=== PATIENT | female | born 1960 | race Caucasian/White ===

== ENCOUNTER 2024-12-13 19:33 | Emergency (ER) | payer OTHER, SELFPAY ==
[2024-12-13 19:31] VITALS: BP 124/71; PULSE 68; TEMP 36.8; O2SAT 99; BMI 27.6
--- NOTE | 2024-12-13 19:42 | ED_ITS ---
HPI HPI - General Adult General Chief complaint: Dizziness Stated complaint: DIZZINESS Time Seen by Provider: 12/13/24 19:34 Source: patient Mode of arrival: ambulance History of Present Illness HPI narrative: 64-year-old female presented to the emergency department for an episode of vertigo. She was sitting on a couch at home just before coming into the emergency department and for about 5 minutes she felt like she was spinning. It has now subsided and she does not have a headache. She has had mild episodes like this in the past but never to the point where it had to be looked at by a physician. No headache or localized weakness. No nausea vomiting diarrhea or fever or injury. Related Data Previous Rx's ?Medication ?Instructions ?Recorded meclizine 25 mg tablet 25 mg PO TID PRN dizziness #20 tabs 12/13/24 Allergies Allergy/AdvReac Type Severity Reaction Status Date / Time NSAIDS (Non-Steroidal Allergy Mild Anaphylaxis Verified 12/13/24 19:46 Anti-Inflamma omeprazole (From Prilosec) Allergy Mild Anaphylaxis Verified 12/13/24 19:46 Penicillins Allergy Mild Anaphylaxis Verified 12/13/24 19:46 Sulfa (Sulfonamide Allergy Mild Anaphylaxis Verified 12/13/24 19:46 Antibiotics) Opioid HPI Opioid Management Most Recent Opioid Data: No Data to Display Review of Systems ROS Narrative A ten point review of systems is negative except as noted above. PFSH PFSH Social History Little interest or pleasure in doing things: not at all Feeling down, depressed, or hopeless: not at all Exam Narrative Exam Narrative: Nurses note and vital signs reviewed and patient is not hypoxic. General: The patient appears well and in no apparent distress. Patient is resting comfortably on cart. Skin: Warm, dry, no pallor noted. There is no rash noted. Head: Normocephalic, atraumatic; neck supple Eye: Normal conjunctiva, no drainage, EOMI. PERRL Ears, Nose, Mouth, and Throat: oral mucosa is moist. Nares patent. TMs are normal Cardiovascular: Regular Rate and Rhythm Respiratory: Patient is in no distress, no accessory muscle use, lungs are clear to auscultation, no wheezing, rales or rhonchi Back: non-tender GI: Soft and nontender. Musculoskeletal: The patient has no evidence of calf tenderness, no pitting edema, symmetrical pulses noted bilaterally Neurological: A&O x4, normal speech; upper and lower extremity strength intact Psychiatric: Cooperative Constitutional Vital Signs, click to edit/add: Last Vital Signs Temp 98.2 F 12/13/24 19:31 Pulse 63 12/13/24 21:43 Resp 16 12/13/24 21:43 BP 104/77 12/13/24 21:43 Pulse Ox 97 12/13/24 21:43 O2 Del Method Room Air 12/13/24 19:31 Course Vital Signs Vital signs: Vital Signs Temperature 98.2 F 12/13/24 19:31 Pulse Rate 68 12/13/24 19:31 Respiratory Rate 16 12/13/24 19:31 Blood Pressure 124/71 12/13/24 19:31 Pulse Oximetry 99 12/13/24 19:31 Oxygen Delivery Method Room Air 12/13/24 19:31 Temperature 98.2 F 12/13/24 19:31 Pulse Rate 63 12/13/24 21:43 Respiratory Rate 16 12/13/24 21:43 Blood Pressure 104/77 12/13/24 21:43 Pulse Oximetry 97 12/13/24 21:43 Oxygen Delivery Method Room Air 12/13/24 19:31 Medical Decision Making MDM Narrative Medical decision making narrative: Her workup including CT brain is negative. She remains asymptomatic. She will be discharged home with a prescription for Antivert and follow-up with her doctor if needed. Treatment diagnosis and follow-up were discussed with the patient. Differential Diagnosis Differential Diagnosis: Vertigo, ICH, dehydration, electrolyte imbalance, anemia Lab Data Lab results reviewed: Yes I reviewed the patient's lab results Labs: Lab Results 12/13/24 Range/Units 20:00 WBC 3.2 L (4.0-11.0) 10^3/uL RBC 4.04 L (4.20-5.40) 10^6/uL Hgb 13.0 (12.0-16.0) g/dL Hct 39.4 (36.0-48.0) % MCV 97.5 (81.0-99.0) fL MCH 32.2 (26.7-34.0) pg MCHC 33.0 (29.9-35.2) g/dL RDW 11.6 (11.0-15.0) % Plt Count 127 L (150-450) 10^3/uL MPV 8.8 L (9.5-13.5) fL Neut % (Auto) 46.6 (43.0-75.0) % Lymph % (Auto) 38.9 (20.5-60.0) % Greer % (Auto) 9.2 (1.7-12.0) % Eos % (Auto) 4.1 (0.9-7.0) % Baso % (Auto) 0.9 (0.2-2.0) % Neut # (Auto) 1.5 (1.4-6.5) 10^3/uL Lymph # (Auto) 1.2 (1.2-3.8) 10^3/uL Greer # (Auto) 0.3 (0.3-0.8) 10^3/uL Eos # (Auto) 0.1 (0.0-0.7) 10^3/uL Baso # (Auto) 0.0 (0.0-0.1) 10^3/uL Abs Immat Gran (auto) 0.01 (0.00-0.03) 10^3/uL Imm/Tot Granulo (auto) 0.3 (0.0-0.5) % Sodium 143 (136-145) mmol/L Potassium 3.8 (3.5-5.1) mmol/L Chloride 108 H (98-107) mmol/L Carbon Dioxide 27.7 (21.0-32.0) mmol/L Anion Gap 11.1 BUN 9.0 (7.0-18.0) mg/dL Creatinine 1.02 (0.55-1.02) mg/dL Est GFR ( Amer) >60 (>=60 mL/min/1.73m^2) Est GFR (Non-Af Amer) 55 L (>=60 mL/min/1.73m^2) BUN/Creatinine Ratio 8.8 Glucose 97 (74-106) mg/dL Calcium 8.6 (8.5-10.1) mg/dL ECG Data Attestation: I personally reviewed and interpreted this ECG as follows: (EKG on my interpretation shows normal sinus rhythm with rate of 63 and no acute change) Discharge Plan Discharge Chief Complaint: Dizziness Clinical Impression: Vertigo Patient Disposition: Home, Self-Care Time of Disposition Decision: 22:14 Condition: Good Mode of Transportation: Private Vehicle Prescriptions / Home Meds: New meclizine 25 mg tablet 25 mg PO TID PRN (Reason: dizziness) Qty: 20 0RF Print Language: Citizen Of [place] Instructions: Vertigo (ED) Referrals: Physician,Non-Staff, MD [Physician] - 1 week
[2024-12-13] MEDS: MECLIZINE HCL 12.5 MG TABLET 25 MG PO (20:01)
[2024-12-13 20:20] LABS: Basophils Percent Auto 0.9 % (0.2-2.0); Eosinophils Absolute Auto 0.1 10^3/uL (0.0-0.7); Eosinophils Percent Auto 4.1 % (0.9-7.0); Hematocrit 39.4 % (36.0-48.0); Immature Granulocytes Abs Auto 0.01 10^3/uL (0.00-0.03); Immature Granulocytes Pct Auto 0.3 % (0.0-0.5); Lymphocytes Absolute Auto 1.2 10^3/uL (1.2-3.8); Lymphocytes Percent Auto 38.9 % (20.5-60.0); Mean Corpuscular Hemoglobin 32.2 pg (26.7-34.0); Mean Corpuscular Volume 97.5 fL (81.0-99.0); Mean Platelet Volume 8.8 fL (9.5-13.5); Monocytes Absolute Auto 0.3 10^3/uL (0.3-0.8); Monocytes Percent Auto 9.2 % (1.7-12.0); Neutrophils Absolute Auto 1.5 10^3/uL (1.4-6.5); Neutrophils Percent Auto 46.6 % (43.0-75.0); Platelet Count 127 10^3/uL (150-450); Red Blood Count 4.04 10^6/uL (4.20-5.40); Red Cell Distribution Width 11.6 % (11.0-15.0); White Blood Count 3.2 10^3/uL (4.0-11.0)
[2024-12-13 20:24] LABS: Anion Gap 11.1; BUN Creatinine Ratio 8.8; Calcium 8.6 mg/dL (8.5-10.1); Carbon Dioxide 27.7 mmol/L (21.0-32.0); Chloride 108 mmol/L (98-107); Estimated GFR (African America >60 (>=60 mL/min/1.73m^2); Estimated GFR (Non-African Ame 55 (>=60 mL/min/1.73m^2); Glucose 97 mg/dL (74-106); Potassium 3.8 mmol/L (3.5-5.1); Sodium 143 mmol/L (136-145)
[2024-12-13 20:58] VITALS: BP 123/79; PULSE 67; O2SAT 98
[2024-12-13 21:43] VITALS: BP 104/77; PULSE 63; O2SAT 97
[2024-12-13 22:22] VITALS: BP 110/65; PULSE 88; O2SAT 99
== END 2024-12-13 22:24 | disposition home or self-care (01) ==
PROVIDERS: Emergency Provider Emergency Medicine
DX: R42 Dizziness and giddiness (principal)
CPT/HCPCS: 36415; 70450; 80048; 85025; 93005; 99285

== ENCOUNTER 2025-05-31 09:46 | Outpatient (OUT) | payer OTHER, SELFPAY ==
--- NOTE | 2025-05-31 | XR_ITS ---
The [address] [address] Patient Name: ALEXYS GRAY MRN: [id number] date: 1960 Sex: F Assigned Patient Location: [facility] Current Patient Location: [facility] Accession/Order Number: [id number] Exam Date: 05/31/2025 10:05 Report Date: 05/31/2025 11:09 At the request of: CHAD ROJAS MD Procedure: XR hip RT 1V w/ pelvis AP WEIGHTBEARING PELVIS AND RIGHT HIP - 2 views COMPARISON: None CLINICAL DATA: Right hip pain for the past year radiating to the groin and thigh. No injury. Weightbearing AP view of pelvis and crosstable lateral view of the hip were obtained. There is osteopenia. There is no acute fracture or dislocation. The joint spaces are symmetric. There is minor hypertrophy at the periphery of the femoral heads. There is subtle sclerosis at the superior aspect of the femoral heads on the AP view. There is mild sclerosis at the SI joints, greater on the right. There is also mild degenerative change involving the lower imaged lumbar spine. XR/XR hip RT 1V w/ pelvis IMPRESSION: OSTEOPENIA AND DEGENERATIVE CHANGES, DESCRIBED. EARLY AVASCULAR NECROSIS OF THE HIPS IS NOT EXCLUDED ON THE CURRENT EXAM AND FOLLOW-UP COULD BE OBTAINED CLINICALLY WARRANTED. Impression dictated by: Rea Michele M.D. 05/31/2025 11:09 AM Dictation Location: [place] [address] Electronically authenticated by: [id number] Y Date: 05/31/2025 11:09
--- OUTSIDE RECORDS SUMMARY | 2025-05-31 09:54 | XMS_ITS | CCD ---
Author Organization [facility] CliniSyin Care Team Providers Care Seasoner Hand Name Role Phone RANDALL CHRISTENSEN Attending Unavailable Teto Tillman Referring Unavailab le Cal, Teto Werner Primary Care UnavailCHAD Germain Attending Unavailable Baljeet Barnard Referring Unavailable Cal, Teto Werner Primary Care Unavailab CHAD Graf Attending Unavailable Teto Tillman Referring Unavailab le Cal, Teto Werner Primary Care Unavailab Baljeet Hodge Primary Care Provider [phone] Cal, Teto Unavailable Cal, Teto Unavailable Cal, Teto Unavailable Cal, DO Teto Sigala Primary Care Provider Merlin Steel Attending Provider Chanell Armstrong Unavailable Cal DOTeto Primary Care Provider Cal DOTeto Primary Care Provider Cal, DO Teto Sigala Primary Care Provider [phone] Merlin Steel Attending Provider [phone] Cal, DO Teto Sigala Primary Care Provider MD Chad Lacy Attending Provider [phone] Teto Tillman DO Primary Care Provider Cal DOTeto Primary Care Provider Cal, DO Teto Sigala Primary Care Provider [phone] Cal, DO Teto Sigala Attending Provider MD Chad Lacy Referring Provider ASHLEIGH RajputN Merlin Oral Attending Provider Teto Tillman DO Primary Care Provider Chad Lacy MD Attending Provider Teto Tillman MD Primary Care Provider ELOISA VANEGAS Attending Unavailable ELOISA VANEGAS Referring Unavailable ELOISA VANEGAS Referring Unavailable JR. WELCH GEORGE C Attending Unavaila ble Yrui Martinez, Padmini DUNLAPjetan Unavailable Teto Tillman DO Primary Care Provider Chad Lacy MD Attending Provider Teto Tillman DO Primary Care Provider Ly Sahara DUNLAP Attending Provider [phone] Ly Sahara DUNLAP Other Provider [phone] Sahara Gomez Admitting Unavailable Sahara Gomez Attending Unavailable Teto Tillman Primary Care Unavailable Teto Tillman Primary Care Unavailable Perhtara, Chad S Admitting Unavailable PerhChad pacheco Attending Unavailable Teto Tillman Primary Care Unavailable Perhtara Chad S Admitting Unavailable PerhChad pacheco Attending Unavailable STEPPADMINI RIVERA JRJETAN Referring Unav ailable BARBARA, CHAD Estevez Attending Unavailable TETO TILLMAN Primary Care Unavailab le TETO TILLMAN Primary Care Unavailab le PERHCHAD PACHECO Attending Unavailable TETO TILLMAN Primary Care Unavailab le [place] Attending Unavailable PERHTARA CHAD S Referring Unavailable STEPPADMINI RIVERA JR CAJETAN Referring Unav ailable AZALEA IZUQIERDO Attending Unavailable TETO TILLMAN Primary Care Unavailab le AZALEA IZQUIERDO Referring Unavailable TETO TILLMAN Primary Care Unavailab le Allergies Allergy Classification Reported Allergen(s) Allergy Type Date of Onset Reaction(s) Facility Aspirin (1 source) Aspirin Drug Allergy 01-28-20 21 Anaphylaxis [facility] Bee pollen (1 source) Bee pollen Drug Allergy 01-14-20 07 Swelling [facility] Cephalosporins (antibiotic) (1 source) Cefaclor Drug Allergy 05-04-20 07 Swelling [facility] Macrolides (antibiotic) (2 sources) Clarithromycin Drug Allergy 07-04-20 19 Other: See Comments, Angioedema [facility] Penicillins (antibiotic) (1 source) Penicillins Drug Allergy 01-14-20 Swelling [facility] Proton Pump Inhibitors (1 source) Omeprazole Drug Allergy 01-14-20 Swelling [facility] Sulfonamides (antibiotic) (1 source) Sulfonamides (Antibiotic) Drug Allergy 01-14-20 Swelling [facility] (20 sources) Bee pollen; Translations: [BEE POLLEN] Drug Allergy 01-14-20 Swelling [facility] (20 sources) Cefaclor; Translations: [CEFACLOR] Drug Allergy 01-14-20 Swelling [facility] (20 sources) Non-steroidal anti-inflammatory agent; Translations: [NSAIDS (NON-STEROIDAL ANTI-INFLAMMATORY DRUG)] Propensity to adverse reactions 01-14-20 Swelling, Angioedema [facility] (20 sources) Omeprazole; Translations: [OMEPRAZOLE] Drug Allergy 01-14-20 07 Swelling, Unknown [facility] (12 sources) Penicillins; Translations: [PENICILLINS] Propensity to adverse reactions 01-14-20 Swelling [facility] (20 sources) Sulfonamides (Antibiotic); Translations: [SULFA (SULFONAMIDE ANTIBIOTICS)] Propensity to adverse reactions 01-14-20 07 Swelling, Angioedema, Unknown [facility] (15 sources) Gold Salts; Translations: [GOLD SALTS] Propensity to adverse reactions 01-14-20 07 Swelling [facility] (13 sources) Bee/Wasp/Ant venom Propensity to adverse reactions Unknown [place] Other (18 sources) Cephalexin Drug Allergy 04-16-20 24 Unknown [facility] (20 sources) Clarithromycin; Translations: [CLARITHROMYCIN] Drug Allergy 07-04-20 19 Other: See Comments [facility] (20 sources) Erythromycin; Translations: [ERYTHROMYCIN] Drug Allergy 01-28-20 21 Angioedema, Other: See Comments, Unknown [facility] (18 sources) Ibuprofen Drug Allergy 04-16-20 24 Unknown, Unknown Reaction [facility] (13 sources) Penicillin V Drug Allergy Unknown [place] Other (13 sources) Sulfamethoxazole Drug Allergy Unknown [place] Other (9 sources) Amoxicillin; Translations: [amoxicillin] Drug Allergy 07-04-20 19 Swelling of Lip/Tongue/Th roat [facility] (9 sources) NSAIDS (Non-Steroidal Anti-Inflamma; Translations: [NSAIDS (Non-Steroidal Anti-Inflamma] Allergy to substance 07-04-20 19 Unknown Reaction [facility] (14 sources) Non-steroidal anti-inflammatory agent Propensity to adverse reactions 01-14-20 Swelling [facility] (13 sources) Penicillins Propensity to adverse reactions 01-14-20 Swelling [facility] (11 sources) Pineapple; Translations: [PINEAPPLE] Propensity to adverse reactions 12-04-19 anaphylaxis [facility] (20 sources) Aspirin; Translations: [ASPIRIN] Drug Allergy 01-28-20 Anaphylaxis [facility] (20 sources) Pineapple Drug Allergy 12-04-19 Anaphylaxis [facility] (6 sources) bee venom protein (honey bee); Translations: [bee venom protein (honey bee)] Allergy to substance 04-16-20 24 unknown [facility] (6 sources) erythromycin base; Translations: [erythromycin base] Allergy to substance 04-16-20 24 Unknown Reaction [facility] (7 sources) Aluminum aspirin Drug Allergy 01-28-20 Anaphylaxis, Unknown [facility] (7 sources) Clarithromycin Allergy to substance 07-04-20 19 Unknown [facility] (7 sources) Honey bee venom Allergy to substance 08-26-20 23 Unknown [facility] (7 sources) Penicillins Drug Intolerance 01-14-20 07 Angioedema, Swelling, Unknown [facility] (7 sources) pineapple allergenic extract Drug Allergy 12-04-19 Anaphylaxis [facility] (12 sources) Gold Salts Propensity to adverse reactions 01-14-20 Swelling [facility] (9 sources) Penicillins Propensity to adverse reactions 01-14-20 Swelling [facility] (1 source) Cephalexin Drug Allergy 03-25-20 [facility] (1 source) Clarithromycin Drug Allergy 03-25-20 [facility] (1 source) Ibuprofen Drug Allergy 03-25-20 [facility] (1 source) Omeprazole Drug Allergy 03-25-20 [facility] (1 source) Penicillins Drug allergy (disorder) 03-25-20 [facility] (1 source) Sulfonamides (Antibiotic) Drug allergy (disorder) 03-25-20 [facility] (1 source) pineapple Drug allergy (disorder) 03-25-20 [facility] Medications Current Medications Medication Drug Class(es) Dates Sig (Normalized) Sig (Original) acetaminophen 325 mg / HYDROcodone bitartrate 10 mg oral tablet (20 sources) Opioid Agonist Start: 04-16-2024 take 1 tablet by mouth once daily as needed for pain Hydrocodone-Aceta minophen 10-325 mg tablet Active 1 TAB PO Daily as needed for pain April 16, 2024 12:00am Complies with drug therapy Start: 08-31-2022 take 1 tablet by mk th every twelve hours as needed HYDROcodone-Acetaminophen (NORCO) 10-325 mg per tablet Take 1 tablet by mouth twice daily as needed. 08/31/2022 Active Start: 07-13-2017 End: 07-04-2019 take 1 tablet by mouth three times daily as needed for pain Hydrocodone-Acetaminophen ([place]) 5-325 mg Tablet Discontinued 1 TAB PO Three times daily as needed for Pain July 13, 2017 12:00am July 04, 2019 2:29pm Start: 01-13-2007 End: 02-01-2022 take 1 tablet by mouth three times daily hydrocodone-acetaminophen (VICODIN ES) 7.5-750 mg ORAL Tab 1 tab 3 times per day 0 01/13/2007 02/01/2022 Discontinued take 1 tablet by mk th every six hours as needed HYDROcodone-acetaminophen (NORCO) 5-325 mg per tablet Take 1 tablet by mouth every 6 hours as needed. 0 Active Comment on above: Take 1 tablet by mk th every 6 hours as needed. 1 tab 3 times per da y Take 1 tablet by mk th twice daily as needed. betamethasone 0.5 mg/ml topical cream (20 sources) Corticosteroid Start: 08-25-2022 betamethasone dipropionate (DIPROSONE) 0.05 % cream APPLY ONE APPLICATION VIA EXTERNAL ROUTE TO AFFECTED AREA ONCE DAILY 08/25/2022 Active Betamethasone Di propionate 0.05 % 1 application to affected area Externally Once a day for 90 days Active Comment on above: APPLY ONE APPLICATIO N VIA EXTERNAL ROUTE TO AFFECTED AREA ONCE DAILY cholecalciferol 0.025 mg oral tablet (20 sources) Vitamin D Start: 07-04-20 take 1 tablet by mouth once daily Cholecalciferol (Vitamin D3) (Vitamin D3) 1,000 unit (25 mcg) Tablet Active 1000 UNIT PO Daily July 04, 2019 12:00am Complies with drug therapy cholecalciferol (VITAMIN D3) 400 unit tab Take 400 Units by mouth. Active take 1 capsule by [facility] every twenty-four hours Vitamin D3 50 MCG (1999 UT) 1 tablet Ora lly Once a day Active Comment on above: Take 400 Units by [facility]. cobamamide 0.1 mg / vitamin b12 5 mg sublingual tablet (8 sources) Vitamin B12 Start: 9 Cyanocobalamin-Cob amamide (B12) 5,000-100 mcg Lozenge Active 2500 MCG SUBLINGUAL Daily July 04, 2019 12:00am Complies with drug therapy diclofenac sodium 0.01 mg/mg topical gel (20 sources) Nonsteroidal Anti-inflammatory Drug Start: 9 End: 4 apply 2 g topically four times daily Diclofenac Sodium (Voltaren) 1 % Gel Active 2 GM TOPICAL Four times daily July 04, 2019 12:00am Complies with drug therapy Voltaren 1 % as directed Transdermal Active Comment on above: Apply 2 g to affecte d area. ferrous sulfate 325 mg oral tablet (20 sources) Start: 07-04-20 take 1 tablet by mouth once daily Ferrous Sulfate (Iron) 325 mg (65 mg iron) Tablet Active 325 MG PO Daily July 04, 2019 12:00am Complies with drug therapy Comment on above: Take 325 mg by mouth . folic acid 1 mg oral tablet (20 sources) Start: 01-14-20 End: 07-04-20 take 1 tablet by mouth once daily folic acid 1 mg ORAL Tab Take one (1) tablet daily. 0 01/13/2007 Active Comment on above: Take one (1) tablet daily. Iron (13 sources) Iron Active lactobacillus acidophilus [id number] unt / pectin 100 mg oral tablet (18 sources) End: 03-19-20 Lactobacillus Acid-Pectin (Acidophilus/[place] Pectin) tablet Take by mouth Active Comment on above: Take by mouth. lidocaine 0.05 mg/mg medicated patch (20 sources) Antiarrhythmic, Amide Local Anesthetic apply 1 dose transdermal route once daily lidocaine (Lidoderm) 5 % patch Place 1 patch on the skin 1 (one) time each day at the same time Active End: 03-19-2024 apply 1 dose transdermal route every twenty-four hours lidocaine (LIDODERM) 5 % Apply 1 Patch as directed q 24 HR. 0 03/19/2024 Discontinued (Course of therapy completed) Lidocaine 5 % 1 to 3 patches Externally daily as needed Active Comment on above: Apply 1 Patch as dir ected q 24 HR. meclizine hydrochloride 25 mg oral tablet (8 sources) Antiemetic Start: 03-25-2025 Meclizine 25 mg tablet Active 25 MG PO 2-3 TIMES PER DAY as needed for dizziness March 25, 2025 12:00am Complies with drug therapy Start: 12-14-2024 take 1 tablet by mk th every eight hours as needed meclizine (ANTIVERT) 25 mg tab Take 25 mg by mouth three times a day as needed. 12/14/2024 Active mecobalamin 1 mg chewable tablet (7 sources) Methylcobalamin ([id number]) 1 MG chewable tablet as directed Orally Active metaxalone 800 mg oral tablet (20 sources) Start: 2006 take 1 tablet by mouth three times daily metaxalone (SKELAXIN) 800 mg ORAL Tab 1 tab 3 times per day 0 01/13/2007 Active Comment on above: 1 tab 3 times per da y methylPREDNISolone (1 source) Corticosteroid Start: 2023 End: 2023 methylPREDNISolone (MEDROL, RENAE,) 4 mg Dose-Pack Indications: Psoriatic arthritis (HCC) Take as directed omn pack 21 tablet 3 03/19/2024 03/25/2024 Active morphine sulfate 30 mg extended release oral tablet (20 sources) Opioid Agonist Start: 2022 take 1 tablet by mouth every twelve hours morphine SR (MS CONTIN) 30 mg 12 hr tablet TAKE ONE TABLET BY MOUTH EVERY 12 HOURS -FILL ON [id number] 11/22/2022 Active Start: 01-13-2007 End: 07-04-2019 take 1 capsule by mouth every twelve hours Morphine 50 mg Capsule,Extend.Release Pellets Discontinued 50 MG PO Q12H July 04, 2019 12:00am July 04, 2019 2:29pm morphine CR (MS Contin) 30 MG 12 hr tablet Take 30 mg by mouth every 12 (twelve) hours Active take 1 tablet by mk th every twelve hours MS Contin 30 MG 1 tablet Orally every 12 hrs pain specialist Active take 1 tablet by mk th every twelve hours MS Contin 60 MG 1 tablet Orally every 12 hrs pain specialist Active Comment on above: 1 tab every 12hours TAKE ONE TABLET BY M OUTH EVERY 12 HOURS -FILL ON [id number] mupirocin 0.02 mg/mg topical ointment (2 sources) RNA Synthetase Inhibitor Antibacterial Start: 5 End: mupirocin (BACTROBAN) 2 % ointment Indications: Avascular necrosis of bone of right hip (HCC) Apply 1/2 inch strip to cotton swab and apply to each nostril twice daily for 5 days prior to and morning of surgery. Patient should start on July 27, 2025. 22 g 07/27/2025 08/01/2025 Active pravastatin sodium 40 mg oral tablet (20 sources) HMG-CoA Reductase Inhibitor Start: 7 End: take 1 tablet by mouth once daily pravastatin (PRAVACHOL) 40 mg tablet TAKE ONE TABLET BY MOUTH DAILY FOR 90 DAYS 12/28/2021 Active Comment on above: TAKE ONE TABLET BY M OUTH DAILY FOR 90 DAYS Probiotic (10 sources) take 2 tablets by mouth once daily Probiotic 2 TABLETS Orally Daily Active SUMAtriptan 100 mg oral tablet (20 sources) Serotonin-1b and Serotonin-1d Receptor Agonist Start: 4 Sumatriptan Succinate 100 mg tablet Active 100 MG PO As Directed as needed for migraine headache April 16, 2024 12:00am Complies with drug therapy Start: 04-16-2024 End: 03-25-2025 Sumatriptan 20 mg/actuation spray,non-aerosol Discontinued 20 MG INTRANASAL Every 2 hours as needed April 16, 2024 12:00am March 25, 2025 7:41am administer into one nostril as a single dose; if 2nd dose needed,administer into other nostril after at least 2 hrs, NTE 2 doses (40 mg) per episode SUMAtriptan (IMI TREX) 20 mg/actuation nasal spray Use 1 [place] in the nose every 2 hours as needed. Active SUMAtriptan (Imi trex) 20 MG/ACT nasal spray Administer 20 mg into one nostril See administration instructions Active take 1 spray(s) nasa l route every two hours SUMAtriptan 20 MG/ACT 1 spray Nasally at onset of headache. Can repeat once two hours later if needed for 30 day(s) Active Comment on above: Take 100 mg by mouth . Use 1 [place] in the n ose every 2 hours as needed. SUMAtriptan 20 MG/ACT (8 sources) take 1 spray(s) nasal route every two hours SUMAtriptan 20 MG/ACT 1 spray Nasally at onset of headache. Can repeat once two hours later if needed Active 24 hr topiramate 100 mg extended release oral capsule (20 sources) Start: 04-16-2024 take 1 capsule by mouth once daily Topiramate (Trokendi Xr) 100 mg capsule,extended release 24hr Active 100 MG PO Daily April 15, 2024 11:00pm Start: 04-16-2024 take [address] [facility] once daily Topiramate (Trokendi Xr) 100 mg capsule,extended release 24hr Active 100 MG PO Daily April 16, 2024 12:00am Start: 01-28-2022 take 1 capsule by mo ut once daily Topiramate (Trokendi Xr) 100 mg capsule,extended release 24hr Active 100 MG PO Daily April 16, 2024 12:00am Complies with drug therapy Start: 01-28-2022 TROKENDI XR 10 0 mg capsule 01/28/2022 Active Start: 07-13-2017 End: 04-16-2024 TROKENDI XR 200 mg capsule 0 01/28/2022 Active take [address] [facility] every twenty-four hours in the morning Trokendi XR 200 MG capsule sustained-release 24 hr Take 1 capsule by mouth in the morning. Active 1 ml ustekinumab 90 mg/ml prefilled syringe (20 sources) Interleukin-12 Antagonist, Interleukin-23 Antagonist Start: 04-16-2024 End: 03-25-2025 Ustekinumab (Stelara) 90 mg/mL syringe Discontinued MG SUBCUT EVERY 12 WEEKS April 16, 2024 12:00am March 25, 2025 7:42am Start: 02-01-2022 End: 10-15-2024 inject 1 mL by subcutaneous injection every three months STELARA 90 mg/mL syringe Indications: Psoriatic arthritis (HCC) INJECT 1 ML UNDER THE SKIN EVERY 3 MONTHS 1 mL 3 10/15/2024 Active Stelara 45 MG/0. 5ML as directed Subcutaneous environmental monitoring technician Active Comment on above: Inject 1 mL subcutan eously every 3 months. Inject 90 mg subcuta neously every 3 months. INJECT 1 ML UNDER TH E SKIN EVERY 3 MONTHS Vitamin B-12 2500 MCG (5 sources) Vitamin B-12 250 0 MCG Sublingual Active vitamin b12 0.1 mg oral tablet (20 sources) Vitamin B12 cyanocobalamin ( VITAMIN B-12) 100 mcg tab Take 100 mcg by mouth. Active Vitamin B-12 250 0 MCG Sublingual Active Vitamin B-12 250 0 MCG Sublingual Active Comment on above: Take 100 mcg by mout h. Completed/Discontinued Medications Medication Drug Class(es) Dates Sig (Normalized) Sig (Original) carvedilol 12.5 mg oral tablet (20 sources) alpha-Adrenergic Kory, beta-Adrenergic Kory Start: 12-26-2023 End: 12-26-2023 take 2 tablets by mouth twice daily Carvedilol 12.5 mg tablet Discontinued 25 MG PO Twice daily 360 90 December 26, 2023 12:59pm December 26, 2023 1:14pm Start: 12-26-2023 End: 12-26-2023 take 25 mg by mouth twice daily Carvedilol Discontinue d 25 MG PO Twice daily 360 90 December 26, 2023 12:59pm December 26, 2023 1:14pm Start: 11-01-2022 End: 03-18-2025 take 1 tablet by mouth twice daily at mealtime carvedilol (COREG) 12.5 mg tablet TAKE ONE TABLET BY MOUTH TWICE A DAY ( IN THE MORNING AND IN THE EVENING ) WITH FOOD 11/01/2022 Active Start: 07-13-2017 End: 12-26-2023 take 1 tablet by mouth twice daily Carvedilol 25 mg tablet Discontinued 25 MG PO Twice daily December 26, 2023 12:59pm December 26, 2023 1:00pm Comment on above: Take 25 mg by mouth. TAKE ONE TABLET BY M OUTH TWICE A DAY ( IN THE MORNING AND IN THE EVENING ) WITH FOOD cyclobenzaprine hydrochloride 10 mg oral tablet (8 sources) Muscle Relaxant Start: End: take 1 tablet by mouth three times daily as needed for muscle spasms Cyclobenzaprine 10 mg Tablet Discontinued 10 MG PO Three times daily as needed for Muscle Spasm July 13, 2017 12:00am July 04, 2019 2:29pm DULoxetine 30 mg delayed release oral capsule (20 sources) Serotonin and Norepinephrine Reuptake Inhibitor Start: End: take 2 capsules by mouth once daily Duloxetine 30 mg capsule,delayed release(DR/EC) Discontinued 60 MG PO Daily April 16, 2024 3:01pm April 30, 2024 11:42am Start: 04-16-2024 take 60 mg by mouth once daily Duloxetine Active 60 MG PO Daily April 16, 2024 3:01pm Start: 07-04-2019 End: 04-16-2024 take 1 capsule by mouth once daily Duloxetine 30 mg capsule,delayed release(DR/EC) Discontinued 30 MG PO Daily 90 90 April 09, 2024 2:46pm April 16, 2024 3:07pm Start: 01-13-2007 End: 01-22-2025 take 1 tablet by mouth once daily duloxetine (CYMBALTA) 60 mg ORAL CpDR Take one(1) tablet daily. 0 01/13/2007 Active Comment on above: Take one(1) tablet d aily. eletriptan 40 mg oral tablet (1 source) Serotonin-1b and Serotonin-1d Receptor Agonist Start: 01-13-2007 End: 02-01-2022 eletriptan (RELPAX) 40 mg ORAL Tab prn 0 01/13/2007 02/01/2022 Discontinued Comment on above: prn EPINEPHrine (13 sources) alpha-Adrenergic Agonist, beta-Adrenergic Agonist, Catecholamine Start: 05-03-2016 EpiPen 0.3 MG/0.3ML as directed for allergic reaction Injection once for 30 days Apr, Not-Taking/PRN Start: 05-03-2016 EpiPen 0.3 MG/ 0.3ML as directed for allergic reaction Injection once for 30 days Apr, Not-Taking Start: 05-03-2016 EpiPen 0.3 MG/ 0.3ML as directed for allergic reaction Injection once for 30 days Apr, Active Start: 05-03-2016 EpiPen 0.3 MG/ 0.3ML as directed for allergic reaction Injection Apr, Active fluticasone propionate 0.05 mg/actuat metered dose nasal spray (11 sources) Corticosteroid Start: 08-19-2021 take 1 spray(s) nasal route once daily as needed Fluticasone Propionate 50 MCG/ACT 1 spray in each nostril Nasally Once a day for 90 day(s) Aug, Not-Taking/PRN Start: 08-19-2021 take 1 spray(s) nasa l route once daily Fluticasone Propionate 50 MCG/ACT 1 spray in each nostril Nasally Once a day for 90 day(s) Aug, Not-Taking predniSONE 20 mg oral tablet (20 sources) Start: 07-08-2021 take 2 tablets by mouth every twenty-four hours predniSONE 20 MG 2 tablet Orally Once a day for 6 day(s) Jun, Not-Taking/PRN Start: 07-13-2017 End: 07-18-2017 take 2 tablets by mouth once daily at mealtime Prednisone 20 mg tablet Discontinued 40 MG PO Daily 06 16July 13, 2017 12:00am July 17, 2017 12:00am July 18, 2017 1:04am administer with food or milk Start: 07-13-2017 End: 07-18-2017 take 40 mg by mouth once daily at mealtime Prednisone Discontinued 40 MG PO Daily 06 16July 13, 2017 12:00am July 18, 2017 1:04am administer with food or milk 50 ml riTUXimab 10 mg/ml injection (1 source) [id number] Cytolytic Antibody Start: 01-13-2007 End: 02-01-2022 rituximab 10 mg/mL INTRAVEN. Conc salmon calcitonin 200 unt/actuat nasal spray (20 sources) Calcitonin End: 03-19-2024 calcitonin,salmon, (MIACALCIN, FORTICAL) 200 unit/actuation nasal spray Use 1 [place] in the nose. 0 03/19/2024 Discontinued (Discontinued by another Health Care Provider) Calcitonin (Salm on) 200 UNIT/ACT 1 spray in 1 nostril, alternating nostrils daily Nasally Once a day pain specialist Active Comment on above: Use 1 [place] in the n ose. tofacitinib 5 mg oral tablet (8 sources) Start: 07-13-20 17 End: 07-04-20 19 take 1 tablet by mouth twice daily Tofacitinib (Xeljanz) 5 MG tablet Discontinued 5 MG PO Twice daily July 13, 2017 12:00am July 04, 2019 2:29pm 24 hr upadacitinib 15 mg extended release oral tablet (8 sources) Start: 07-04-20 End: 04-16-20 24 take 1 tablet by mouth once daily Upadacitinib (Rinvoq Er) 15 mg Tablet Extended Release 24 Hr Discontinued 15 MG PO Daily July 04, 2019 12:00am April 16, 2024 3:04pm 24 hr venlafaxine 75 mg extended release oral capsule (1 source) Serotonin and Norepinephrine Reuptake Inhibitor Start: 01-14-20 End: 02-02-20 venlafaxine XR (EFFEXOR XR) 75 mg ORAL Cp24 Problems Active Problems Problem Classification Problem Date Documented Da te Episodic/Chronic Coagulation and hemorrhagic disorders (8 sources) Thrombocytopenic disorder; Translations: [Thrombocytopenia, unspecified] 07-04-2019 Chronic Conditions associated with dizziness or vertigo (1 source) Dizziness and giddiness Episodic Deficiency and other anemia (2 sources) Anemia; Translations: [Anemia, unspecified] 03-14-2025 Episodic Deficiency and other anemia (1 source) Anemia, unspecified; Translations: [Anemia, unspecified type] Onset: 5 Episodic Diseases of white blood cells (10 sources) Leukopenia; Translations: [Decreased white blood cell count, unspecified] Chronic Disorders of lipid metabolism (19 sources) Mixed hyperlipidemia; Translations: [Mixed hyperlipidemia] Chronic Epilepsy; convulsions (13 sources) Localization-related symptomatic epilepsy; Translations: [Localization-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, not intractable, without status epilepticus] Chronic Essential hypertension (20 sources) Hypertensive disorder; Translations: [Essential (primary) hypertension] Onset: 1 Resolved: 1 Chronic Gastrointestinal hemorrhage (1 source) Hemorrhage of anus and rectum; Translations: [Hemorrhage of anus and rectum] Onset: 5 Episodic Headache; including migraine (20 sources) Migraine without aura, not refractory ; Translations: [Migraine without aura, not intractable, without status migrainosus] Onset: 1 Resolved: 1 Chronic Immunizations and screening for infectious disease (2 sources) Encounter for immunization Episodic Miscellaneous mental health disorders (14 sources) Psychologic conversion disorder; Translations: [Conversion disorder with seizures or convulsions] Chronic Mood disorders (18 sources) Major depressive disorder, single episode, unspecified; Translations: [Depression] Onset: 1 Resolved: 2 Chronic Nonmalignant breast conditions (13 sources) Breast lump; Translations: [Unspecified lump in breast] Episodic Nonspecific chest pain (2 sources) Other chest pain; Translations: [Other chest pain] 04-16-2024 Episodic Osteoarthritis (10 sources) Osteoarthritis of right hip joint; Translations: [Osteoarthritis of left hip joint] Onset: 5 03-11-2025 Chronic Other aftercare (6 sources) Taking high risk medication; Translations: [Other keno terminal operator (current) drug therapy] Episodic Other aftercare (1 source) Encounter for therapeutic drug level monitoring Episodic Other aftercare (1 source) Long-term current use of ustekinumab; Translations: [Long-term current use of ustekinumab] 03-14-2025 Episodic Other aftercare (1 source) Other keno terminal operator (current) drug therapy; Translations: [High risk medication use] Onset: 5 Episodic Other bone disease and musculoskeletal deformities (5 sources) Avascular necrosis of bone of hip; Translations: [Idiopathic aseptic necrosis of left femur] 11-14-2023 Chronic Other bone disease and musculoskeletal deformities (16 sources) Avascular necrosis of bone of hip; Translations: [Idiopathic aseptic necrosis of right femur] 08-13-2024 Chronic Other bone disease and musculoskeletal deformities (1 source) Idiopathic aseptic necrosis of right femur; Translations: [Avascular necrosis of bone of right hip (HCC)] Onset: 5 Chronic Other bone disease and musculoskeletal deformities (2 sources) Disorder of skeletal system; Translations: [Disorder of bone, unspecified] 03-14-2025 Episodic Other bone disease and musculoskeletal deformities (1 source) Disorder of bone, unspecified; Translations: [Disorder of bone and cartilage] Onset: 5 Episodic Other bone disease and musculoskeletal deformities (1 source) Disorder of cartilage, unspecified; Translations: [Disorder of bone and cartilage] Onset: 5 Episodic Other ear and sense organ disorders (7 sources) Sensorineural hearing loss, bilateral; Translations: [Sensorineural hearing loss, bilateral] Onset: 3 08-26-2023 Chronic Other inflammatory condition of skin (20 sources) Psoriatic arthritis; Translations: [Arthropathic psoriasis, unspecified] Onset: 2 Chronic Other inflammatory condition of skin (20 sources) Psoriasis with arthropathy; Translations: [Other psoriatic arthropathy] Chronic Other inflammatory condition of skin (13 sources) Psoriasis; Translations: [Psoriasis, unspecified] Chronic Other inflammatory condition of skin (3 sources) Arthropathic psoriasis, unspecified; Translations: [Arthropathic psoriasis, unspecified] Onset: 2 Chronic Other inflammatory condition of skin (1 source) Psoriasis, unspecified Chronic Other nervous system disorders (20 sources) Chronic pain syndrome; Translations: [Chronic pain syndrome] 07-04-2019 Chronic Other non-traumatic joint disorders (6 sources) Hip pain; Translations: [Pain in right hip] 08-12-2024 Episodic Other non-traumatic joint disorders (2 sources) Pain in right knee; Translations: [Pain in joint, lower leg] 11-22-2024 Episodic Other upper respiratory disease (11 sources) Chronic rhinitis; Translations: [Chronic rhinitis] Chronic Other upper respiratory disease (1 source) Chronic rhinitis Onset: 1 Resolved: 1 Chronic Other upper respiratory infections (13 sources) Chronic sinusitis; Translations: [Chronic sinusitis, unspecified] Chronic Otitis media and related conditions (13 sources) Dysfunction of bilateral eustachian tubes; Translations: [Other specified disorders of Eustachian tube, bilateral] Episodic Residual codes; unclassified (13 sources) Idiopathic sleep related non-obstructive alveolar hypoventilation; Translations: [Idiopathic sleep related nonobstructive alveolar hypoventilation] Chronic Residual codes; unclassified (13 sources) Sleep apnea; Translations: [Sleep apnea, unspecified] Chronic Residual codes; unclassified (13 sources) Obstructive sleep apnea syndrome; Translations: [Obstructive sleep apnea (adult) (pediatric)] Chronic Residual codes; unclassified (13 sources) Dyssomnia; Translations: [Sleep disorder, unspecified] Episodic Residual codes; unclassified (1 source) Procedure and treatment not carried out because of patient's decision for unspecified reasons Episodic Residual codes; unclassified (2 sources) Postmenopausal state; Translations: [Asymptomatic menopausal state] 03-14-2025 Episodic Residual codes; unclassified (1 source) Asymptomatic menopausal state; Translations: [Asymptomatic postmenopausal status] Onset: 5 Episodic Rheumatoid arthritis and related disease (20 sources) Rheumatoid arthritis of multiple joints; Translations: [Rheumatoid arthritis without rheumatoid factor, multiple sites] Onset: 2 Chronic Spondylosis; intervertebral disc disorders; other back problems (6 sources) Sciatica; Translations: [Sciatica, unspecified side] 07-13-2017 Episodic Sprains and strains (7 sources) Strain of muscle and tendon of back wall of thorax, initial encounter; Translations: [Low back strain] Onset: 1 Resolved: 1 Episodic Unclassified (1 source) Long-term current use of ustekinumab; Translations: [Long-term current use of ustekinumab] Onset: 5 Past or Other Problems Problem Classification Problem Date Documented Date Episodic/Chronic Abdominal pain (1 source) Unspecified abdominal pain Onset: 11-23-2021 Resolved: 11-23-2021 Episodic Other connective tissue disease (7 sources) Full thickness rotator cuff tear; Translations: [Complete rotator cuff tear or rupture of left shoulder, not specified as traumatic] Onset: 08-26-2023 Resolved: 08-26-2023 08-26-2023 Episodic Other screening for suspected conditions (not mental disorders or infectious disease) (1 source) Encounter for screening for cardiovascular disorders Onset: 08-19-2021 Resolved: 08-19-2021 Episodic Results Test Name Value Interpretation Reference Range Facility [facility] ([id number]) 1960 F Date Time Provider Department 05/28/25 CHAD LACY During your visit today, we recorded the following information about you: NaveedShannan LPN 05/28/2025 3:22 PM Signed Ustekinumab-ttwe 90MG/ML syringes prior authorization initiated on Cover My Meds. Pending. ALESSANDRA GRAY (Mullen: [id number]) RM Rx #: [id number] Allergies As of Date: 05/28/2025 Noted Allergy Reaction ASPIRIN 01/27/2021 10 - Anaphylaxis CLARITHROMYCIN 07/04/2019 14 - Other: See Comments Comments: Swelling of lips and tongue BEE POLLEN 01/13/2007 7 - Swelling CECLOR (CEFACLOR) 01/13/2007 7 - Swelling ERYTHROMYCIN 01/27/2021 18 - Angioedema 14 - Other: See Comments Comments: Hives, tongue swelling GOLD SALTS 01/13/2007 7 - Swelling NSAIDS (NON-STEROIDAL ANTI-INFLAM* 7 - Swelling PENICILLINS 01/13/2007 7 - Swelling PINEAPPLE 12/03/2022 10 - Anaphylaxis PRILOSEC (OMEPRAZOLE) 01/13/2007 7 - Swelling SULFA (SULFONAMIDE ANTIBIOTICS) 01/13/2007 7 - Swelling Date Reviewed: 03/14/2025 Reviewed by: Cassi Onofre OCCA - Fully Assessed Reason for Visit: Insurance Authorization [[id number]] Cmt: Ustekinumab-ttwe 90MG/ML syringes Prescriptions as of 05/28/2025 - mupirocin (BACTROBAN) 2 % ointment Apply 1/2 inch strip to cotton swab and apply to each nostril twice daily for 5 days prior to and morning of surgery. Patient should start on July 27, 2025. - meclizine (ANTIVERT) 25 mg tab Take 25 mg by mouth three times a day as needed. - STELARA 90 mg/mL syringe INJECT 1 ML UNDER THE SKIN EVERY 3 MONTHS - betamethasone dipropionate (DIPROSONE) 0.05 % cream APPLY ONE APPLICATION VIA EXTERNAL ROUTE TO AFFECTED AREA ONCE DAILY - carvedilol (COREG) 12.5 mg tablet TAKE ONE TABLET BY MOUTH TWICE A DAY ( IN THE MORNING AND IN THE EVENING ) WITH FOOD - HYDROcodone-Acetamino phen (NORCO) 10-325 mg per tablet Take 1 tablet by mouth twice daily as needed. - morphine SR (MS CONTIN) 30 mg 12 hr tablet TAKE ONE TABLET BY MOUTH EVERY 12 HOURS -FILL ON 3111015 - TROKENDI XR 100 mg capsule - TROKENDI XR 200 mg capsule - pravastatin (PRAVACHOL) 40 mg tablet TAKE ONE TABLET BY MOUTH DAILY FOR 90 DAYS - SUMAtriptan (IMITREX) 100 mg tablet Take 100 mg by mouth. - SUMAtriptan (IMITREX) 20 mg/actuation nasal spray Use 1 [place] in the nose every 2 hours as needed. - cyanocobalamin (VITAMIN B-12) 100 mcg tab Take 100 mcg by mouth. - ferrous sulfate 325 mg (65 mg iron) tablet Take 325 mg by mouth. - cholecalciferol (VITAMIN D3) 400 unit tab Take 400 Units by mouth. - duloxetine (CYMBALTA) 60 mg ORAL CpDR Take one(1) tablet daily. - folic acid 1 mg ORAL Tab Take one (1) tablet daily. - metaxalone (SKELAXIN) 800 mg ORAL Tab 1 tab 3 times per day Problem List As Of Date 05/28/2025 Noted Resolved Psoriatic arthritis (HCC) [L40.50] 02/01/2022 Rheumatoid arthritis of multiple sites with neg*02/01/2022 Encounter Status:Closed by SHANNAN CORADO on 05/28/25 [facility] [place] Tele[facility] (MYESHA) ALESSANDRA GRAY ([id number]) 1960 F Date Time Provider Department 03/18/25 CHAD LACY During your visit today, we recorded the following information about you: Eloisa May RN 03/18/2025 10:14 AM Signed Pt is identified by name and birthdate: Yes Patient calls states she received a letter from [facility] that they want to send a Biologic Medication instead of Stelara Pt requesting call Please advise Shannan Corado LPN 03/18/2025 4:07 PM Signed Called Alessandra, concerned that insurance change medication to a bio-similar. Let patient know that Dr. Lacy is aware of bio-similars and the change is what insurance will approve. Allergies As of Date: 03/18/2025 Noted Allergy Reaction ASPIRIN 01/27/2021 10 - Anaphylaxis CLARITHROMYCIN 07/04/2019 14 - Other: See Comments Comments: Swelling of lips and tongue BEE POLLEN 01/13/2007 7 - Swelling CECLOR (CEFACLOR) 01/13/2007 7 - Swelling ERYTHROMYCIN 01/27/2021 18 - Angioedema 14 - Other: See Comments Comments: Hives, tongue swelling GOLD SALTS 01/13/2007 7 - Swelling NSAIDS (NON-STEROIDAL ANTI-INFLAM* 7 - Swelling PENICILLINS 01/13/2007 7 - Swelling PINEAPPLE 12/03/2022 10 - Anaphylaxis PRILOSEC (OMEPRAZOLE) 01/13/2007 7 - Swelling SULFA (SULFONAMIDE ANTIBIOTICS) 01/13/2007 7 - Swelling Date Reviewed: 03/14/2025 Reviewed by: Cassi Onofre OCCA - Fully Assessed Reason for Visit: Medication Problem [65] Prescriptions as of 03/18/2025 - meclizine (ANTIVERT) 25 mg tab Take 25 mg by mouth three times a day as needed. - STELARA 90 mg/mL syringe INJECT 1 ML UNDER THE SKIN EVERY 3 MONTHS - betamethasone dipropionate (DIPROSONE) 0.05 % cream APPLY ONE APPLICATION VIA EXTERNAL ROUTE TO AFFECTED AREA ONCE DAILY - carvedilol (COREG) 12.5 mg tablet TAKE ONE TABLET BY MOUTH TWICE A DAY ( IN THE MORNING AND IN THE EVENING ) WITH FOOD - HYDROcodone-Acetamino phen (NORCO) 10-325 mg per tablet Take 1 tablet by mouth twice daily as needed. - morphine SR (MS CONTIN) 30 mg 12 hr tablet TAKE ONE TABLET BY MOUTH EVERY 12 HOURS -FILL ON [id number] - TROKENDI XR 100 mg capsule - TROKENDI XR 200 mg capsule - pravastatin (PRAVACHOL) 40 mg tablet TAKE ONE TABLET BY MOUTH DAILY FOR 90 DAYS - SUMAtriptan (IMITREX) 100 mg tablet Take 100 mg by mouth. - SUMAtriptan (IMITREX) 20 mg/actuation nasal spray Use 1 [place] in the nose every 2 hours as needed. - cyanocobalamin (VITAMIN B-12) 100 mcg tab Take 100 mcg by mouth. - ferrous sulfate 325 mg (65 mg iron) tablet Take 325 mg by mouth. - cholecalciferol (VITAMIN D3) 400 unit tab Take 400 Units by mouth. - duloxetine (CYMBALTA) 60 mg ORAL CpDR Take one(1) tablet daily. - folic acid 1 mg ORAL Tab Take one (1) tablet daily. - metaxalone (SKELAXIN) 800 mg ORAL Tab 1 tab 3 times per day Problem List As Of Date 03/18/2025 Noted Resolved Psoriatic arthritis (HCC) [L40.50] 02/01/2022 Rheumatoid arthritis of multiple sites with neg*02/01/2022 Encounter Status:Closed by SHANNAN CORADO on 03/18/25 [facility] CNOVon 03-14-2025 CNOV Office Visit (ORAVON ) ALESSANDRA GRAY ([id number]) 1960 F Date Time Provider Department 03/14/25 11:00 AM AZALEA IZQUIERDO During your visit today, we recorded the following information about you: Azalea Izquierdo PA-C 03/14/2025 1:03 PM Signed CONSULT ORTHOPAEDIC: HIP PRIMARY CARE PHYSICIAN: Teto Tillman DO REFERRING PROVIDER: Padmini Welch Jr [address] [place] [id number] ASSESSMENT AND PLAN Impression: Bilateral Avascular Necrosis, 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 She has a history of psoriatic arthritis as well as chronic pain due to lumbar issues. She is on morphine and [place] daily for her chronic pain. Discussed surgical and nonsurgical intervention. Recommended a DEXA scan as she has not had one. Discussed future right total hip arthroplasty 07/30/2025 at [facility] with Dr. Landeros. Patient has been pre-oped today and given the pre-op wipes and information Patient will need to see Dr. Landeros prior to surgery to meet and sign consents. 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 This pain is increased with activity and weight bearing, and interferes with activities of daily living. These symptoms have continued despite a number of non-surgical measures, including a trial of oral pain medication (for at least 12 weeks). At this point, the patient will not benefit from further PT due to the severity of their condition. The patient's physical examination is consistent with limitations in range of motion, pain with passive range of motion, and an antalgic gait. These examination findings are corroborated by imaging findings of joint space narrowing, periarticular osteophyte formation, and subchondral sclerosis. The patient has been treated by the practice and all reasonable treatments have failed to control the disease, which causes significant pain and limits activities of daily living. The patient has failed conservative treatment and joint replacement surgery was discussed and agreed upon by both provider and patient. The patient has elected to proceed with surgical management to improve function and relieve pain refractory to non-surgical measures: Right Primary Total Hip Arthroplasty as evidenced by six months of unsuccessful non-operative treatment as outlined in the HPI below. Surgery Details Date and Location: At on 08/01/2025. Implants: Fleming Robotic: No Predicted LOS: 1 day (Outpatient candidate) The risks and benefits of surgery were discussed at length including but not limited to the risks of infection, bleeding, nerve or blood vessel injury, deep venous thrombosis, pulmonary embolism, , paralysis, hip dislocation, leg length discrepancy (including requiring use of permanent shoe lift), bone fracture, component loosening or failure requiring re-operation or amputation. Informed consent was obtained and the patient was scheduled. We also discussed fixation strategies including cement and cementless fixation and modern alternative bearings including metal or ceramic with cross-linked polyethylene, [id number] and [id number] as well as advantages and disadvantages of each. We also discussed less invasive surgical approaches and reported benefits and risks of these approaches. The patient has been ordered: Office Visit on 03/14/25 [facility] TOTAL JOINT REPLACEMENT PRE-SURGERY EDUCATION CLASS DXA-AXIAL SKELETON BD DXA TRABECULAR BONE SCORE (TBS) ALBUMIN COMPLETE BLOOD COUNT AND DIFFERENTIAL IRON AND TIBC FERRITIN VITAMIN B12 FOLATE, SERUM RETICULOCYTE COUNT BLOOD MANAGEMENT REFERRAL CONSULT TO [facility] PATIENT PLACED ON RACHEL DANDRE CARE PATH CONSULTS: IMPACT/PACE Consult for preoperative clearance. Total Joint Arthroplasty: Risk Calculator Alessandra Gray has a 5.11% chance of NOT returning home at discharge for a Primary total Hip replacement. Alessandra's estimated Length of Stay is 1 day (Outpatient candidate). Alessandra's 30 day chance of readmission is 1.14%. Readmission Probability 1.14 % (within 30 days following surgery) Estimated LOS 1 day Discharge Disposition Probability D/C to Home 94.89 % D/C to SNF 5.11 % These calculations are based on the following factors: - 65 years of age - sex is not male - BMI of 28.47 kg/m2 - NarxCare score of 392 - 0 hospitalizations in the last 12 months - no history of heart disease - no history of diabetes - no (more content not included)... [facility] CLEMENTE Office Visit (MYESHA ) ALESSANDRA GRAY ([id number]) 1960 F Date Time Provider Department 03/14/25 9:20 AM CHAD LACY During your visit today, we recorded the following information about you: Pulse Blood pressure Weight 73/minute 112/78 77.6 kg Chad Lacy MD 03/14/2025 9:28 AM Signed Rheumatology Outpatient Clinic Date of Service: 03/14/2025 Patient: Alessandra Gray Medical Record: [id number] Primary Care Physician: Teto Tillman DO Last Rheumatology visit: 11/22/2024 (with Chad Lacy) History of Present Illness Alessandra Gray is a 65 year old White female who presents on 03/14/2025 for an in-person visit for evaluation of Psoriatic Arthritis. She is currently taking ustekinumab. HISTORY OF PRESENT ILLNESS This patient is well-known to me from my previous practice with [facility] with a history of psoriatic arthritis/seronegativ e rheumatoid arthritis. This patient has been on several different DMARDs and Biologics over the years. She has tried and failed methotrexate, Arava, Humira/Enbrel, Rituxan, Orencia, Actemra in the past. In the past year she has been on Stelara 45 mg dosage titrated to 90 mg dosage where she has achieved an very good clinical response. She was last seen in September 2021 was doing well and was due for her Stelara in November 2021 when she was unable to achieve prior authorization for the Stelara because I was between offices. She currently experiences stiffness and pain in the hands, wrists shoulders, knees, ankles and feet. She has now even had some right rib pain that is been moderately active. Generally she has done well without any new general medical issues from her other doctors. Meds tried/failed in the past: Methotrexate Leflunomide Humira/Enbrel Actemra Orencia Rituxan Xeljanz/Rinvoq INTERVAL HISTORY Patient returns for reevaluation and management of her psoriatic arthritis/rheumatoid arthritis. Since last visit the patient is main Stelara 90 mg subcutaneously once every 12 weeks. She continues to tolerate the Stelara well. Overall her psoriatic arthritis/rheumatoid arthritis has been doing reasonably well. She has experienced some aches and pains in the fingers and some of the other joints and it seems like it is getting more active at night. It can awaken her at night at times. She did do a recent course of steroids to calm this down. Her knees have been getting more achy even just in the sitting position and will be seeing a [facility] orthopedic surgeon to evaluate her hips. There are no new extra-articular manifestations of her arthritis. She has had ongoing dizziness on and off for the past few years and this has not changed much since last visit. Otherwise the remainder of her general health has remained stable. Patient-Entered Data PAIN EVALUATION No data found in the last 1 encounters. PROMIS Assessments RAPID 3 [place] Activities of Daily Living No Data Dress self? - Get in and out of bed? - Walk outdoors? - Wash and dry body? - Get in and out of car? - RAPID 3 Disease Activity Weighed Score Levels: 0 - 1: Near Remission 1.3 - 2.0: Low Severity 2.3 - 4.0: Moderate Severity 4.3 - 10.0: High Severity Review of Systems ROS RHEUMATOLOGYAll other reviewed and negative other than HPI. Past Medical History No past medical history on file. Past Surgical History No past surgical history on file. Family History No family history on file. Social History Social History Tobacco Use Smoking status: Never Smokeless tobacco: Never Current Medications Current Outpatient Medications Medication Sig meclizine (ANTIVERT) 25 mg tab Take 25 mg by mouth three times a day as needed. STELARA 90 mg/mL syringe INJECT 1 ML UNDER THE SKIN EVERY 3 MONTHS betamethasone dipropionate (DIPROSONE) 0.05 % cream APPLY ONE APPLICATION VIA EXTERNAL ROUTE TO AFFECTED AREA ONCE DAILY carvedilol (COREG) 12.5 mg tablet TAKE ONE TABLET BY MOUTH TWICE A DAY ( IN THE MORNING AND IN THE EVENING ) WITH FOOD HYDROcodone-Acetamino phen (NORCO) 10-325 mg per tablet Take 1 tablet by mouth twice daily as needed. morphine SR (MS CONTIN) 30 mg 12 hr tablet TAKE ONE TABLET BY MOUTH EVERY 12 HOURS -FILL ON 3111015 TROKENDI XR 100 mg capsule TROKENDI XR 200 mg capsule pravastatin (PRAVACHOL) 40 mg tablet TAKE ONE TABLET BY MOUTH DAILY FOR 90 DAYS SUMAtriptan (IMITREX) 100 mg tablet Take 100 mg by mouth. SUMAtriptan (IMITREX) 20 mg/actuation nasal spray Use 1 [place] in the nose every 2 hours as needed. cyanocobalamin (VITAMIN B-12) 100 mcg tab Take 100 mcg by mouth. ferrous sulfate 325 mg (65 mg iron) tablet Take 325 mg by mouth. cholecalciferol (VITAMIN D3) 400 unit tab Take 400 Units by mouth. duloxetine (CYMBALTA) 60 mg ORAL CpDR Take one(1) tablet daily. folic acid 1 mg ORAL Tab Take one (1) tabl (more content not included)... [facility] XR HIP DAVID 5V PEL+ AP/LAT EA HIPon 03-14-2025 XR HIP DAVID 5V PEL+ AP/LAT EA HIP * * *Final Report* * * DATE OF EXAM: Mar 14 2025 10:09AM AFR [id number] - XR HIP DAVID 5V PEL+ AP/LAT EA HIP / PROCEDURE REASON: multiple diagnoses * * * * Physician Interpretation * * * * EXAMINATION / TECHNIQUE: XR HIP DAVID 5V PEL+ AP/LAT EA HIP PATIENT/TECHNOLOGIST PROVIDED HISTORY: CHRONIC BILATERAL HIP PAIN RIGHT IS WORSE CLINICAL INFORMATION ( PROVIDED BY ORDERING CLINICIAN) : Primary osteoarthritis of right hip Primary osteoarthritis of left hip COMPARISON: None RESULT: No acute fracture or dislocation. Patchy sclerosis and lucency in the left femoral head, consistent with avascular necrosis. Minimal, less extensive sclerosis in the right femoral head may be secondary to avascular necrosis as well. No convincing articular surface collapse; slight concavity along the superior central aspects of both femoral heads is favored to be within the limits of normal anatomic variation. Minimal left and mild right hip osteoarthritis. Sacroiliac joints and pubic symphysis are intact. Incompletely evaluated degenerative changes in the lower lumbar spine. IMPRESSION: Left femoral head avascular necrosis. Suspected less extensive avascular necrosis in the right femoral head, as well. No definite articular surface collapse. [employer]S [employer]ou[employer]: [facility] [employer] Transcribe Date/Time: Mar 14 2025 2:42P Dictated by : HAL MARTINEZ MD This examination was interpreted and the report reviewed and electronically signed by: HAL MARTINEZ MD on Mar 14 2025 2:44PM EST [id number] [facility] XR HIP BILATERAL 5V PEL/AP/L AT EACH HIPon 03-14-2025 IMPRESSION: Left femoral head avascular necrosis. Suspected less extensive avascular necrosis in the right femoral head, as well. No definite articular surface collapse. Builder'S Labourer: [facility] Transcribe Date/Time: Mar 14 2025 2:42P Dictated by : HAL MARTINEZ MD This examination was interpreted and the report reviewed and electronically signed by: HAL MARTINEZ MD on Mar 14 2025 2:44PM EST DIVISION OF RADIOLOGY * * *Final Report* * * DATE OF EXAM: Mar 14 2025 10:09AM AFR [id number] - XR HIP DAVID 5V PEL+ AP/LAT EA HIP / PROCEDURE REASON: multiple diagnoses * * * * Physician Interpretation * * * * EXAMINATION / TECHNIQUE: XR HIP DAVID 5V PEL+ AP/LAT EA HIP PATIENT/TECHNOLOGIST PROVIDED HISTORY: CHRONIC BILATERAL HIP PAIN RIGHT IS WORSE CLINICAL INFORMATION ( PROVIDED BY ORDERING CLINICIAN) : Primary osteoarthritis of right hip Primary osteoarthritis of left hip COMPARISON: None RESULT: No acute fracture or dislocation. Patchy sclerosis and lucency in the left femoral head, consistent with avascular necrosis. Minimal, less extensive sclerosis in the right femoral head may be secondary to avascular necrosis as well. No convincing articular surface collapse; slight concavity along the superior central aspects of both femoral heads is favored to be within the limits of normal anatomic variation. Minimal left and mild right hip osteoarthritis. Sacroiliac joints and pubic symphysis are intact. Incompletely evaluated degenerative changes in the lower lumbar spine. DIVISION OF RADIOLOGY Provider, [facility] - 03/14/2025 * * *Final Report* * * DATE OF EXAM: Mar 14 2025 10:09AM AFR [id number] - XR HIP DAVID 5V PEL+ AP/LAT EA HIP / PROCEDURE REASON: multiple diagnoses * * * * Physician Interpretation * * * * EXAMINATION / TECHNIQUE: XR HIP DAVID 5V PEL+ AP/LAT EA HIP PATIENT/TECHNOLOGIST PROVIDED HISTORY: CHRONIC BILATERAL HIP PAIN RIGHT IS WORSE CLINICAL INFORMATION ( PROVIDED BY ORDERING CLINICIAN) : Primary osteoarthritis of right hip Primary osteoarthritis of left hip COMPARISON: None RESULT: No acute fracture or dislocation. Patchy sclerosis and lucency in the left femoral head, consistent with avascular necrosis. Minimal, less extensive sclerosis in the right femoral head may be secondary to avascular necrosis as well. No convincing articular surface collapse; slight concavity along the superior central aspects of both femoral heads is favored to be within the limits of normal anatomic variation. Minimal left and mild right hip osteoarthritis. Sacroiliac joints and pubic symphysis are intact. Incompletely evaluated degenerative changes in the lower lumbar spine. IMPRESSION IMPRESSION: Left femoral head avascular necrosis. Suspected less extensive avascular necrosis in the right femoral head, as well. No definite articular surface collapse. Builder'S Labourer: [facility] Transcribe Date/Time: Mar 14 2025 2:42P Dictated by : HAL MARTINEZ MD This examination was interpreted and the report reviewed and electronically signed by: HAL MARTINEZ MD on Mar 14 2025 2:44PM EST [facility] Radiology Study observation (narrative) [facility] XR HIP BILATERAL 5V PEL/AP/L AT EACH HIPOrdered By: [facility] Provider on 03-14-2025 [facility] Susan 03-06-2025 CNPN Telephone (RHEUAV) ALESSANDRA GRAY ([id number]) 1960 F Date Time Provider Department 03/06/25 CHAD LACY RHEUAV During your visit today, we recorded the following information about you: Shannan Corado LPN 03/06/2025 3:23 PM Signed Received results of labs done on 03/04/2025 from [facility] (abnormal results in bold): wbc 4.0 3.4-10.8 Hgb 12.9 11.0-15.9 Hct 38.6 34.0-46.6 plt 132 150-450 MCV 101 79-97 MCH 33.9 26.6-33.0 sed rate 7 0-40 AST 1.19 0.57-1.00 ALT 22 15-59 Cr 1.19 0.57-1.00 Report sent for scanning. Allergies As of Date: 03/06/2025 Noted Allergy Reaction ASPIRIN 01/27/2021 10 - Anaphylaxis CLARITHROMYCIN 07/04/2019 14 - Other: See Comments Comments: Swelling of lips and tongue BEE POLLEN 01/13/2007 7 - Swelling CECLOR (CEFACLOR) 01/13/2007 7 - Swelling ERYTHROMYCIN 01/27/2021 18 - Angioedema 14 - Other: See Comments Comments: Hives, tongue swelling GOLD SALTS 01/13/2007 7 - Swelling NSAIDS (NON-STEROIDAL ANTI-INFLAM* 7 - Swelling PENICILLINS 01/13/2007 7 - Swelling PINEAPPLE 12/03/2022 10 - Anaphylaxis PRILOSEC (OMEPRAZOLE) 01/13/2007 7 - Swelling SULFA (SULFONAMIDE ANTIBIOTICS) 01/13/2007 7 - Swelling Date Reviewed: 07/25/2024 Reviewed by: Eliz Tucker LPN - Fully Assessed Reason for Visit: Results [95] Cmt: Lab Prescriptions as of 03/06/2025 - STELARA 90 mg/mL syringe INJECT 1 ML UNDER THE SKIN EVERY 3 MONTHS - betamethasone dipropionate (DIPROSONE) 0.05 % cream APPLY ONE APPLICATION VIA EXTERNAL ROUTE TO AFFECTED AREA ONCE DAILY - carvedilol (COREG) 12.5 mg tablet TAKE ONE TABLET BY MOUTH TWICE A DAY ( IN THE MORNING AND IN THE EVENING ) WITH FOOD - HYDROcodone-Acetamino phen (NORCO) 10-325 mg per tablet Take 1 tablet by mouth twice daily as needed. - morphine SR (MS CONTIN) 30 mg 12 hr tablet TAKE ONE TABLET BY MOUTH EVERY 12 HOURS -FILL ON 3111015 - TROKENDI XR 100 mg capsule - TROKENDI XR 200 mg capsule - pravastatin (PRAVACHOL) 40 mg tablet TAKE ONE TABLET BY MOUTH DAILY FOR 90 DAYS - SUMAtriptan (IMITREX) 100 mg tablet Take 100 mg by mouth. - SUMAtriptan (IMITREX) 20 mg/actuation nasal spray Use 1 [place] in the nose every 2 hours as needed. - cyanocobalamin (VITAMIN B-12) 100 mcg tab Take 100 mcg by mouth. - ferrous sulfate 325 mg (65 mg iron) tablet Take 325 mg by mouth. - cholecalciferol (VITAMIN D3) 400 unit tab Take 400 Units by mouth. - duloxetine (CYMBALTA) 60 mg ORAL CpDR Take one(1) tablet daily. - folic acid 1 mg ORAL Tab Take one (1) tablet daily. - metaxalone (SKELAXIN) 800 mg ORAL Tab 1 tab 3 times per day Problem List As Of Date 03/06/2025 Noted Resolved Psoriatic arthritis (HCC) [L40.50] 02/01/2022 Rheumatoid arthritis of multiple sites with neg*02/01/2022 Encounter Status:Closed by SHANNAN CORADO on 03/06/25 [facility] Susan 01-03-2025 NIXON Telephone ([employer]) ALESSANDRA GRAY ([id number]) 1960 F Date Time Provider Department 01/03/25 CHAD LACY During your visit today, we recorded the following information about you: Eliz Tucker LPN 01/03/2025 9:06 AM Signed Patient has been identified by name and date of : Yes, Provider Dr. Lacy Date 01/03/2025 Time 9:00 am Type of form: [facility] X-ray results Bilateral knees Form received via: Fax When form is completed, contact N/A. Form has been forwarded to: Provider's desk. Provider name: copy given to Dr. Lacy and one copy sent to bassam Tucker LPN Allergies As of Date: 01/03/2025 Noted Allergy Reaction ASPIRIN 01/27/2021 10 - Anaphylaxis CLARITHROMYCIN 07/04/2019 14 - Other: See Comments Comments: Swelling of lips and tongue BEE POLLEN 01/13/2007 7 - Swelling CECLOR (CEFACLOR) 01/13/2007 7 - Swelling ERYTHROMYCIN 01/27/2021 18 - Angioedema 14 - Other: See Comments Comments: Hives, tongue swelling GOLD SALTS 01/13/2007 7 - Swelling NSAIDS (NON-STEROIDAL ANTI-INFLAM* 7 - Swelling PENICILLINS 01/13/2007 7 - Swelling PINEAPPLE 12/03/2022 10 - Anaphylaxis PRILOSEC (OMEPRAZOLE) 01/13/2007 7 - Swelling SULFA (SULFONAMIDE ANTIBIOTICS) 01/13/2007 7 - Swelling Date Reviewed: 07/25/2024 Reviewed by: Eliz Tucker LPN - Fully Assessed Reason for Visit: Results [95] Cmt: Bilateral knees X-ray Prescriptions as of 01/03/2025 - STELARA 90 mg/mL syringe INJECT 1 ML UNDER THE SKIN EVERY 3 MONTHS - betamethasone dipropionate (DIPROSONE) 0.05 % cream APPLY ONE APPLICATION VIA EXTERNAL ROUTE TO AFFECTED AREA ONCE DAILY - carvedilol (COREG) 12.5 mg tablet TAKE ONE TABLET BY MOUTH TWICE A DAY ( IN THE MORNING AND IN THE EVENING ) WITH FOOD - HYDROcodone-Acetamino phen (NORCO) 10-325 mg per tablet Take 1 tablet by mouth twice daily as needed. - morphine SR (MS CONTIN) 30 mg 12 hr tablet TAKE ONE TABLET BY MOUTH EVERY 12 HOURS -FILL ON 3111015 - TROKENDI XR 100 mg capsule - TROKENDI XR 200 mg capsule - pravastatin (PRAVACHOL) 40 mg tablet TAKE ONE TABLET BY MOUTH DAILY FOR 90 DAYS - SUMAtriptan (IMITREX) 100 mg tablet Take 100 mg by mouth. - SUMAtriptan (IMITREX) 20 mg/actuation nasal spray Use 1 [place] in the nose every 2 hours as needed. - cyanocobalamin (VITAMIN B-12) 100 mcg tab Take 100 mcg by mouth. - ferrous sulfate 325 mg (65 mg iron) tablet Take 325 mg by mouth. - cholecalciferol (VITAMIN D3) 400 unit tab Take 400 Units by mouth. - duloxetine (CYMBALTA) 60 mg ORAL CpDR Take one(1) tablet daily. - folic acid 1 mg ORAL Tab Take one (1) tablet daily. - metaxalone (SKELAXIN) 800 mg ORAL Tab 1 tab 3 times per day Problem List As Of Date 01/03/2025 Noted Resolved Psoriatic arthritis (HCC) [L40.50] 02/01/2022 Rheumatoid arthritis of multiple sites with neg*02/01/2022 Encounter Status:Closed by ELIZ TUCKER on 01/03/25 Normal [facility] X-ray reportOrdered By: Annette Michele on 01-02-2025 Study report [facility] [place] [address] XRay Report Signed Patient: Alessandra Gray MR#: [id number] : 1960 Acct:[id number] Age/Sex: 64 / F ADM Date: 5 Loc: ICXD Room: Type: [facility] Attending Dr: Chad Lacy MD, [facility] Copies to: Chad Lacy MD~ Ordering Provider: Chad Lacy MD Date of Service: 01/02/25 XR/XR knee BI 2V: L40.50,M06.09,Z79.899 ,M25.561 BILATERAL KNEES- 2 views each COMPARISON: None CLINICAL DATA: Bilateral knee pain. History of psoriatic and rheumatoid arthritis. AP and lateral views were obtained. There is osteopenia. There are no acute fractures or dislocation. There is a subtle chronic appearing bony ossicle along the anterior margin of the tibial plateau on the right on the lateral view. There is no disproportionate joint space narrowing. There is minimal marginal spurring. There is a trace amount joint fluid bilaterally. There is no soft tissue swelling. XR/XR knee BI 2V IMPRESSION: OSTEOPENIA AND MINOR DEGENERATIVE CHANGES. Impression dictated by: Rea Michele M.D.01/02/2025 6:58 PM Dictation Location: [place] [address] Transcribed By: [facility] 01/02/251857 Dictated By: Rea Michele MD 01/02/251854 Signed By: 01/02/251857 [facility] Work Phone: XR knee BI 2Von 01-02-2025 XR knee BI 2V [facility] [address] [place] [address] [place] [address] XRay Report Signed Patient: Alessandra Gray MR#: [id number] : 1960 Acct:[id number] Age/Sex: 64 / F ADM Date: 01/02/25 Loc: [facility] Room: Type: [facility] Attending Dr: Chad Lacy MD, [facility] Copies to: Chad Lacy MD Ordering Provider: Chad Lacy MD Date of Service: 01/02/25 XR/XR knee BI 2V: L40.50,M06.09,Z79.899 ,M25.561 BILATERAL KNEES- 2 views each COMPARISON: None CLINICAL DATA: Bilateral knee pain. History of psoriatic and rheumatoid arthritis. AP and lateral views were obtained. There is osteopenia. There are no acute fractures or dislocation. There is a subtle chronic appearing bony ossicle along the anterior margin of the tibial plateau on the right on the lateral view. There is no disproportionate joint space narrowing. There is minimal marginal spurring. There is a trace amount joint fluid bilaterally. There is no soft tissue swelling. XR/XR knee BI 2V IMPRESSION: OSTEOPENIA AND MINOR DEGENERATIVE CHANGES. Impression dictated by: Rea Michele M.D.01/02/2025 6:58 PM Dictation Location: [place] [address] Transcribed By: [facility] 01/02/251857 Dictated By: Rea Michele MD 01/02/251854 Signed By: 01/02/251857 Normal [facility] Estimated glomerular filtrat ion rate (GFR) non- Americanon 12-13-2024 GFR/1.73 sq M.predicted among non-blacks MDRD (S/P/Bld) [Vol rate/Area] Estimated glomerular filtration rate (GFR) non- Low >=60 mL/min/1.73m 2 [facility] - Chemistry and C hemistry - challengeon 12-13-2024 Calcium [Mass/Vol] 8.6 mg/dL 8.5-10.1 [facility] Chloride [Moles/Vol] 108 mmol/L High 98-107 [facility] CO2 [Moles/Vol] 27.7 mmol/L 21.0-32.0 [facility] Creatinine [Mass/Vol] 1.02 mg/dL 0.55-1.02 [facility] GFR/1.73 sq M.predicted MDRD (S/P/Bld) [Vol rate/Area] mL/min/{1.73_m2} >=60 mL/min/1.73m 2 [facility] Glucose [Mass/Vol] 97 mg/dL 74-106 [facility] Potassium [Moles/Vol] 3.8 mmol/L 3.5-5.1 [facility] Sodium [Moles/Vol] 143 mmol/L 136-145 [facility] Urea nitrogen [Mass/Vol] 9.0 mg/dL 7.0-18.0 [facility] Urea nitrogen/Creatinine [Mass ratio] 8.8 mg/mg [facility] Serum or plasma anion gap de terminationon 12-13-2024 Anion gap [Moles/Vol] Serum or plasma an ion gap determination [facility] Susan 11-23-2024 NIXON Telephone (FERNANDEZUAJanel) ALESSANDRA GRAY ([id number]) 1960 F Date Time Provider Department 11/23/24 CHAD LACY During your visit today, we recorded the following information about you: Shannan Corado LPN 11/23/2024 11:49 AM Signed Faxed request for recent labs to [facility] lab. Allergies As of Date: 11/23/2024 Noted Allergy Reaction ASPIRIN 01/27/2021 10 - Anaphylaxis CLARITHROMYCIN 07/04/2019 14 - Other: See Comments Comments: Swelling of lips and tongue BEE POLLEN 01/13/2007 7 - Swelling CECLOR (CEFACLOR) 01/13/2007 7 - Swelling ERYTHROMYCIN 01/27/2021 18 - Angioedema 14 - Other: See Comments Comments: Hives, tongue swelling GOLD SALTS 01/13/2007 7 - Swelling NSAIDS (NON-STEROIDAL ANTI-INFLAM* 7 7 - Swelling PENICILLINS 01/13/2007 7 - Swelling PINEAPPLE 12/03/2022 10 - Anaphylaxis PRILOSEC (OMEPRAZOLE) 01/13/2007 7 - Swelling SULFA (SULFONAMIDE ANTIBIOTICS) 01/13/2007 7 - Swelling Date Reviewed: 07/25/2024 Reviewed by: Eliz Tucker LPN - Fully Assessed Reason for Visit: Results [95] Cmt: Labs Prescriptions as of 11/23/2024 - STELARA 90 mg/mL syringe INJECT 1 ML UNDER THE SKIN EVERY 3 MONTHS - betamethasone dipropionate (DIPROSONE) 0.05 % cream APPLY ONE APPLICATION VIA EXTERNAL ROUTE TO AFFECTED AREA ONCE DAILY - carvedilol (COREG) 12.5 mg tablet TAKE ONE TABLET BY MOUTH TWICE A DAY ( IN THE MORNING AND IN THE EVENING ) WITH FOOD - HYDROcodone-Acetamino phen (NORCO) 10-325 mg per tablet Take 1 tablet by mouth twice daily as needed. - morphine SR (MS CONTIN) 30 mg 12 hr tablet TAKE ONE TABLET BY MOUTH EVERY 12 HOURS -FILL ON 3111015 - TROKENDI XR 100 mg capsule - TROKENDI XR 200 mg capsule - pravastatin (PRAVACHOL) 40 mg tablet TAKE ONE TABLET BY MOUTH DAILY FOR 90 DAYS - SUMAtriptan (IMITREX) 100 mg tablet Take 100 mg by mouth. - SUMAtriptan (IMITREX) 20 mg/actuation nasal spray Use 1 [place] in the nose every 2 hours as needed. - cyanocobalamin (VITAMIN B-12) 100 mcg tab Take 100 mcg by mouth. - ferrous sulfate 325 mg (65 mg iron) tablet Take 325 mg by mouth. - cholecalciferol (VITAMIN D3) 400 unit tab Take 400 Units by mouth. - duloxetine (CYMBALTA) 60 mg ORAL CpDR Take one(1) tablet daily. - folic acid 1 mg ORAL Tab Take one (1) tablet daily. - metaxalone (SKELAXIN) 800 mg ORAL Tab 1 tab 3 times per day Problem List As Of Date 11/23/2024 Noted Resolved Psoriatic arthritis (HCC) [L40.50] 02/01/2022 Rheumatoid arthritis of multiple sites with neg*02/01/2022 Encounter Status:Closed by SHANNAN CORADO on 11/23/24 [facility] Brian 11-22-2024 CNOV Office Visit (MYESHA ) ALESSANDRA GRAY ([id number]) 1960 F Date Time Provider Department 11/22/24 9:40 AM CHAD LACY During your visit today, we recorded the following information about you: Pulse Respiration Blood pressure Weight 81/minute 16/minute 112/78 77.6 kg Chad Lacy MD 11/22/2024 9:59 AM Signed [facility] Outpatient [facility] Date of Service: 11/22/2024 Patient: Alessandra Gray Medical Record: [id number] Primary Care Physician: Teto Tillman DO Last Rheumatology visit: 07/25/2024 (with Chad Lacy) History of Present Illness Alessandra Gray is a 64 year old White female who presents on 11/22/2024 for an in-person visit for evaluation of Psoriatic Arthritis. She is currently taking ustekinumab. HISTORY OF PRESENT ILLNESS This patient is well-known to me from my previous practice with [facility] with a history of psoriatic arthritis/seronegativ e rheumatoid arthritis. This patient has been on several different DMARDs and Biologics over the years. She has tried and failed methotrexate, Arava, Humira/Enbrel, Rituxan, Orencia, Actemra in the past. In the past year she has been on Stelara 45 mg dosage titrated to 90 mg dosage where she has achieved an very good clinical response. She was last seen in September 2021 was doing well and was due for her Stelara in November 2021 when she was unable to achieve prior authorization for the Stelara because I was between offices. She currently experiences stiffness and pain in the hands, wrists shoulders, knees, ankles and feet. She has now even had some right rib pain that is been moderately active. Generally she has done well without any new general medical issues from her other doctors. Meds tried/failed in the past: Methotrexate Leflunomide Humira/Enbrel Actemra Orencia Rituxan Xeljanz/Rinvoq INTERVAL HISTORY Patient returns for reevaluation and management of her psoriatic arthritis/rheumatoid arthritis. Since last visit the patient is main Stelara 90 mg subcutaneously once every 12 weeks. She continues to tolerate the Stelara well. Overall her psoriatic arthritis/rheumatoid arthritis has been doing reasonably well. She has experienced some aches and pains in the fingers and some of the other joints. The colder weather has had a negative impact. Her knees have been getting more achy even just in the sitting position. She has also been referred to a [facility] orthopedic surgeon to evaluate her hips. There are no new extra-articular manifestations of her arthritis. She has had ongoing dizziness on and off for the past few years and this has not changed much since last visit. Otherwise the remainder of her general health has remained stable. Patient-Entered Data PAIN EVALUATION No data found in the last 1 encounters. PROMIS Assessments RAPID 3 [place] Activities of Daily Living No Data Dress self? - Get in and out of bed? - Walk outdoors? - Wash and dry body? - Get in and out of car? - RAPID 3 Disease Activity Weighed Score Levels: 0 - 1: Near Remission 1.3 - 2.0: Low Severity 2.3 - 4.0: Moderate Severity 4.3 - 10.0: High Severity Review of Systems Review of Systems CONSTITUTION: Negative for: Weight loss or gain, Fever. Chills, Night sweats HEENT: Negative for: Nosebleeds, Mouth sores, Trouble swallowing, Dry mouth RESPIRATORY: Negative for: Cough, Shortness of breath, Pain with breathing, Coughing up blood GASTROINTESTINAL: Negative for: Melena, Diarrhea, Abdominal pain, Heartburn, MUSCULOSKELETAL: Positive for: Arthralgias and Morning Joint Stiffness Negative for: Myalgias, Muscle weakness and Joint swelling NEUROLOGICAL: Negative for: Headaches, Numbness, Memory loss, SKIN: Positive for: Skin changes Negative for: Rash, Sun Sensitive Rash, Hair loss and Nail changes EYES: Negative for: Eye pain, Eye redness, Visual disturbance, Eye dryness CARDIOVASCULAR: Negative for: Chest pain, Leg swelling, Arrhythmia, Presyncope GENITOURINARY: Negative for: Dysuria, Hematuria, Ulceration HEMATOLOGIC/LYMPHATIC : Negative for: Swollen glands All other reviewed and negative other than HPI. Past Medical History No past medical history on file. Past Surgical History No past surgical history on file. Family History No family history on file. Social History Social History Tobacco Use Smoking status: Never Smokeless tobacco: Never Current Medications Current Outpatient Medications Medication Sig STELARA 90 mg/mL syringe INJECT 1 ML UNDER THE SKIN EVERY 3 MONTHS betamethasone dipropionate (DIPROSONE) 0.05 % cream APPLY ONE APPLICATION VIA EXTERNAL ROUTE TO AFFECTED AREA ONCE DAILY carvedilol (COREG) 12.5 mg tablet TAKE ONE TABLET BY MOUTH TWICE A DAY ( IN THE MORNING AND IN THE EVENING ) WITH FOOD HYDROcodone-Acetamino phen (NORCO) 10-325 mg per tablet Take (more content not included)... Normal [facility] MR HIP RIGHT W AND WO IV CON TRASTon 08-31-2024 MR HIP RIGHT W AND WO IV CONTRAST EXAMINATION/TECHNIQUE : MR HIP RIGHT W AND WO IV CONTRAST History: Bilateral hip pain for 1 year. Right hip worse than the left. No recent injury. Denies prior surgery. Concern for avascular necrosis. Comparison: Radiographs 08/13/2024. RESULT: RIGHT HIP JOINT: Avascular necrosis involving the anterior and superior weightbearing aspects measuring around 3.0 cm AP by 2.0 cm transverse, without evidence for cortical collapse. No surrounding/adjacent edema signal. No distinct measurable full-thickness chondral defect. Degenerative signal within the labrum. No joint effusion. LEFT HIP JOINT: Large [id number] with avascular necrosis involving the anterior and superior weightbearing aspect, measuring around 3.5 cm AP by 2.6 cm transverse, without evidence for cortical collapse. No surrounding/adjacent edema signal. No joint effusion. SI JOINTS: Normal appearing sacroiliac joints bilaterally. PUBIC SYMPHYSIS: Normal appearance. BONE MARROW: Avascular necrosis of the bilateral femoral heads as above. No evidence for fracture or suspicious osseous enhancement. TENDONS: The rectus femoris tendons, iliopsoas tendons, hamstring tendons, hip adductor and abductor tendons appear to be intact bilaterally. MUSCLE: Mild diffuse fatty infiltration of the gluteus garry bilaterally. NERVES: The visualized portions of the lumbosacral plexus and sciatic nerves appear to be within normal limits. VISCERAL PELVIS: Limited evaluation. Colonic diverticulosis. Trace fat left inguinal ring. LOWER LUMBAR SPINE: Limited evaluation with degenerative changes. OTHER: No other significant abnormality. IMPRESSION: Avascular necrosis involving the bilateral femoral heads as discussed, without evidence for cortical collapse. ELECTRONICALLY SIGNED BY: Hal Art MD Normal Not Available XR Hip - right 3 [facility] Result: AP and lateral of right hip showed femoral head to be well centered in the acetabulum without evidence of fracture or dislocation. There was some spurring at the inferior medial aspect of the femoral acetabular junction. There was global decrease in joint space height. There was no acute bony process including but not limited to, fracture and/or dislocation. Impression mild degenerative joint disease, right hip [facility] XR Hip - right 3 ViewsOrdere d By: Jr. Welch on 08-14-2024 [facility] Work Phone: XR Hip - right 3 [facility] Radiology Study observation (narrative) [facility] Brian 07-25-2024 CNOV Office Visit (RHEUAV ) ALESSANDRA GRAY ([id number]) 1960 F Date Time Provider Department 07/25/24 9:40 AM CHAD LACY FERNANDEZCAIT During your visit today, we recorded the following information about you: Pulse Blood pressure Weight 75/minute 117/77 82.9 kg Chad Lacy MD 07/25/2024 10:13 AM Signed Rheumatology Outpatient Clinic Date of Service: 07/25/2024 Patient: Alessandra Gray Medical Record: [id number] Primary Care Physician: Teto Tillman DO Last Rheumatology visit: 03/19/2024 (with Chad Lacy) History of Present Illness Alessandra Gray is a 64 year old White female who presents on 07/25/2024 for an in-person visit for evaluation of Psoriatic Arthritis. She is currently taking ustekinumab. HISTORY OF PRESENT ILLNESS This patient is well-known to me from my previous practice with [facility] with a history of psoriatic arthritis/seronegativ e rheumatoid arthritis. This patient has been on several different DMARDs and Biologics over the years. She has tried and failed methotrexate, Arava, Humira/Enbrel, Rituxan, Orencia, Actemra in the past. In the past year she has been on Stelara 45 mg dosage titrated to 90 mg dosage where she has achieved an very good clinical response. She was last seen in September 2021 was doing well and was due for her Stelara in November 2021 when she was unable to achieve prior authorization for the Stelara because I was between offices. She currently experiences stiffness and pain in the hands, wrists shoulders, knees, ankles and feet. She has now even had some right rib pain that is been moderately active. Generally she has done well without any new general medical issues from her other doctors. Meds tried/failed in the past: Methotrexate Leflunomide Humira/Enbrel Actemra Orencia Rituxan Xeljanz/Rinvoq INTERVAL HISTORY Patient returns for reevaluation and management of her psoriatic arthritis/rheumatoid arthritis. Since last visit the patient is main Stelara 90 mg subcutaneously once every 12 weeks. She continues to tolerate the Stelara well. Overall her psoriatic arthritis/rheumatoid arthritis has been doing reasonably well. There was a delay in getting the Stelara and she started to flare and utilized a Medrol Dosepak which got her through the rough spot. She has been able to resume the Stelara and has limited joint pain presently. There are no new extra-articular manifestations of her arthritis. She has had ongoing dizziness on and off for the past few years. She also had an episode of chest pain which really was not pursued aggressively by her PCP. Otherwise the remainder of her general health has remained stable. Patient-Entered Data PAIN EVALUATION 07/25/2024 0945 Pain Level: 2 Pain Location: Other: See Comment Level of pain 2 in right hip and lower back PROMIS Assessments RAPID 3 [place] Activities of Daily Living No Data Dress self? - Get in and out of bed? - Walk outdoors? - Wash and dry body? - Get in and out of car? - RAPID 3 Disease Activity Weighed Score Levels: 0 - 1: Near Remission 1.3 - 2.0: Low Severity 2.3 - 4.0: Moderate Severity 4.3 - 10.0: High Severity Review of Systems Review of Systems CONSTITUTION: Negative for: Weight loss or gain, Fever. Chills, Night sweats HEENT: Negative for: Nosebleeds, Mouth sores, Trouble swallowing, Dry mouth RESPIRATORY: Negative for: Cough, Shortness of breath, Pain with breathing, Coughing up blood GASTROINTESTINAL: Negative for: Melena, Diarrhea, Abdominal pain, Heartburn, MUSCULOSKELETAL: Positive for: Arthralgias and Morning Joint Stiffness Negative for: Myalgias, Muscle weakness and Joint swelling NEUROLOGICAL: Negative for: Headaches, Numbness, Memory loss, SKIN: Positive for: Skin changes Negative for: Rash, Sun Sensitive Rash, Hair loss and Nail changes EYES: Negative for: Eye pain, Eye redness, Visual disturbance, Eye dryness CARDIOVASCULAR: Positive for: Chest pain Negative for: Leg swelling GENITOURINARY: Negative for: Dysuria, Hematuria, Ulceration HEMATOLOGIC/LYMPHATIC : Negative for: Swollen glands All other reviewed and negative other than HPI. Past Medical History No past medical history on file. Past Surgical History No past surgical history on file. Family History No family history on file. Social History Social History Tobacco Use Smoking status: Never Smokeless tobacco: Never Current Medications Current Outpatient Medications Medication Sig ustekinumab (STELARA) 90 mg/mL injection INJECT 1 ML UNDER THE SKIN EVERY 3 MONTHS betamethasone dipropionate (DIPROSONE) 0.05 % cream APPLY ONE APPLICATION VIA EXTERNAL ROUTE TO AFFECTED AREA ONCE DAILY carvedilol (COREG) 12.5 mg tablet TAKE ONE TABLET BY MOUTH TWICE A DAY ( IN THE MORNING AND IN THE EVENING ) WITH FOOD HYDROcodone-Acetamino phen (NORCO) 1 (more content not included)... Normal [facility] 07-23-2024 [facility] Telephone ([employer]) ALESSANDRA GRAY ([id number]) 1960 F Date Time Provider Department 07/23/24 CHAD LACY During your visit today, we recorded the following information about you: Eliz Tucker LPN 07/23/2024 3:10 PM Signed Patient has been identified by name and date of : Yes, Provider Dr. Lacy Date 07/23/2024 Time 2:45 pm Type of form: Lab results from [facility] Form received via: Fax When form is completed, contact N/A. Form has been forwarded to: Provider's desk. Provider name: On copy given to Dr. Lacy and one copy sent to bassam Tucker LPN Allergies As of Date: 07/23/2024 Noted Allergy Reaction ASPIRIN 01/27/2021 10 - Anaphylaxis CLARITHROMYCIN 07/04/2019 14 - Other: See Comments Comments: Swelling of lips and tongue BEE POLLEN 01/13/2007 7 - Swelling CECLOR (CEFACLOR) 01/13/2007 7 - Swelling ERYTHROMYCIN 01/27/2021 18 - Angioedema 14 - Other: See Comments Comments: Hives, tongue swelling GOLD SALTS 01/13/2007 7 - Swelling NSAIDS (NON-STEROIDAL ANTI-INFLAM* 7 - Swelling PENICILLINS 01/13/2007 7 - Swelling PINEAPPLE 12/03/2022 10 - Anaphylaxis PRILOSEC (OMEPRAZOLE) 01/13/2007 7 - Swelling SULFA (SULFONAMIDE ANTIBIOTICS) 01/13/2007 7 - Swelling Date Reviewed: 03/19/2024 Reviewed by: Annie Bartholomew RN - Fully Assessed Prescriptions as of 07/23/2024 - ustekinumab (STELARA) 90 mg/mL injection INJECT 1 ML UNDER THE SKIN EVERY 3 MONTHS - betamethasone dipropionate (DIPROSONE) 0.05 % cream APPLY ONE APPLICATION VIA EXTERNAL ROUTE TO AFFECTED AREA ONCE DAILY - carvedilol (COREG) 12.5 mg tablet TAKE ONE TABLET BY MOUTH TWICE A DAY ( IN THE MORNING AND IN THE EVENING ) WITH FOOD - HYDROcodone-Acetamino phen (NORCO) 10-325 mg per tablet Take 1 tablet by mouth twice daily as needed. - morphine SR (MS CONTIN) 30 mg 12 hr tablet TAKE ONE TABLET BY MOUTH EVERY 12 HOURS -FILL ON [id number] - TROKENDI XR 100 mg capsule - TROKENDI XR 200 mg capsule - pravastatin (PRAVACHOL) 40 mg tablet TAKE ONE TABLET BY MOUTH DAILY FOR 90 DAYS - SUMAtriptan (IMITREX) 100 mg tablet Take 100 mg by mouth. - SUMAtriptan (IMITREX) 20 mg/actuation nasal spray Use 1 [place] in the nose every 2 hours as needed. - cyanocobalamin (VITAMIN B-12) 100 mcg tab Take 100 mcg by mouth. - ferrous sulfate 325 mg (65 mg iron) tablet Take 325 mg by mouth. - cholecalciferol (VITAMIN D3) 400 unit tab Take 400 Units by mouth. - duloxetine (CYMBALTA) 60 mg ORAL CpDR Take one(1) tablet daily. - folic acid 1 mg ORAL Tab Take one (1) tablet daily. - metaxalone (SKELAXIN) 800 mg ORAL Tab 1 tab 3 times per day Problem List As Of Date 07/23/2024 Noted Resolved Psoriatic arthritis (HCC) [L40.50] 02/01/2022 Rheumatoid arthritis of multiple sites with neg*02/01/2022 Encounter Status:Closed by ELIZ TUCKER on 07/23/24 Normal [facility] Alanine Aminotransferaseon 1 09-19-2023 ALT [Catalytic activity/Vol] 10 U/L Normal [facility] Comment on above: Result Comment: PERF ORMED BY: [place] [address] PATHOLOGIST CIRCUS AGENT SG GUTIERREZ M.D. Performed By: #### E SR, CREAT, CBC, ALT, AST #### [facility] [address] [place] [address] Alanine aminotransferase [En zymatic activity/volume] in Serum or PlasmaOrdered By: Chad Lacy on 07-20-2024 ALT [Catalytic activity/Vol] Alanine aminotransferase [Enzymatic activity/volume] in Serum or Plasma [facility] Aspartate Amino Transferaseo n 07-20-2024 AST [Catalytic activity/Vol] 16 U/L Normal -39 [facility] Comment on above: Performed By: #### E SR, CREAT, CBC, ALT, AST #### [facility] [address] [place] [address] Aspartate aminotransferase [ Enzymatic activity/volume] in Serum or PlasmaOrdered By: Chad Lacy on 07-20-2024 AST [Catalytic activity/Vol] Aspartate aminotransferase [Enzymatic activity/volume] in Serum or Plasma 13-39 [facility] Basophils Auto (Bld) [#/Vol] Ordered By: Chad Lacy on 07-20-2024 Basophils (Bld) [#/Vol] Automated basoph il count 0.0-0.2 [facility] Basophils/100 WBC Auto (Bld) Ordered By: Chad Lacy on 07-20-2024 Basophils/100 WBC (Bld) Automated basophil % . [facility] Complete Blood Count Auto Di ffon 07-20-2024 Basophils (Bld) [#/Vol] 0.0 10*3/uL Normal 0.0-0.2 [facility] Comment on above: Performed By: #### E SR, CREAT, CBC, ALT, AST #### [address] Basophils/100 WBC (Bld) 0.6 % Normal . [facility] Comment on above: Performed By: #### E SR, CREAT, CBC, ALT, AST #### [address] Eosinophils (Bld) [#/Vol] 0.1 10*3/uL Normal 0.0-0.45 [facility] Comment on above: Performed By: #### E SR, CREAT, CBC, ALT, AST #### [address] Eosinophils/100 WBC (Bld) 4.3 % Normal . [facility] Comment on above: Performed By: #### E SR, CREAT, CBC, ALT, AST #### [address] Erythrocyte distribution width (RBC) [Ratio] 12.8 % Normal 11.9-15.3 [facility] Comment on above: Performed By: #### E SR, CREAT, CBC, ALT, AST #### [address] Hematocrit (Bld) [Volume fraction] 41.5 % Normal 34.0-46.4 [facility] Comment on above: Performed By: #### E SR, CREAT, CBC, ALT, AST #### [address] Hemoglobin (Bld) [Mass/Vol] 13.6 g/dL Normal 11.8-15.4 [facility] Comment on above: Performed By: #### E SR, CREAT, CBC, ALT, AST #### [address] Lymphocytes (Bld) [#/Vol] 1.1 10*3/uL Normal 1.00-4.8 [facility] Comment on above: Performed By: #### E SR, CREAT, CBC, ALT, AST #### [address] Lymphocytes/100 WBC (Bld) 36.7 % Normal . [facility] Comment on above: Performed By: #### E SR, CREAT, CBC, ALT, AST #### [address] MCH (RBC) [Entitic mass] 31.8 pg Normal 24.7-34.3 [facility] Comment on above: Performed By: #### E SR, CREAT, CBC, ALT, AST #### [address] MCV (RBC) [Entitic vol] 97.1 fL Normal 80-100 [facility] Comment on above: Performed By: #### E SR, CREAT, CBC, ALT, AST #### [address] Mean Corpuscular HGB Conc 32.7 g/dL Normal 32.0-35.0 [facility] Comment on above: Performed By: #### E SR, CREAT, CBC, ALT, AST #### [address] Monocytes (Bld) [#/Vol] 0.3 10*3/uL Normal 0.0-0.8 [facility] Comment on above: Performed By: #### E SR, CREAT, CBC, ALT, AST #### [address] Monocytes/100 WBC (Bld) 9.2 % Normal . [facility] Comment on above: Performed By: #### E SR, CREAT, CBC, ALT, AST #### [address] Neutrophils (Bld) [#/Vol] 1.5 10*3/uL Low 1.8-7.7 [facility] Comment on above: Performed By: #### E SR, CREAT, CBC, ALT, AST #### [address] Neutrophils/100 WBC (Bld) 49.2 % Normal . [facility] Comment on above: Performed By: #### E SR, CREAT, CBC, ALT, AST #### [address] NRBC% 0.3 /100{WBC} Normal 0-0.5 [facility] Comment on above: Performed By: #### E SR, CREAT, CBC, ALT, AST #### [address] Platelet mean volume (Bld) [Entitic vol] 7.3 fL Normal 6.3-10.7 [facility] Comment on above: Performed By: #### E SR, CREAT, CBC, ALT, AST #### [address] Platelets (Bld) [#/Vol] 153 10*3/uL Normal 150-450 [facility] Comment on above: Performed By: #### E SR, CREAT, CBC, ALT, AST #### [address] RBC (Bld) [#/Vol] 4.27 10*6/uL Normal 3.60-5.00 [facility] Comment on above: Performed By: #### E SR, CREAT, CBC, ALT, AST #### [address] WBC (Bld) [#/Vol] 3.1 10*3/uL Low 3.8-11.6 [facility] Comment on above: Performed By: #### E SR, CREAT, CBC, ALT, AST #### [address] Creatinineon 07-20-2024 Creatinine [Mass/Vol] 1.10 mg/dL Normal 0.60-1.20 [facility] Comment on above: Performed By: #### E SR, CREAT, CBC, ALT, AST #### [address] GFR/1.73 sq M.predicted MDRD (S/P/Bld) [Vol rate/Area] 56.461 mL/min/{1.73_m2} Normal [facility] Comment on above: Performed By: #### E SR, CREAT, CBC, ALT, AST #### [address] Creatinine [Mass/volume] in Serum or PlasmaOrdered By: Chad Lacy on 07-20-2024 Creatinine [Mass/Vol] Creatinine [Mass/volume] in Serum or Plasma 0.60-1.20 [facility] Eosinophils Auto (Bld) [#/Vo l]Ordered By: Chad Lacy on 07-20-2024 Eosinophils (Bld) [#/Vol] Automated eosinophil count 0.0-0.45 [facility] Eosinophils/100 WBC Auto (Bl d)Ordered By: Chad Lacy on 07-20-2024 Eosinophils/100 WBC (Bld) Automated eosinophil % . [facility] Erythrocyte Sedimentation Ra eladio 07-20-2024 ESR (Bld) [Velocity] 11 mm/h Normal 0-29 [facility] Comment on above: Result Comment: PERF ORMED BY: [place] [address] PATHOLOGIST CIRCUS AGENT SG GUTIERREZ M.D. Performed By: #### E SR, CREAT, CBC, ALT, AST #### [address] Erythrocyte distribution wid th Auto (RBC) [Ratio]Ordered By: Chad Lacy on 07-20-2024 Erythrocyte distribution width (RBC) [Ratio] Erythrocyte distribution width [Ratio] by Automated count 11.9-15.3 [facility] Erythrocyte sedimentation ra te by Photometric methodOrdered By: Chad Lacy on 07-20-2024 ESR Photometric method (Bld) [Velocity] Erythrocyte sedimentation rate by Photometric method 0-29 [facility] Hematocrit Auto (Bld) [Volum e fraction]Ordered By: Chad Lacy on 07-20-2024 Hematocrit (Bld) [Volume fraction] Hematocrit [Volume Fraction] of Blood by Automated count 34.0-46.4 [facility] Hemoglobin [Mass/volume] in BloodOrdered By: Chad Lacy on 07-20-2024 Hemoglobin (Bld) [Mass/Vol] Hemoglobin [Mass/volume] in Blood 11.8-15.4 [facility] Leukocytes [#/volume] correc angel for nucleated erythrocytes in Blood by Automated counOrdered By: Chad Lacy on 07-20-2024 WBC corrected for nucl RBC Auto (Bld) [#/Vol] Leukocytes [#/volume] corrected for nucleated erythrocytes in Blood by Automated coun Low 3.8-11.6 [facility] Lymphocytes Auto (Bld) [#/Vo l]Ordered By: Chad Lacy on 07-20-2024 Lymphocytes (Bld) [#/Vol] Lymphocytes [#/volume] in Blood by Automated count 1.00-4.8 [facility] Lymphocytes/100 WBC Auto (Bl d)Ordered By: Chad Lacy on 07-20-2024 Lymphocytes/100 WBC (Bld) Lymphocytes/100 leukocytes in Blood by Automated count . [facility] MCH Auto (RBC) [Entitic mass ]Ordered By: Chad Lacy on 07-20-2024 MCH (RBC) [Entitic mass] MCH [Entitic mass] by Automated count 24.7-34.3 [facility] MCHC Auto (RBC) [Mass/Vol]Or dered By: Chad Lacy on 07-20-2024 MCHC (RBC) [Mass/Vol] MCHC [Mass/volume] by Automated count 32.0-35.0 [facility] MCV Auto (RBC) [Entitic vol] Ordered By: Chad Lacy on 07-20-2024 MCV (RBC) [Entitic vol] MCV [Entitic vol ume] by Automated count 80-100 [facility] Monocytes Auto (Bld) [#/Vol] Ordered By: Chad Lacy on 07-20-2024 Monocytes (Bld) [#/Vol] Automated blood monocyte count 0.0-0.8 [facility] Monocytes/100 WBC Auto (Bld) Ordered By: Chad Lacy on 07-20-2024 Monocytes/100 WBC (Bld) Automated monocyte % . [facility] Neutrophils Auto (Bld) [#/Vo l]Ordered By: Chad Lacy on 07-20-2024 Neutrophils (Bld) [#/Vol] Neutrophils [#/volume] in Blood by Automated count Low 1.8-7.7 [facility] Neutrophils/100 WBC Auto (Bl d)Ordered By: Chad Lacy on 07-20-2024 Neutrophils/100 WBC (Bld) Automated neutrophil % . [facility] No Panel InformationOrdered By: Chad Lacy on 07-20-2024 Estimated GFR (CKD-EPI) 56.461 mL/Min [facility] Creatinine Clearance (Chem N/A [facility] Nucleated erythrocytes [Pres ence] in Blood by Automated countOrdered By: Chad Lacy on 07-20-2024 Nucleated RBC Auto Ql (Bld) Nucleated erythrocytes [Presence] in Blood by Automated count 0-0.5 [facility] Platelet mean volume Auto (B ld) [Entitic vol]Ordered By: Chad Lacy on 07-20-2024 Platelet mean volume (Bld) [Entitic vol] Platelet mean volume [Entitic volume] in Blood by Automated count 6.3-10.7 [facility] Platelets Auto (Bld) [#/Vol] Ordered By: Chad Lacy on 07-20-2024 Platelets (Bld) [#/Vol] Platelets [#/vol ume] in Blood by Automated count 150-450 [facility] RBC Auto (Bld) [#/Vol]Ordere d By: Chad Lacy on 07-20-2024 RBC (Bld) [#/Vol] Erythrocytes [#/volume] in Blood by Automated count 3.60-5.00 [facility] WBC Auto (Bld) [#/Vol]Ordere d By: Chad Lacy on 07-20-2024 WBC (Bld) [#/Vol] Leukocytes [#/volume ] in Blood by Automated count Low 3.8-11.6 [facility] Alanine aminotransferase [En zymatic activity/volume] in Serum or PlasmaOrdered By: Teto Tillman on 03-09-2024 ALT [Catalytic activity/Vol] 7 U/L 7-52 [facility] Albumin [Mass/volume] in Ser um or Plasma by Bromocresol green (BCG) dye binding methoOrdered By: Teto Tillman on 03-09-2024 Albumin BCG dye [Mass/Vol] 3.7 g/dL 3.5-5.7 [facility] Alkaline phosphatase [Enzyma tic activity/volume] in Serum or PlasmaOrdered By: Teto Tillman on 03-09-2024 ALP [Catalytic activity/Vol] 57 U/L 34-104 [facility] Aspartate aminotransferase [ Enzymatic activity/volume] in Serum or PlasmaOrdered By: Teto Tillman on 03-09-2024 AST [Catalytic activity/Vol] 15 U/L 13-39 [facility] Basophils Auto (Bld) [#/Vol] Ordered By: Chad Lacy on 03-09-2024 Basophils (Bld) [#/Vol] 0.0 10*3/uL 0.0-0.2 [facility] Basophils/100 WBC Auto (Bld) Ordered By: Chad Lacy on 03-09-2024 Basophils/100 WBC (Bld) 0.8 % . [facility] Bilirubin.total [Mass/volume ] in Serum or PlasmaOrdered By: Teto Tillman on 03-09-2024 Bilirubin [Mass/Vol] 0.3 mg/dL 0.3-1.0 [facility] Calcium [Mass/volume] in Ser um or PlasmaOrdered By: Teto Tillman on 03-09-2024 Calcium [Mass/Vol] 8.7 mg/dL 8.6-10.3 [facility] Carbon dioxide, total [Moles /volume] in Serum or PlasmaOrdered By: Teto Tillman on 03-09-2024 CO2 [Moles/Vol] 30.2 mmol/L 21.0-31.0 [facility] Chloride [Moles/volume] in S crystal or PlasmaOrdered By: Teto Tillman on 03-09-2024 Chloride [Moles/Vol] 111 mmol/L High 98-107 [facility] Cholesterol [Mass/volume] in Serum or PlasmaOrdered By: Teto Tillman on 03-09-2024 Cholesterol [Mass/Vol] 182 mg/dL 140-200 [facility] Comment on above: Chol less than 200 m g/dl low riskChol 201-239 mg/dl borderline riskChol 240 mg/dl and greater high risk Cholesterol in LDL Calc [Mas s/Vol]Ordered By: Teto Tillman on 03-09-2024 Cholesterol in LDL [Mass/Vol] 93 mg/dL 0-100 [facility] Comment on above: LDL ATP III CLASSIFI CATIONLDL less than 100 mg/dL OptimalLDL 100-129 mg/dL Near or above optimalLDL 130-159 mg/dL Borderline highLDL 160-189 mg/dL HighLDL greater than 189 mg/dL Very high Cholesterol in VLDL Calc [Ma ss/Vol]Ordered By: Teto Tillman on 03-09-2024 Cholesterol in VLDL [Mass/Vol] 22 mg/dL [facility] Creatinine [Mass/volume] in Serum or PlasmaOrdered By: Teto Tillman on 03-09-2024 Creatinine [Mass/Vol] 1.01 mg/dL 0.60-1.20 [facility] Eosinophils Auto (Bld) [#/Vo l]Ordered By: Chad Lacy on 03-09-2024 Eosinophils (Bld) [#/Vol] 0.2 10*3/uL 0.0-0.45 [facility] Eosinophils/100 WBC Auto (Bl d)Ordered By: Chad Lacy on 03-09-2024 Eosinophils/100 WBC (Bld) 4.5 % . [facility] Erythrocyte distribution wid th Auto (RBC) [Ratio]Ordered By: Chad Lacy on 03-09-2024 Erythrocyte distribution width (RBC) [Ratio] 13.5 % 11.9-15.3 [facility] Erythrocyte sedimentation ra te by Photometric methodOrdered By: Chad Lacy on 03-09-2024 ESR Photometric method (Bld) [Velocity] 16 mm/hr 0-29 [facility] Globulin Calc (S) [Mass/Vol] Ordered By: Teto Tillman on 03-09-2024 Globulin (S) [Mass/Vol] 2.2 g/dL [facility] Glucose [Mass/volume] in Ser um or PlasmaOrdered By: Teto Tillman on 03-09-2024 Glucose [Mass/Vol] 93 mg/dL 70-100 [facility] Comment on above: ADA recommended refe rence rangeRandom Glucose Reference Range is dependent on time and content of last meal. Glucose of more than 200 mg/dL in a nonstressed, ambulatory subject supports the diagnosis of Diabetes Mellitus. Hematocrit Auto (Bld) [Volum e fraction]Ordered By: Chad Lacy on 03-09-2024 Hematocrit (Bld) [Volume fraction] 39.9 % 34.0-46.4 [facility] Hemoglobin [Mass/volume] in BloodOrdered By: Chda Lacy on 03-09-2024 Hemoglobin (Bld) [Mass/Vol] 13.2 g/dL 11.8-15.4 [facility] Leukocytes [#/volume] correc angel for nucleated erythrocytes in Blood by Automated counOrdered By: Chad Lacy on 03-09-2024 WBC corrected for nucl RBC Auto (Bld) [#/Vol] 3.3 10*3/uL Low 3.8-11.6 [facility] Lymphocytes Auto (Bld) [#/Vo l]Ordered By: Chad Lacy on 03-09-2024 Lymphocytes (Bld) [#/Vol] 1.3 10*3/uL 1.00-4.8 [facility] Lymphocytes/100 WBC Auto (Bl d)Ordered By: Chad Lacy on 03-09-2024 Lymphocytes/100 WBC (Bld) 37.8 % . [facility] MCH Auto (RBC) [Entitic mass ]Ordered By: Chad Lacy on 03-09-2024 MCH (RBC) [Entitic mass] 32.6 pg 24.7-34.3 [facility] MCHC Auto (RBC) [Mass/Vol]Or dered By: Chad Lacy on 03-09-2024 MCHC (RBC) [Mass/Vol] 33.0 g/dL 32.0-35.0 [facility] MCV Auto (RBC) [Entitic vol] Ordered By: Chad Lacy on 03-09-2024 MCV (RBC) [Entitic vol] 98.9 fL 80-100 [facility] Monocytes Auto (Bld) [#/Vol] Ordered By: Chad Lacy on 03-09-2024 Monocytes (Bld) [#/Vol] 0.3 10*3/uL 0.0-0.8 [facility] Monocytes/100 WBC Auto (Bld) Ordered By: Chad Lacy on 03-09-2024 Monocytes/100 WBC (Bld) 9.6 % . [facility] Neutrophils Auto (Bld) [#/Vo l]Ordered By: Chad Lacy on 03-09-2024 Neutrophils (Bld) [#/Vol] 1.6 10*3/uL Low 1.8-7.7 [facility] Neutrophils/100 WBC Auto (Bl d)Ordered By: Chad Lacy on 03-09-2024 Neutrophils/100 WBC (Bld) 47.3 % . [facility] No Panel InformationOrdered By: Teto Tillman on 03-09-2024 Estimated GFR (CKD-EPI) > 60.0 mL/Min [facility] Creatinine Clearance (Chem N/A [facility] Nucleated erythrocytes [Pres ence] in Blood by Automated countOrdered By: Chad Lacy on 03-09-2024 Nucleated RBC Auto Ql (Bld) 0.1 /100{WBC} 0-0.5 [facility] Platelet mean volume Auto (B ld) [Entitic vol]Ordered By: Chad Lacy on 03-09-2024 Platelet mean volume (Bld) [Entitic vol] 7.0 fL 6.3-10.7 [facility] Platelets Auto (Bld) [#/Vol] Ordered By: Chad Lacy on 03-09-2024 Platelets (Bld) [#/Vol] 154 10*3/uL 150-450 [facility] Potassium [Moles/volume] in Serum or PlasmaOrdered By: Teto Tillman on 03-09-2024 Potassium [Moles/Vol] 4.2 mmol/L 3.5-5.1 [facility] Protein [Mass/volume] in Ser um or PlasmaOrdered By: Teto Tillman on 03-09-2024 Protein [Mass/Vol] 5.9 g/dL Low 6.4-8.9 [facility] RBC Auto (Bld) [#/Vol]Ordere d By: Chad Lacy on 03-09-2024 RBC (Bld) [#/Vol] 4.04 10*6/uL 3.60-5.00 [facility] Serum or plasma albumin/glob ulin mass ratioOrdered By: Teto Tillman on 03-09-2024 Albumin/Globulin [Mass ratio] 1.7 {ratio} [facility] Serum or plasma anion gap de terminationOrdered By: Teto Tillman on 03-09-2024 Anion gap [Moles/Vol] 5.0 mmol/L Low 6.0-15.0 [facility] Serum or plasma high density lipoprotein (HDL) cholesterol measurementOrdered By: Teto Tillman on 03-09-2024 Cholesterol in HDL [Mass/Vol] 67 mg/dL 23- [facility] Comment on above: HDL CHOL ATP-III CLA SSIFICATION Cardiovascular RiskHDL > or equal to 60 mg/dL LOWHDL < 40 mg/dL HIGH Serum or plasma total choles terol/high density lipoprotein (HDL) cholesterol mass ratOrdered By: Teto Tillman on 03-09-2024 Cholesterol.total/Carmen sterol in HDL [Mass ratio] 2.7 {ratio} <5.0 [facility] Sodium [Moles/volume] in Ser um or PlasmaOrdered By: Teto Tillman on 03-09-2024 Sodium [Moles/Vol] 142 mmol/L 136-145 [facility] Triglyceride [Mass/volume] i n Serum or PlasmaOrdered By: Teto Tillman on 03-09-2024 Triglyceride [Mass/Vol] 111 mg/dL 0-149 [facility] Comment on above: TRIG ATP III CLASSIF ICATIONTRIG less than 150 mg/dL NormalTRIG 150-199 mg/dL Borderline highTRIG 200-500 mg/dL High TRIG greater than 500 mg/dL Very highStandard traceable to the Center for Disease Conrtrol and Prevention (CDC) test method. Urea nitrogen [Mass/volume] in Serum or PlasmaOrdered By: Teto Tillman on 03-09-2024 Urea nitrogen [Mass/Vol] 14 mg/dL 7 [facility] WBC Auto (Bld) [#/Vol]Ordere d By: Chad Lacy on 03-09-2024 WBC (Bld) [#/Vol] 3.3 10*3/uL Low 3.8-11.6 [facility] Alanine aminotransferase [En zymatic activity/volume] in Serum or PlasmaOrdered By: Chda Lacy on 07-11-2023 ALT [Catalytic activity/Vol] 12 U/L 7-52 [facility] Aspartate aminotransferase [ Enzymatic activity/volume] in Serum or PlasmaOrdered By: Chad Lacy on 07-11-2023 AST [Catalytic activity/Vol] 18 U/L 13-39 [facility] Basophils Auto (Bld) [#/Vol] Ordered By: Chad Lacy on 07-11-2023 Basophils (Bld) [#/Vol] 0.0 10*3/uL 0.0-0.2 [facility] Basophils/100 WBC Auto (Bld) Ordered By: Chad Lacy on 07-11-2023 Basophils/100 WBC (Bld) 0.4 % . [facility] Creatinine [Mass/volume] in Serum or PlasmaOrdered By: Chad Lacy on 07-11-2023 Creatinine [Mass/Vol] 1.05 mg/dL 0.60-1.20 [facility] Eosinophils Auto (Bld) [#/Vo l]Ordered By: Chad Lacy on 07-11-2023 Eosinophils (Bld) [#/Vol] 0.1 10*3/uL 0.0-0.45 [facility] Eosinophils/100 WBC Auto (Bl d)Ordered By: Chad Lacy on 07-11-2023 Eosinophils/100 WBC (Bld) 2.5 % . [facility] Erythrocyte distribution wid th Auto (RBC) [Ratio]Ordered By: Chad Lacy on 07-11-2023 Erythrocyte distribution width (RBC) [Ratio] 13.0 % 11.9-15.3 [facility] Erythrocyte sedimentation ra te by Photometric methodOrdered By: Chad Lacy on 07-11-2023 ESR Photometric method (Bld) [Velocity] 16 mm/hr 0-29 [facility] Hematocrit Auto (Bld) [Volum e fraction]Ordered By: Chad Lacy on 07-11-2023 Hematocrit (Bld) [Volume fraction] 41.5 % 34.0-46.4 [facility] Hemoglobin [Mass/volume] in BloodOrdered By: Chad Lacy on 07-11-2023 Hemoglobin (Bld) [Mass/Vol] 13.7 g/dL 11.8-15.4 [facility] Leukocytes [#/volume] correc agnel for nucleated erythrocytes in Blood by Automated counOrdered By: Chad Lacy on 07-11-2023 WBC corrected for nucl RBC Auto (Bld) [#/Vol] 3.7 10*3/uL 3.8-11.6 [facility] Lymphocytes Auto (Bld) [#/Vo l]Ordered By: Chad Lacy on 07-11-2023 Lymphocytes (Bld) [#/Vol] 1.1 10*3/uL 1.00-4.8 [facility] Lymphocytes/100 WBC Auto (Bl d)Ordered By: Chad Lacy on 07-11-2023 Lymphocytes/100 WBC (Bld) 30.9 % . [facility] MCH Auto (RBC) [Entitic mass ]Ordered By: Chad Lacy on 07-11-2023 MCH (RBC) [Entitic mass] 32.2 pg 24.7-34.3 [facility] MCHC Auto (RBC) [Mass/Vol]Or dered By: Chad Lacy on 07-11-2023 MCHC (RBC) [Mass/Vol] 33.0 g/dL 32.0-35.0 [facility] MCV Auto (RBC) [Entitic vol] Ordered By: Chad Layc on 07-11-2023 MCV (RBC) [Entitic vol] 97.4 fL 80-100 [facility] Monocytes Auto (Bld) [#/Vol] Ordered By: Chad Lacy on 07-11-2023 Monocytes (Bld) [#/Vol] 0.3 10*3/uL 0.0-0.8 [facility] Monocytes/100 WBC Auto (Bld) Ordered By: Chad Lacy on 07-11-2023 Monocytes/100 WBC (Bld) 7.7 % . [facility] Neutrophils Auto (Bld) [#/Vo l]Ordered By: Chad Lacy on 07-11-2023 Neutrophils (Bld) [#/Vol] 2.2 10*3/uL 1.8-7.7 [facility] Neutrophils/100 WBC Auto (Bl d)Ordered By: Chad Lacy on 07-11-2023 Neutrophils/100 WBC (Bld) 58.5 % . [facility] No Panel InformationOrdered By: Chad Lacy on 07-11-2023 Estimated GFR (CKD-EPI) > 60.0 mL/Min [facility] Creatinine Clearance (Chem N/A [facility] Nucleated erythrocytes [Pres ence] in Blood by Automated countOrdered By: Chad Lacy on 07-11-2023 Nucleated RBC Auto Ql (Bld) 0.1 /100{WBC} 0-0.5 [facility] Platelet mean volume Auto (B ld) [Entitic vol]Ordered By: Chad Lacy on 07-11-2023 Platelet mean volume (Bld) [Entitic vol] 6.5 fL 6.3-10.7 [facility] Platelets Auto (Bld) [#/Vol] Ordered By: Chad Lacy on 07-11-2023 Platelets (Bld) [#/Vol] 151 10*3/uL 150-450 [facility] RBC Auto (Bld) [#/Vol]Ordere d By: Chad Lacy on 07-11-2023 RBC (Bld) [#/Vol] 4.26 10*6/uL 3.60-5.00 [facility] WBC Auto (Bld) [#/Vol]Ordere d By: Chad Lacy on 07-11-2023 WBC (Bld) [#/Vol] 3.7 10*3/uL 3.8-11.6 [facility] Urinalysis - AUTOMATEDon Appearance (U) clear [employer] Other Bilirubin Ql (U) NEGAGTIVE [employer] Other Color (U) yellow [employer] Other Glucose Ql (U) Negative [employer] Other Hemoglobin Ql (U) Negative [employer] Other Ketones Ql (U) Negative [employer] Other Leukocyte esterase Test strip Ql (U) SMALL [employer] Other Nitrite Ql (U) Negative [employer] Other pH (U) 5.5 [pH] [employer] Other Protein Ql (U) Negative [employer] Other Specific gravity (U) [Rel density] 1.025 [employer] Other Urobilinogen (U) [Mass/Vol] 0.2 mg/dL [employer] Other Urinalysis - AUTOMATED No rt [employer] Other Patient Letter FTMCon 2020 Patient Letter FT August 25, 2021 ALESSANDRA GRAY [address] [place] [phone] ALESSANDRA GRAY 1960 Dear Alessandra, This is a SECOND ATTEMPT to remind you that you are due for an appointment with [facility]. Please contact our office at [phone] to schedule an appointment at your earliest convenience. Thank you, [facility] Reminderson 08-25-2021 Reminders - From: Mary Gant To: [facility] - Reminders/Recalls; Sent: 05/13/2021 13:50:23 EDT Show up: 07/13/2021 13:50:00 EDT Subject: Ambulatory Reminder Due Date/Time: 09/07/2021 13:50:00 EST Reminder/Recall 5 year colon 09/07/2021 salam first recall letter second recall letter Normal [facility] Patient Letter FTMCon 2020 Patient Letter FT July 15, 2021 ALESSANDRA GRAY [address] [place] [phone] ALESSANDRA GRAY 1960 Dear Alessandra, This is a reminder that you are due for an appointment with [facility]. Please contact our office at [phone] to schedule an appointment at your earliest convenience. Thank you, [facility] Vital Signs Date Time Vital Sign Value Performing Clinician Facility 04-04-2025 09:15-0400 Diastolic blood pressure 76 mm[Hg] Teto Tillman DO Work Phone: [facility] 04-04-2025 09:15-0400 Heart rate 76 /min Teto Tillman DO Work Phone: [facility] 04-04-2025 09:15-0400 Respiratory rate 18 /min Teto Tillman DO Work Phone: [facility] 04-04-2025 09:15-0400 SaO2% (BldA) [Mass fraction] 98 % Teto Tillman DO Work Phone: [facility] 04-04-2025 09:15-0400 Systolic blood pressure 111 mm[Hg] Teto Tillman DO Work Phone: [facility] 04-04-2025 07:18-0400 Body height 165.1 cm Teto Tillman DO Work Phone: [facility] 04-04-2025 07:18-0400 Body weight 75.29 kg Teto Tillman DO Work Phone: [facility] 03-14-2025 09:03-0400 Body mass index (BMI) [Ratio] 28.47 kg/m2 Chad Lacy MD Work Phone: [facility] 03-14-2025 09:03-0400 Body weight 77.6 kg Chad Lacy MD Work Phone: [facility] 03-14-2025 09:03-0400 Diastolic blood pressure 78 mm[Hg] Chad Lacy MD Work Phone: [facility] 03-14-2025 09:03-0400 Heart rate 73 /min Chad Lacy MD Work Phone: [facility] 03-14-2025 09:03-0400 Systolic blood pressure 112 mm[Hg] Chad Lacy MD Work Phone: [facility] 11-22-2024 09:26-0400 Body mass index (BMI) [Ratio] 28.46 kg/m2 Chad Lacy MD Work Phone: [facility] 11-22-2024 09:26-0400 Body weight 77.56 kg Chad aLcy MD Work Phone: [facility] 11-22-2024 09:26-0400 Diastolic blood pressure 78 mm[Hg] Chad Lacy MD Work Phone: [facility] 11-22-2024 09:26-0400 Heart rate 81 /min Chad Lacy MD Work Phone: [facility] 11-22-2024 09:26-0400 Respiratory rate 16 /min Chad Lacy MD Work Phone: [facility] 11-22-2024 09:26-0400 Systolic blood pressure 112 mm[Hg] Chad Lacy MD Work Phone: [facility] 07-25-2024 09:50-0500 Body mass index (BMI) [Ratio] 30.41 kg/m2 Chad Lacy MD Work Phone: [facility] 07-25-2024 09:50-0500 Body weight 82.9 kg Chad Lacy MD Work Phone: [facility] 07-25-2024 09:50-0500 Diastolic blood pressure 77 mm[Hg] Chad Lacy MD Work Phone: [facility] 07-25-2024 09:50-0500 Heart rate 75 /min Chad Lacy MD Work Phone: [facility] 07-25-2024 09:50-0500 Systolic blood pressure 117 mm[Hg] Chad Lacy MD Work Phone: [facility] 04-16-2024 15:14-0400 Diastolic blood pressure 80 mm[Hg] DO Teto Tillman Work Phone: [facility] 04-16-2024 15:14-0400 Heart rate 65 /min DO Teto Tillman Work Phone: [facility] 04-16-2024 15:14-0400 Respiratory rate 18 /min DO Teto Tillman Work Phone: [facility] 04-16-2024 15:14-0400 Systolic blood pressure 110 mm[Hg] DO Teto Tillman Work Phone: [facility] 04-16-2024 14:57-0400 Body height 163.19 cm DO Teto Tillman Work Phone: [facility] 04-16-2024 14:57-0400 Body mass index (BMI) [Ratio] 31.6 kg/m2 DO Teto Tillman Work Phone: [facility] 04-16-2024 14:57-0400 Body weight 84.36 kg DO Teto Tillman Work Phone: [facility] 03-19-2024 09:32-0400 Body mass index (BMI) [Ratio] 31.1 kg/m2 Chad Lacy MD Work Phone: [facility] 03-19-2024 09:32-0400 Body weight 84.78 kg Chad Lacy MD Work Phone: [facility] 03-19-2024 09:32-0400 Diastolic blood pressure 75 mm[Hg] Chad Lacy MD Work Phone: [facility] 03-19-2024 09:32-0400 Heart rate 75 /min Chad Lacy MD Work Phone: [facility] 03-19-2024 09:32-0400 Systolic blood pressure 113 mm[Hg] Chad Lacy MD Work Phone: [facility] 11-14-2023 09:44-0500 Body weight 84.82 kg Chad Lacy MD Work Phone: [facility] 11-14-2023 09:44-0500 Diastolic blood pressure 79 mm[Hg] Chad Lacy MD Work Phone: [facility] 11-14-2023 09:44-0500 Heart rate 89 /min Chad Lacy MD Work Phone: [facility] 11-14-2023 09:44-0500 Respiratory rate 20 /min Chad Lacy MD Work Phone: [facility] 11-14-2023 09:44-0500 Systolic blood pressure 133 mm[Hg] Chad Lacy MD Work Phone: [facility] 08-25-2023 10:00-0500 Body height 163.19 cm Teto Tillman Other [employer] Other 08-25-2023 10:00-0500 Body mass index (BMI) [Ratio] 31.51 kg/m2 Teto Tillman Other [employer] Other 08-25-2023 10:00-0500 Body weight 83.92 kg Teto Tillman Other [employer] Other 08-25-2023 10:00-0500 Diastolic blood pressure 78 mm[Hg] Teto Tillman Other [employer] Other 08-25-2023 10:00-0500 Respiratory rate 16 /min Teto Tillman Other [employer] Other 08-25-2023 10:00-0500 SaO2% (BldA) [Mass fraction] 97 % Teto Tillman Other [employer] Other 08-25-2023 10:00-0500 Systolic blood pressure 130 mm[Hg] Teto Tillman Other [employer] Other 05-04-2023 16:15-0400 Body height 163.19 cm Teto Tillman Other [employer] Other 05-04-2023 16:15-0400 Body mass index (BMI) [Ratio] 31.33 kg/m2 Teto Tillman Other [employer] Other 05-04-2023 16:15-0400 Body weight 83.46 kg Teto Tillman Other [employer] Other 05-04-2023 16:15-0400 Diastolic blood pressure 80 mm[Hg] Teto Tillman Other [employer] Other 05-04-2023 16:15-0400 Respiratory rate 16 /min Teto Tillman Other [employer] Other 05-04-2023 16:15-0400 SaO2% (BldA) [Mass fraction] 97 % Teto Tillman Other [employer] Other 05-04-2023 16:15-0400 Systolic blood pressure 110 mm[Hg] Teto Tillman Other [employer] Other 02-01-2022 09:48-0400 Body height 165.1 cm Chad Lacy MD Work Phone: [facility] 02-01-2022 09:48-0400 Body temperature 97.7 [degF] Chad Lacy MD Work Phone: [facility] 02-01-2022 09:48-0400 Body weight 83.46 kg Chad Lacy MD Work Phone: [facility] 02-01-2022 09:48-0400 Diastolic blood pressure 65 mm[Hg] Chad Lacy MD Work Phone: [facility] 02-01-2022 09:48-0400 Heart rate 74 /min Chad Lacy MD Work Phone: [facility] 02-01-2022 09:48-0400 Systolic blood pressure 116 mm[Hg] Chad Lacy MD Work Phone: [facility] 11-23-2021 11:30-0400 Body height 163.19 cm Teto Tillman Other [employer] Other 11-23-2021 11:30-0400 Body mass index (BMI) [Ratio] 31.3 kg/m2 Teto Tillman Other [employer] Other 11-23-2021 11:30-0400 Body weight 83.37 kg Teto Tillman Other [employer] Other 11-23-2021 11:30-0400 Diastolic blood pressure 80 mm[Hg] Teto Tillman Other [employer] Other 11-23-2021 11:30-0400 Respiratory rate 16 /min Teto Tillman Other [employer] Other 11-23-2021 11:30-0400 SaO2% (BldA) [Mass fraction] 98 % Teto Tillman Other [employer] Other 11-23-2021 11:30-0400 Systolic blood pressure 120 mm[Hg] Teto Tillman Other [employer] Other 08-19-2021 11:00-0500 Body height 163.19 cm Teto Tillman Other [employer] Other 08-19-2021 11:00-0500 Body mass index (BMI) [Ratio] 30.65 kg/m2 Teto Tillman Other [employer] Other 08-19-2021 11:00-0500 Body temperature 97.3 [degF] Teto Tillman Other [employer] Other 08-19-2021 11:00-0500 Body weight 81.65 kg Teto Tillman Other [employer] Other 08-19-2021 11:00-0500 Diastolic blood pressure 72 mm[Hg] Teto Tillman Other [employer] Other 08-19-2021 11:00-0500 Respiratory rate 16 /min Teto Tillman Other [employer] Other 08-19-2021 11:00-0500 SaO2% (BldA) [Mass fraction] 97 % Teto Tillman Other [employer] Other 08-19-2021 11:00-0500 Systolic blood pressure 136 mm[Hg] Teto Tillman Other [employer] Other 07-08-2021 15:00-0400 Body height 163.19 cm Teto Tillman Other [employer] Other 07-08-2021 15:00-0400 Body mass index (BMI) [Ratio] 31.85 kg/m2 Teto Tillman Other [employer] Other 07-08-2021 15:00-0400 Body temperature 96.9 [degF] Teto Tillman Other [employer] Other 07-08-2021 15:00-0400 Body weight 84.82 kg Teto Tillman Other [employer] Other 07-08-2021 15:00-0400 Diastolic blood pressure 69 mm[Hg] Teto Tillman Other [employer] Other 07-08-2021 15:00-0400 Respiratory rate 16 /min Teto Juárezmer Other [employer] Other 07-08-2021 15:00-0400 SaO2% (BldA) [Mass fraction] 95 % Teto Tillman Other [employer] Other 07-08-2021 15:00-0400 Systolic blood pressure 96 mm[Hg] Teto Cal Other [employer] Other Encounters Encounter Date Encounter Type Care Provider Facility Start: 05-28-2025 End: 05-28-2025 Telephone encounter Chad Lacy MD Work Phone: Rheumatology Comment on above: Insurance Authorizat ion (Ustekinumab-ttwe 90MG/ML syringes) Start: 04-04-2025 End: 04-04-2025 ambulatory Sahara L Ly Facility:[facility] Start: 04-04-2025 Non-patient / Non-visit Sahara L Ly -[facility] Work Phone: Start: 03-27-2025 End: 03-27-2025 ambulatory Tito Coon RNhead housekeeper [facility] Start: 03-25-2025 End: 03-27-2025 ambulatory Darin Landeros MD Work Phone: Orthopaedics Start: 03-18-2025 End: 03-18-2025 Telephone encounter Chad Lacy MD Work Phone: Rheumatology Comment on above: Medication Problem Start: 03-14-2025 End: 03-14-2025 Patient encounter procedure Chad Lacy MD Work Phone: Rheumatology Comment on above: Psoriatic arthritis (HCC) (Primary Dx); Rheumatoid arthritis of multiple sites with negative rheumatoid factor (HCC); Long-term current use of ustekinumab; High risk medication use; Chronic pain of both knees Avascular necrosis o f bone of right hip (HCC) (Primary Dx); Asymptomatic postmenopausal status; Inflammatory polyarthropathy (HCC); Disorder of bone and cartilage; Anemia, unspecified type Start: 03-14-2025 End: 03-14-2025 ambulatory PADMINI WELCH Facility:[facility] Start: 03-14-2025 End: 03-14-2025 Subsequent hospital visit by physician Дмитрий Ortho [facility]j Work Phone: Radiology Comment on above: Primary osteoarthrit is of right hip [M16.11] Start: 03-07-2025 End: 03-11-2025 Orders Only Azalea Izquierdo PA-C Work Phone: Orthopaedics Comment on above: Primary osteoarthrit is of right hip (Primary Dx); Primary osteoarthritis of left hip Start: 03-06-2025 End: 03-06-2025 Telephone encounter Chad Lacy MD Work Phone: Rheumatology Comment on above: Results (Lab ) Start: 01-02-2025 End: 01-02-2025 Patient encounter procedure Teto Tillman DO Work Phone: [facility] [address] Work Phone: Start: 01-02-2025 End: 01-02-2025 ambulatory Teto Tillman DO Work Phone: [facility] Work Phone: Start: 12-13-2024 Non-patient / Non-visit Rojas Tillman DO Work Phone[facility] Work Phone: Start: 11-23-2024 End: 11-23-2024 Telephone encounter Chad Lacy MD Work Phone: Rheumatology Comment on above: Results (Labs) Start: 11-22-2024 End: 11-22-2024 ambulatory TETO TILLMAN Facility:[facility] Start: 11-22-2024 End: 11-22-2024 Patient encounter procedure Chad Lacy MD Work Phone: Rheumatology Comment on above: Psoriatic arthritis (HCC) (Primary Dx); Rheumatoid arthritis of multiple sites with negative rheumatoid factor (HCC); High risk medication use; Chronic pain of both knees Start: 10-15-2024 End: 10-15-2024 Refill Chad Lacy MD Work Phone: Rheumatology Comment on above: Refill Request Start: 09-26-2024 End: 09-26-2024 Bamboo flowsheet Jr. Padmini Welch DO Work Phone: [facility] Start: 09-26-2024 End: 09-26-2024 Bamboo flowsheet Jr. Padmini Westbrook Steproel DO Work Phone: [facility] Start: 09-26-2024 End: 09-26-2024 Office outpatient visit 25 minutes Jr. Padmini Welch DO Work Phone: [facility] Comment on above: Avascular necrosis o f bone of right hip (CMS/HCC) (Primary Dx); Avascular necrosis of bone of left hip (CMS/HCC); Right hip pain; Left hip pain Start: 09-26-2024 End: 09-26-2024 ambulatory PADMINI MARTINEZ Not Available Start: 08-31-2024 End: 08-31-2024 ambulatory ELOISA VANEGAS Not Available Start: 08-21-2024 End: 08-27-2024 Telephone encounter Eloisa Vanegas CHIEF OF PARTY Work Phone: [facility] Comment on above: MRI Start: 08-13-2024 End: 08-13-2024 Bamboo flowsheet Eloisa Vanegas CHIEF OF PARTY Work Phone: [facility] Start: 08-13-2024 End: 08-13-2024 Bamboo flowsheet Eloisa Vanegas CHIEF OF PARTY Work Phone: [facility] Start: 08-13-2024 End: 08-13-2024 Office outpatient visit 15 minutes Eloisa Vanegas CHIEF OF PARTY Work Phone: [facility] Comment on above: Right hip pain (Prim chantal Dx); Avascular necrosis of bone of right hip (CMS/HCC) Start: 08-13-2024 End: 08-13-2024 ambulatory ELOISA VANEGSA Not Available Start: 07-25-2024 End: 07-25-2024 E-mail encounter from caregiver Chad Lacy MD Work Phone: Rheumatology Start: 07-25-2024 End: 07-25-2024 ambulatory TETO TILLMAN Facility:[facility] Start: 07-25-2024 End: 07-25-2024 Patient encounter procedure Chad Lacy MD Work Phone: Rheumatology Comment on above: Psoriatic arthritis (HCC) (Primary Dx); Rheumatoid arthritis of multiple sites with negative rheumatoid factor (HCC); High risk medication use; Leukopenia, unspecified type Start: 07-23-2024 End: 07-23-2024 Telephone encounter Chad Lacy MD Work Phone: Rheumatology Start: 07-20-2024 End: 07-20-2024 Patient encounter procedure Teto Tillman DO Work Phone: [facility] Start: 07-20-2024 End: 07-20-2024 ambulatory Teto Tillman DO Work Phone: [facility] Work Phone: Start: 04-16-2024 End: 04-16-2024 ambulatory DO Teto Tillman Work Phone: [facility] Work Phone: Start: 04-16-2024 End: 04-16-2024 Patient encounter procedure DO Teto Tillman Work Phone: [facility] Work Phone: Start: 03-19-2024 End: 03-19-2024 Patient encounter procedure Chad Lacy MD Work Phone: Rheumatology Comment on above: Psoriatic arthritis (HCC) (Primary Dx); Rheumatoid arthritis of multiple sites with negative rheumatoid factor (HCC); High risk medication use Start: 03-16-2024 Telephone encounter Chad almaguer MD Work Phone: Rheumatology Comment on above: Insurance Authorizat ion ([place]) Start: 03-12-2024 Telephone encounter Chad almaguer MD Work Phone: Rheumatology Start: 03-09-2024 End: 03-09-2024 Patient encounter procedure DO Teto Tillman Work Phone: [facility] Start: 11-14-2023 Telephone encounter Chad almaguer MD Work Phone: Rheumatology Comment on above: Results Start: 11-14-2023 End: 11-14-2023 Patient encounter procedure Chad Lacy MD Work Phone: Rheumatology Comment on above: Rheumatoid arthritis of multiple sites with negative rheumatoid factor (HCC) (Primary Dx); Psoriatic arthritis (HCC); High risk medication use; Avascular necrosis of bone of left hip (HCC) Start: 08-25-2023 End: 08-25-2023 ambulatory Teto Tillman Other [employer] Other Start: 08-25-2023 Encounter for genera l adult medical examination without abnormal findings Teto Tillman [facility] Start: 08-25-2023 Periodic preventive med est patient 40-64yrs Teto Tillman [facility] Start: 08-11-2023 Telephone encounter Chad almaguer MD Work Phone: Rheumatology Comment on above: Results Start: 08-10-2023 End: 08-10-2023 ambulatory DO Teto Tillman Work Phone: [facility] Work Phone: Start: 08-10-2023 End: 08-10-2023 Patient encounter procedure DO Teto Tillman Work Phone: [facility] [address] Work Phone: Start: 07-11-2023 Telephone encounter Chad almaguer MD Work Phone: Rheumatology Comment on above: Results Start: 07-11-2023 End: 07-11-2023 Patient encounter procedure DO Teto Tillman Work Phone: [facility] Start: 07-04-2023 End: 07-04-2023 ambulatory Chanell Armstrong Other [employer] Other Start: 07-04-2023 Office outpatient vi sit 10 minutes Chanell Armstrong [facility] Start: 05-04-2023 End: 05-04-2023 ambulatory Teto Cal Other [employer] Other Start: 05-04-2023 Office outpatient vi sit 15 minutes Teto Tillman [facility] Start: 12-15-2022 End: 12-15-2022 ambulatory DO Teto Sigala Cal Work Phone: [facility] Work Phone: Start: 12-15-2022 End: 12-15-2022 Patient encounter procedure DO Teto Tillman Work Phone: [facility] [address] Work Phone: Start: 12-11-2022 Refill Chad wang MD Work Phone: Rheumatology Comment on above: Refill Request Start: 11-26-2022 Telephone encounter Chad almaguer MD Work Phone: Rheumatology Comment on above: Outside Lab Results Start: 11-01-2022 End: 11-01-2022 ambulatory Teto Cal Other [employer] Other Start: 11-01-2022 Telephone encounter Teto Tillman [facility] Start: 10-18-2022 End: 10-18-2022 ambulatory Teto Tillman Other [employer] Other Start: 10-18-2022 Telephone encounter Teto Waddell [facility] Start: 07-22-2022 Telephone encounter Chad almaguer MD Work Phone: Rheumatology Comment on above: Outside Lab Results Start: 06-21-2022 End: 06-21-2022 ambulatory Chanell Armstrong Other [employer] Other Start: 06-21-2022 Office outpatient vi sit 10 minutes Chanell Armstrong [facility] Start: 06-16-2022 End: 06-16-2022 ambulatory DO Teto Tillman Work Phone: [facility] Work Phone: Start: 06-16-2022 End: 06-16-2022 Patient encounter procedure DO Teto Tillman Work Phone: [facility] [address] Start: 04-06-2022 End: 04-06-2022 ambulatory Teto Tillman Other [place] Other Start: 04-06-2022 Telephone encounter [facility] [place] Start: 02-01-2022 End: 02-01-2022 Patient encounter procedure Chad Lacy MD Work Phone: Rheumatology Comment on above: Psoriatic arthritis (HCC) (Primary Dx); Rheumatoid arthritis of multiple sites with negative rheumatoid factor (HCC); High risk medication use; Leukopenia, unspecified type Start: 01-26-2022 End: 01-26-2022 ambulatory Teto Tillman Other [facility] Other Start: 01-26-2022 Telephone encounter [facility] [place] Start: 11-24-2021 End: 11-24-2021 ambulatory Teto Tillman Other [place] Other Start: 11-24-2021 Telephone encounter [facility] [place] Start: 11-23-2021 End: 11-23-2021 ambulatory Teto Tillman Other [place] Other Start: 11-23-2021 Office outpatient vi sit 15 minutes Teto Tillman [facility] [place] Start: 08-19-2021 End: 08-19-2021 ambulatory Teto Tillman Other [place] Other Start: 08-19-2021 Encounter for genera l adult medical examination without abnormal findings Teto Tillman [facility] [place] Start: 08-19-2021 Periodic preventive med est patient 40-64yrs Teto Tillman [facility] [place] Start: 07-22-2021 End: 07-22-2021 ambulatory Teto Tillman Other [place] Other Start: 07-22-2021 Telephone encounter [facility] [place] Start: 07-08-2021 Office outpatient vi sit 15 minutes Teto Tillman [facility] [place] Start: 12-15-2018 Patient encounter procedure RANDALLPrem SINHA [facility]RISTENS[facility] Facility:[id number] Start: 09-15-2018 [facility] Facility:[id number] Start: 08-24-2018 Patient encounter procedure [facility] Facility:[id number] Start: 04-01-2016 Problem, abnormal examination Teto Tillman Other [place] Other Procedures Date Procedure Procedure Detail Performing Clinician Start: 03-14-2025 Radex hips bilateral with pelvis minimum 5 views Azalea Izquierdo PA-C Work Phone: Start: 01-02-2025 X-ray of both knees, two views Teto Tillman DO Work Phone: Start: 08-13-2024 Radex hip unilateral with pelvis 2-3 views Eloisa Vanegas NP Work Phone: Start: 08-10-2023 MRI of left hip DO Deshawn Tillman Work Phone: Start: 12-15-2022 Pelvis X-ray DO Teto Tillman Work Phone: Start: 06-16-2022 Plain X-ray of right shoulder DO Teto Tillman Work Phone: Start: 06-16-2022 X-ray of cervical spine DO Teto Tillman Work Phone: Plan of Treatment Date Care Activity Detail Author Start: 08-01-2025 End: 10-31-2025 Basic metabolic 2000 panel - Serum or Plasma BASIC METABOLIC PANEL Lab Routine Avascular necrosis of bone of right hip (HCC) Expected: 08/01/2025, Expires: 10/31/2025 [facility] Comment on above: Expected: 08/01/2025, Expires: Start: 08-01-2025 End: 10-31-2025 CBC panel - Blood by Automated count COMPLETE BLOOD COUNT Lab Routine Avascular necrosis of bone of right hip (HCC) Expected: 08/01/2025, Expires: 10/31/2025 [facility] Comment on above: Expected: 08/01/2025, Expires: Start: 08-01-2025 End: 10-31-2025 CONFIRM BLOOD TYPE CONFIRM BLOOD TYPE Blood Bank Routine Avascular necrosis of bone of right hip (HCC) Expected: 08/01/2025, Expires: 10/31/2025 [facility] Comment on above: Expected: 08/01/2025, Expires: Start: 08-01-2025 Subsequent hospital visit by physician 08/01/2025 Hospital Encounter Admitting [address] [place] [address] Darin Landeros MD [address] [place] [address] Avascular necrosis of bone of right hip (HCC) [M87.051] Admitting Comment on above: Avascular necrosis of bone of right hip (HCC) [M87.051] Start: 08-01-2025 End: 10-31-2025 TYPE AND SCREEN,30 DAY TYPE AND SCREEN,30 DAY Blood Bank Routine Avascular necrosis of bone of right hip (HCC) Expected: 08/01/2025, Expires: 10/31/2025 [facility] Comment on above: Expected: 08/01/2025, Expires: Start: 08-01-2025 End: 10-31-2025 URINALYSIS, DIPSTICK ONLY URINALYSIS, DIPSTICK ONLY Lab Routine Avascular necrosis of bone of right hip (HCC) Expected: 08/01/2025, Expires: 10/31/2025 [facility] Comment on above: Expected: 08/01/2025, Expires: Start: 07-25-2025 End: 07-25-2025 Patient encounter procedure Orthopaedics Comment on above: PRE OP Start: 07-15-2025 End: 07-15-2025 Patient encounter procedure 07/15/2025 9:40 AM EST Office Visit Rheumatology [address] [place] [address] [place] [address] [facility] [place] [address] 4 month follow up Rheumatology Comment on above: 4 month follow up Start: 07-03-2025 End: 07-03-2025 Patient encounter procedure 07/03/2025 9:15 AM EDT Office [place] [id number] [facility]IST[facility] [employer] [facility] [facility] Comment on above: REGISTRATION Start: 05-13-2025 Influenza vaccination Influenza Vaccine (#1) [facility] Start: 04-04-2025 [facility] Start: 03-14-2025 End: 06-13-2025 Alanine aminotransferase [Enzymatic activity/volume] in Serum or Plasma ALANINE AMINOTRANSFERASE / SGPT Lab Routine Psoriatic arthritis (HCC) Rheumatoid arthritis of multiple sites with negative rheumatoid factor (HCC) Long-term current use of ustekinumab Expected: 03/14/2025, Expires: 06/13/2025 [facility] Comment on above: Expected: 03/14/2025, Expires: Start: 03-14-2025 End: 06-13-2025 Albumin [Mass/volume] in Serum or Plasma ALBUMIN Lab Routine Avascular necrosis of bone of right hip (HCC) Asymptomatic postmenopausal status Inflammatory polyarthropathy (HCC) Disorder of bone and cartilage Anemia, unspecified type Expected: 03/14/2025, Expires: 06/13/2025 [facility] Work Phone: Comment on above: Expected: 03/14/2025, Expires: Start: 03-14-2025 End: 06-13-2025 Aspartate aminotransferase [Enzymatic activity/volume] in Serum or Plasma ASPARTATE AMINOTRANSFERASE/SGOT Lab Routine Psoriatic arthritis (HCC) Rheumatoid arthritis of multiple sites with negative rheumatoid factor (HCC) Long-term current use of ustekinumab Expected: 03/14/2025, Expires: 06/13/2025 [facility] Comment on above: Expected: 03/14/2025, Expires: Start: 03-14-2025 End: 06-13-2025 CBC W Auto Differential panel - Blood [facility] Work Phone: Comment on above: Expected: 03/14/2025, Expires: Start: 03-14-2025 End: 06-13-2025 Cobalamin (Vitamin B12) [Mass/volume] in Serum or Plasma VITAMIN B12 Lab Routine Avascular necrosis of bone of right hip (HCC) Asymptomatic postmenopausal status Inflammatory polyarthropathy (HCC) Disorder of bone and cartilage Anemia, unspecified type Expected: 03/14/2025, Expires: 06/13/2025 [facility] Comment on above: Expected: 03/14/2025, Expires: Start: 03-14-2025 End: 06-13-2025 Creatinine and Glomerular filtration rate.predicted panel - Serum, Plasma or Blood CREATININE BLD Lab Routine Psoriatic arthritis (HCC) Rheumatoid arthritis of multiple sites with negative rheumatoid factor (HCC) Long-term current use of ustekinumab Expected: 03/14/2025, Expires: 06/13/2025 [facility] Comment on above: Expected: 03/14/2025, Expires: Start: 03-14-2025 End: 06-13-2025 Erythrocyte sedimentation rate SEDIMENTATION RATE, WESTERGREN Lab Routine Psoriatic arthritis (HCC) Rheumatoid arthritis of multiple sites with negative rheumatoid factor (HCC) Long-term current use of ustekinumab Expected: 03/14/2025, Expires: 06/13/2025 [facility] Comment on above: Expected: 03/14/2025, Expires: Start: 03-14-2025 End: 06-13-2025 Ferritin [Mass/volume] in Serum or Plasma FERRITIN Lab Routine Avascular necrosis of bone of right hip (HCC) Asymptomatic postmenopausal status Inflammatory polyarthropathy (HCC) Disorder of bone and cartilage Anemia, unspecified type Expected: 03/14/2025, Expires: 06/13/2025 [facility] Comment on above: Expected: 03/14/2025, Expires: Start: 03-14-2025 End: 06-13-2025 Folate [Mass/volume] in Serum or Plasma FOLATE, SERUM Lab Routine Avascular necrosis of bone of right hip (HCC) Asymptomatic postmenopausal status Inflammatory polyarthropathy (HCC) Disorder of bone and cartilage Anemia, unspecified type Expected: 03/14/2025, Expires: 06/13/2025 [facility] Comment on above: Expected: 03/14/2025, Expires: Start: 03-14-2025 End: 06-13-2025 Iron and Iron binding capacity panel - Serum or Plasma IRON AND TIBC Lab Routine Avascular necrosis of bone of right hip (HCC) Asymptomatic postmenopausal status Inflammatory polyarthropathy (HCC) Disorder of bone and cartilage Anemia, unspecified type Expected: 03/14/2025, Expires: 06/13/2025 [facility] Comment on above: Expected: 03/14/2025, Expires: Start: 03-14-2025 End: 06-13-2025 RETICULOCYTE COUNT RETICULOCYTE COUNT Lab Routine Avascular necrosis of bone of right hip (HCC) Asymptomatic postmenopausal status Inflammatory polyarthropathy (HCC) Disorder of bone and cartilage Anemia, unspecified type Expected: 03/14/2025, Expires: 06/13/2025 [facility] Comment on above: Expected: 03/14/2025, Expires: Start: 03-14-2025 End: 03-14-2025 Patient encounter procedure Orthopaedics Comment on above: Avascular necrosis of bone of right hip (HCC) [M87.051]Avascular necrosis of bone of left hip (HCC) [M87.052] 4 month follow up, p atient requested 03/14 Start: 02-14-2025 Covid-19 Vaccine (8 - Moderna risk season) Covid-19 Vaccine (8 - Moderna risk ) [facility] Start: 11-22-2024 End: 02-21-2025 Alanine aminotransferase [Enzymatic activity/volume] in Serum or Plasma ALANINE AMINOTRANSFERASE / SGPT Lab Routine Psoriatic arthritis (HCC) High risk medication use Expected: 11/22/2024, Expires: 02/21/2025 [facility] Comment on above: Expected: 11/22/2024, Expires: Start: 11-22-2024 End: 02-21-2025 Aspartate aminotransferase [Enzymatic activity/volume] in Serum or Plasma ASPARTATE AMINOTRANSFERASE/SGOT Lab Routine Psoriatic arthritis (HCC) High risk medication use Expected: 11/22/2024, Expires: 02/21/2025 [facility] Comment on above: Expected: 11/22/2024, Expires: Start: 11-22-2024 End: 02-21-2025 CBC W Auto Differential panel - Blood COMPLETE BLOOD COUNT AND DIFFERENTIAL Lab Routine Psoriatic arthritis (HCC) High risk medication use Expected: 11/22/2024, Expires: 02/21/2025 [facility] Work Phone: Comment on above: Expected: 11/22/2024, Expires: Start: 11-22-2024 End: 02-21-2025 CREATININE BLD CREATININE BLD Lab Routine Psoriatic arthritis (HCC) High risk medication use Expected: 11/22/2024, Expires: 02/21/2025 [facility] Comment on above: Expected: 11/22/2024, Expires: Start: 11-22-2024 End: 02-21-2025 Erythrocyte sedimentation rate SEDIMENTATION RATE, WESTERGREN Lab Routine Psoriatic arthritis (HCC) High risk medication use Expected: 11/22/2024, Expires: 02/21/2025 [facility] Comment on above: Expected: 11/22/2024, Expires: Start: 11-22-2024 End: 11-22-2024 Patient encounter procedure 11/22/2024 9:40 AM EDT Office Visit Rheumatology [address] [place] [address] [place] [id number] [facility] [place] [address] Return in about 4 months (around 11/22/2024). Rheumatology Comment on above: Return in about 4 months (around 11/23/19). Start: 09-26-2024 End: 09-26-2024 Patient encounter procedure 09/26/2024 9:30 AM EST Office Visit [facility] [address] [place] [address] Jr. Padmini Welch C, DO [address] [facility] [address] [place] [address] Avascular necrosis of bone of right hip (CMS/HCC) (Primary Dx); Avascular necrosis of bone of left hip (CMS/HCC); Right hip pain; Left hip pain [facility] Comment on above: Avascular necrosis of bone of right hip (CMS/HCC) (Primary Dx); Avascular necrosis of bone of left hip (CMS/HCC); Right hip pain; Left hip pain Start: 08-13-2024 End: 08-13-2025 Creatinine [Mass/volume] in Serum or Plasma Creatinine, Serum Lab Routine Avascular necrosis of bone of right hip (CMS/HCC) Expected: 08/13/2024 (Approximate), Expires: 08/13/[address] [facility] Comment on above: Expected: 08/13/2024 (Approximate), Expi res: 08/13/2025 Start: 08-13-2024 End: 08-13-2025 MR Hip - right WO and W contrast IV MR hip right w and wo IV contrast Imaging Routine Avascular necrosis of bone of right hip (CMS/HCC) Expected: 08/13/2024 (Approximate), Expires: 08/13/[address] [facility] Work Phone: Comment on above: Expected: 08/13/2024 (Approximate), Expi res: 08/13/2025 Start: 08-13-2024 End: 08-13-2024 Patient encounter procedure 08/13/2024 11:15 AM EST Office Visit [facility] [address] [place] [address] Eloisa Vanegas NP [address] [place] [address] Right hip pain (Primary Dx); Avascular necrosis of bone of right hip (CMS/HCC) [facility] Comment on above: Right hip pain (Primary Dx); Avascular necrosis of bone of right hip (CMS/HCC) Start: 07-25-2024 End: 10-24-2024 Alanine aminotransferase [Enzymatic activity/volume] in Serum or Plasma ALANINE AMINOTRANSFERASE / SGPT Lab Routine Psoriatic arthritis (HCC) High risk medication use Expected: 07/25/2024, Expires: 10/24/2024 [facility] Comment on above: Expected: 07/25/2024, Expires: Start: 07-25-2024 End: 10-24-2024 Aspartate aminotransferase [Enzymatic activity/volume] in Serum or Plasma ASPARTATE AMINOTRANSFERASE/SGOT Lab Routine Psoriatic arthritis (HCC) High risk medication use Expected: 07/25/2024, Expires: 10/24/2024 [facility] Comment on above: Expected: 07/25/2024, Expires: Start: 07-25-2024 End: 10-24-2024 CBC W Auto Differential panel - Blood COMPLETE BLOOD COUNT AND DIFFERENTIAL Lab Routine Psoriatic arthritis (HCC) High risk medication use Expected: 07/25/2024, Expires: 10/24/2024 [facility] Work Phone: Comment on above: Expected: 07/25/2024, Expires: Start: 07-25-2024 End: 10-24-2024 CREATININE BLD CREATININE BLD Lab Routine Psoriatic arthritis (HCC) High risk medication use Expected: 07/25/2024, Expires: 10/24/2024 [facility] Comment on above: Expected: 07/25/2024, Expires: Start: 07-25-2024 End: 10-24-2024 Erythrocyte sedimentation rate SEDIMENTATION RATE, WESTERGREN Lab Routine Psoriatic arthritis (HCC) High risk medication use Expected: 07/25/2024, Expires: 10/24/2024 [facility] Comment on above: Expected: 07/25/2024, Expires: Start: 07-25-2024 End: 07-25-2024 Patient encounter procedure 07/25/2024 9:40 AM EST Office Visit Rheumatology [address] [place], [place] [id number] [place] [id number] [facility] [place] [address] Return in about 4 months (around 07/20/2024). Rheumatology Comment on above: Return in about 4 months (around 07/20/20 24). Start: 05-13-2024 Covid-19 Vaccine ( season) Covid-19 Vaccine ( season) [facility] Start: 05-13-2024 Influenza vaccination Influenza Vaccine (#1) [facility] Start: 04-16-2024 [facility] Start: 03-19-2024 End: 06-18-2024 Alanine aminotransferase [Enzymatic activity/volume] in Serum or Plasma ALANINE AMINOTRANSFERASE / SGPT Lab Routine Psoriatic arthritis (HCC) Rheumatoid arthritis of multiple sites with negative rheumatoid factor (HCC) Expected: 03/19/2024, Expires: 06/18/2024 [facility] Comment on above: Expected: 03/19/2024, Expires: Start: 03-19-2024 End: 06-18-2024 Aspartate aminotransferase [Enzymatic activity/volume] in Serum or Plasma ASPARTATE AMINOTRANSFERASE/SGOT Lab Routine Psoriatic arthritis (HCC) Rheumatoid arthritis of multiple sites with negative rheumatoid factor (HCC) Expected: 03/19/2024, Expires: 06/18/2024 [facility] Comment on above: Expected: 03/19/2024, Expires: Start: 03-19-2024 End: 06-18-2024 CBC W Auto Differential panel - Blood COMPLETE BLOOD COUNT AND DIFFERENTIAL Lab Routine Psoriatic arthritis (HCC) Rheumatoid arthritis of multiple sites with negative rheumatoid factor (HCC) Expected: 03/19/2024, Expires: 06/18/2024 [facility] Work Phone: Comment on above: Expected: 03/19/2024, Expires: Start: 03-19-2024 End: 06-18-2024 CREATININE BLD CREATININE BLD Lab Routine Psoriatic arthritis (HCC) Rheumatoid arthritis of multiple sites with negative rheumatoid factor (HCC) Expected: 03/19/2024, Expires: 06/18/2024 [facility] Comment on above: Expected: 03/19/2024, Expires: Start: 03-19-2024 End: 06-18-2024 Erythrocyte sedimentation rate SEDIMENTATION RATE, WESTERGREN Lab Routine Psoriatic arthritis (HCC) Rheumatoid arthritis of multiple sites with negative rheumatoid factor (HCC) Expected: 03/19/2024, Expires: 06/18/2024 [facility] Comment on above: Expected: 03/19/2024, Expires: Start: 03-19-2024 End: 03-19-2024 Patient encounter procedure 03/19/2024 9:40 AM EDT Office Visit Rheumatology [address] [place] [address] [place] [address] [facility] [place], [place] [id number] Follow up in 4 months Rheumatology Comment on above: Follow up in 4 months Start: 01-29-2024 Diabetes Screening Diabetes Screening [facility] Start: 11-14-2023 End: 02-13-2024 Alanine aminotransferase [Enzymatic activity/volume] in Serum or Plasma ALT/SGPT Lab Routine Psoriatic arthritis (HCC) High risk medication use Expected: 11/14/2023, Expires: 02/13/2024 [facility] Work Phone: Comment on above: Expected: 11/14/2023, Expires: Start: 11-14-2023 End: 02-13-2024 Aspartate aminotransferase [Enzymatic activity/volume] in Serum or Plasma AST/SGOT BLD Lab Routine Psoriatic arthritis (HCC) High risk medication use Expected: 11/14/2023, Expires: 02/13/2024 [facility] Work Phone: Comment on above: Expected: 11/14/2023, Expires: Start: 11-14-2023 End: 02-13-2024 CBC W Auto Differential panel - Blood CBC + DIFF Lab Routine Psoriatic arthritis (HCC) High risk medication use Expected: 11/14/2023, Expires: 02/13/2024 [facility] Work Phone: Comment on above: Expected: 11/14/2023, Expires: Start: 11-14-2023 End: 02-13-2024 CREATININE BLD CREATININE BLD Lab Routine Psoriatic arthritis (HCC) High risk medication use Expected: 11/14/2023, Expires: 02/13/2024 [facility] Work Phone: Comment on above: Expected: 11/14/2023, Expires: Start: 11-14-2023 End: 02-13-2024 Erythrocyte sedimentation rate SED RATE WESTERGREN Lab Routine Psoriatic arthritis (HCC) High risk medication use Expected: 11/14/2023, Expires: 02/13/2024 [facility] Work Phone: Comment on above: Expected: 11/14/2023, Expires: Start: 11-10-2023 Covid-19 Vaccine () Covid-19 Vaccine () [facility] Start: 09-12-2023 Behavioral Health Screening Behavioral Health Screening [facility] Start: 09-12-2023 Depression Assessment Depression Assessment [facility] Start: 05-13-2023 Covid-19 Vaccine ( season) Covid-19 Vaccine ( season) [facility] Start: 05-13-2023 Influenza [facility] Start: 09-12-2022 DEPRESSION ASSESSMENT DEPRESSION ASSESSMENT [facility] Start: 05-13-2022 Influenza vaccination INFLUENZA (Season Ended) [facility] Start: 02-16-2022 COVID-19 VACCINE (5 - Booster for Moderna series) COVID-19 VACCINE (5 - Booster for Moderna series) [facility] Start: 02-01-2022 End: 04-03-2022 Alanine aminotransferase [Enzymatic activity/volume] in Serum or Plasma ALT/SGPT Lab Routine Psoriatic arthritis (HCC) High risk medication use Expected: 02/01/2022, Expires: 04/03/2022 [facility] Work Phone: Comment on above: Expected: 02/01/2022, Expires: 2 Start: 02-01-2022 End: 04-03-2022 Aspartate aminotransferase [Enzymatic activity/volume] in Serum or Plasma AST/SGOT BLD Lab Routine Psoriatic arthritis (HCC) High risk medication use Expected: 02/01/2022, Expires: 04/03/2022 [facility] Work Phone: Comment on above: Expected: 02/01/2022, Expires: 2 Start: 02-01-2022 End: 04-03-2022 CBC W Auto Differential panel - Blood CBC + DIFF Lab Routine Psoriatic arthritis (HCC) High risk medication use Expected: 02/01/2022, Expires: 04/03/2022 [facility] Work Phone: Comment on above: Expected: 02/01/2022, Expires: 2 Start: 02-01-2022 End: 04-03-2022 CREATININE BLD CREATININE BLD Lab Routine Psoriatic arthritis (HCC) High risk medication use Expected: 02/01/2022, Expires: 04/03/2022 [facility] Work Phone: Comment on above: Expected: 02/01/2022, Expires: 2 Start: 02-01-2022 End: 04-03-2022 Erythrocyte sedimentation rate SED RATE WESTERGREN Lab Routine Psoriatic arthritis (HCC) High risk medication use Expected: 02/01/2022, Expires: 04/03/2022 [facility] Work Phone: Comment on above: Expected: 02/01/2022, Expires: 2 Start: 09-12-2021 DEPRESSION ASSESSMENT DEPRESSION ASSESSMENT [facility] Start: 2021 RSV Vaccine (1 - 1-dose 60+ series) RSV Vaccine (1 - 1-dose 60+ series) [facility] Start: 2021 RSV Vaccine (1 - Risk 60-74 years 1-dose series) RSV Vaccine (1 - Risk 60-74 years 1-dose series) [facility] Start: 2011 SHINGRIX VACCINE (1 of 2) SHINGRIX VACCINE (1 of 2) [facility] Start: 2006 COLOGUARD (FIT-DNA) COLOGUARD (FIT-DNA) [facility] Start: 2006 Colonoscopy COLONOSCOPY [facility] Start: 2006 COLORECTAL CANCER SCREENING COLORECTAL CANCER SCREENING [facility] Start: [address] COLONOGRAPHY [facility] Start: 2006 DIABETES SCREEN DIABETES SCREEN [facility] Start: 2006 Diabetes Screening Diabetes Screening [facility] Start: 2006 FECAL OCCULT BLOOD FECAL OCCULT BLOOD [facility] Start: 2006 Lipid 1996 panel - Serum or Plasma Lipid Screening [facility] Start: 2006 Lipid panel Lipid Screening [facility] Start: 2006 LIPID SCREEN LIPID SCREEN [facility] Start: 2006 Screening for malignant neoplasm of colon [facility] Start: 2006 SIGMOIDOSCOPY SIGMOIDOSCOPY [facility] Start: 2001 Mammography [facility] Start: 2001 Screening for malignant neoplasm of breast [facility] Start: 1991 HPV TESTING HPV TESTING [facility] Start: 1991 Screening for malignant neoplasm of cervix [facility] Start: 1982 PAP TESTING PAP TESTING [facility] Start: 1982 Screening for malignant neoplasm of cervix [facility] Start: 02-13-1980 Pneumococcal Vaccine: 50+ (1 of 2 - PCV) Pneumococcal Vaccine: 50+ (1 of 2 - PCV) [facility] Start: 02-13-1980 Urine microalbumin profile [facility] Start: 1979 Anxiety Screening Anxiety Screening [facility] Start: 1979 Depression Screening Depression Screening [facility] Start: 1979 HEPATITIS C SCREENING HEPATITIS C SCREENING [facility] Start: 1979 Hepatitis C screening Hepatitis C Screening [facility] Start: 1979 HIV SCREENING HIV SCREENING [facility] Start: 1979 HIV screening HIV Screening [facility] Start: 1973 Adult depression screening assessment DEPRESSION SCREENING [facility] Start: 02-13-1972 Screening for malignant neoplasm of cervix Cervical Cancer Screening [facility] Start: 1966 PNEUMOCOCCAL (1 - PCV) PNEUMOCOCCAL (1 - PCV) [facility] Start: 1967 [facility]neum[facility] Start: 1966 COVID-19 VACCINE (#1) COVID-19 VACCINE (#1) [facility] Start: 1960 Screening for malignant neoplasm of colon [facility] Healthcare Arthrp acetblr/prox fem prostc agrft/algrft [facility] Comment on above: Ordered: 03/27/2025 End: 04-13-2026 BD DXA TRABECULAR BONE SCORE (TBS) BD DXA TRABECULAR BONE SCORE (TBS) Radiology Routine Avascular necrosis of bone of right hip (HCC) Asymptomatic postmenopausal status Inflammatory polyarthropathy (HCC) Disorder of bone and cartilage Anemia, unspecified type 1 Occurrences starting 03/14/2025 until 04/13/2026 [facility] Comment on above: 1 Occurrences starting 03/14/2025 until 04/13/2026 End: 04-13-2026 DXA Skeletal system.axial Views for bone density DXA-AXIAL SKELETON Radiology Routine Avascular necrosis of bone of right hip (HCC) Asymptomatic postmenopausal status Inflammatory polyarthropathy (HCC) Disorder of bone and cartilage Anemia, unspecified type 1 Occurrences starting 03/14/2025 until 04/13/2026 [facility] Comment on above: 1 Occurrences starting 03/14/2025 until 04/13/2026 End: 03-25-2026 ECG COMPLETE ECG COMPLETE ECG Routine Avascular necrosis of bone of right hip (HCC) 1 Occurrences starting 03/27/2025 until 03/25/2026 [facility] Work Phone: Comment on above: 1 Occurrences starting 03/27/2025 until 03/25/2026 Patient Education Know your Meds [facility] Work Phone: REFER FOR ADMIT INTERVIEW REFER FOR ADMIT INTERVIEW Procedures Routine Avascular necrosis of bone of right hip (HCC) Ordered: 03/27/2025 [facility] Comment on above: Ordered: 03/27/2025 End: 04-06-2026 XR HIP BILATERAL 5V PEL/AP/LAT EACH HIP XR HIP BILATERAL 5V PEL/AP/LAT EACH HIP Radiology Routine Primary osteoarthritis of right hip Primary osteoarthritis of left hip 1 Occurrences starting 03/11/2025 until 04/06/2026 [facility] Work Phone: Comment on above: 1 Occurrences starting 03/11/2025 until 04/06/2026 End: 04-24-2026 XR Pelvis and Hip - right AP and Lateral frog XR HIP GENERAL 3V PELV/AP/LAT RIGHT Radiology Routine Avascular necrosis of bone of right hip (HCC) 1 Occurrences starting 03/27/2025 until 04/24/2026 [facility] Comment on above: 1 Occurrences starting 03/27/2025 until 04/24/[address] [facility] Immunizations Immunization Date Immunization Notes Care Provider Fa ciliyury 08-16-2024 COVID-19 (MODERNA) 12Y and older Teto Tillman DO Work Phone: [facility] 08-16-2024 influenza, seasonal, injectable, preservative free Teto Tillman DO Work Phone: [facility] 08-16-2024 influenza virus vaccine, unspecified formulation Chad Lacy MD Work Phone: [facility] 09-15-2023 COVID-19 (MODERNA) 12Y and older Teto Tillman DO Work Phone: [facility] 07-04-2023 influenza, injectabl e, quadrivalent, preservative free Chanell Armstrong Other [facility] 07-04-2023 influenza virus vaccine, unspecified formulation Chad Lacy MD Work Phone: [facility] 09-16-2022 COVID-19 mRNA Bivale nt Booster (Moderna) Tetoya Tillman DO Work Phone: [facility] 06-21-2022 influenza, injectabl e, quadrivalent, preservative free Chanell Patti Other [facility] 06-21-2022 influenza virus vaccine, unspecified formulation Chad Lacy MD Work Phone: [facility] 12-22-2021 COVID-19 mRNA-1273 (Moderna) Teto Tillman DO Work Phone: [facility] 06-10-2021 COVID-19 Vaccine Moderna - Documentation Purposes Only Teto Cal Other [facility] 05-30-2021 Seasonal, quadrivale nt, recombinant, injectable influenza vaccine, preservative free Chad Lacy MD Work Phone: [facility] 05-20-2021 influenza, seasonal, injectable Teto Cal Other [facility] 12-26-2020 COVID-19 Vaccine Moderna - Documentation Purposes Only Teto Tillman Other [facility] 11-28-2020 COVID-19 Vaccine Moderna - Documentation Purposes Only Teto Tillman Other [facility] 05-28-2020 influenza, injectabl e, quadrivalent, preservative free Teto Tillman Other [facility] 05-22-2020 influenza, injectabl e, quadrivalent, preservative free Chad Lacy MD Work Phone: [facility] 04-26-2019 influenza, injectabl e, quadrivalent, contains preservative Chad Lacy MD Work Phone: [facility] 04-26-2019 zoster vaccine recombinant Teto Tillman Other [facility] 04-26-2019 influenza, seasonal, injectable Teto Tillman Other [facility] 01-13-2019 zoster vaccine recombinant Teto Tillman Other [facility] 07-20-2018 influenza, injectabl e, quadrivalent, preservative free DO Teto Tillman Work Phone: [facility] 07-20-2018 influenza, injectabl e, quadrivalent, contains preservative Teto Cal Other [facility] 06-29-2017 influenza, injectabl e, quadrivalent, preservative free DO Teto Tillman Work Phone: [facility] 06-29-2017 influenza, injectabl e, quadrivalent, contains preservative Teto Cal Other [facility] 08-05-2015 influenza, injectabl e, quadrivalent, contains preservative Teto Cal Other [facility] [employer] Other 08-05-2015 influenza, injectabl e, quadrivalent, preservative free Chad Lacy MD Work Phone: [facility] 10-09-2013 influenza virus vaccine, split virus (incl. purified surface antigen) Teto Tillman Other [facility] [employer] Other 10-09-2013 influenza virus vaccine, unspecified formulation DO Teto Tillman Work Phone: [facility] 09-18-2012 influenza virus vaccine, split virus (incl. purified surface antigen) Teto Cal Other [facility] [employer] Other 09-18-2012 influenza virus vaccine, unspecified formulation DO Teto Tillman Work Phone: [facility] 07-13-2010 influenza virus vaccine, split virus (incl. purified surface antigen) Teto Tillman Other [facility] [employer] Other 07-13-2010 influenza virus vaccine, unspecified formulation DO Teto Tillman Work Phone: [facility] 07-07-2009 influenza virus vaccine, split virus (incl. purified surface antigen) Teto Tillman Other [facility] [employer] Other 07-07-2009 influenza virus vaccine, unspecified formulation DO Teto Tillman Work Phone: [facility] Payers Date Payer Category Payer Self-pay [id number] 2021 Private Health Insurance PATSY MCDERMOTT [facility] [id number] 2021-Present [phone] [facility] [id number] [place] [address] Open Access [id number] 2007 Private Health Insurance [id number] 2007 Private Health Insurance [id number] 1961 Unknown [id number] 1961 Unknown [id number] 1961 Unknown [id number] 356 1961 Unknown [id number] [id number] 1961 Unknown [id number] 1259 1961 Unknown [id number] 1259 1961 Unknown [id number] 1259 Unknown [id number] Unknown [id number] Unknown [id number] Social History Date Type Detail Facility Start: 07-04-2019 End: 07-05-2022 Tobacco smoking status UTIS Never smoked tobacco [facility] Start: 02-01-2022 End: 11-22-2024 Alcohol intake Not Asked [facility] Start: 1960 Sex Assigned At Not on file [facility] Start: 01-22-2022 End: 07-05-2022 Exposure to SARS-CoV-2 (event) Not sure [facility] Start: 12-03-2022 End: 07-14-2023 Sex Assigned At [facility] [employer] Other Start: 1960 Sex Assigned At Female F [facility] Start: 07-05-2022 End: 09-27-2023 Tobacco use and exposure Smokeless tobacco non-user [facility] Start: 12-03-2022 End: 07-14-2023 History of Social function [facility] Start: 08-13-2012 National Score (1-100), lower number is lower risk 70 [facility] Start: 07-21-2024 End: 01-03-2025 Sex Female (finding) [facility] Start: 09-27-2023 End: 09-26-2024 Alcoholic beverage intake Current drinker of alcohol (finding) [facility] Clinical Notes 07-08-2021 to 05-28-2025 Telephone Encounter - Shannan Corado LPN - 05/28/2025 3:18 PM EDTTelephone Encounter - Shannan Corado LPN - 05/28/2025 3:18 PM EDTMc Tito Noriega, RN - 03/27/2025 9:38 AM EDTPatient Instructions Note Date & Type Note Facility 05-28-2025 Telephone encounter Note Ustekinumab-ttwe 90MG/ML syringes prior authorization initiated on Cover My Meds. Pending. ALESSANDRA GRAY (Mullen: BBGAAURB) PA Rx #: [id number] [facility] 05-28-2025 Miscellaneous Notes Ustekinumab-ttwe 90MG/ML syringes prior authorization initiated on Cover My Meds. Pending. ALESSANDRA GRAY (Mullen: BBGAAURB) PA Rx #: [id number] documented in this encounter [facility] 03-27-2025 Note HNO ID: [id number] Author: TITO COON, RN Service: ? Author Type: Registered Nurse Type: Progress Notes Filed: 03/27/2025 09:38 Note Text: Patient referred to Blood Management for anemia evaluation/pre-surgical optimization. Current and complete lab data unavailable. Unable to complete evaluation. Referral will be closed. [facility] 03-27-2025 History of Presen t illness Narrative Patient referred to Blood Management for anemia evaluation/pre-surgical optimization. Current and complete lab data unavailable. Unable to complete evaluation. Referral will be closed. documented in this encounter [facility] 03-18-2025 Telephone encounter Note Called Alessandra, concerned that insurance change medication to a bio-similar. Let patient know that Dr. Lacy is aware of bio-similars and the change is what insurance will approve. [facility] 03-18-2025 Miscellaneous Notes Called Alessandra, concerned that insurance change medication to a bio-similar. Let patient know that Dr. Lacy is aware of bio-similars and the change is what insurance will approve. Pt is identified by name and birthdate: Yes Patient calls states she received a letter from [employer] that they want to send a Biologic Medication instead of Stelara Pt requesting call Please advise documented in this encounter [facility] 03-18-2025 Telephone encounter Note Pt is identified by name and birthdate: Yes Patient calls states she received a letter from [employer] that they want to send a Biologic Medication instead of Stelara Pt requesting call Please advise [facility] 03-14-2025 Instructions Azalea Izquierdo PA-C - 03/14/2025 11:09 AM EDT BONE MINERAL DENSITY PATIENT INSTRUCTIONS Bone mineral density testing measures the amount of calcium in certain parts of your bones. This information determines how strong your bones are. The test is used to detect osteoporosis, a disease in which the bone's mineral content and density are low, increasing a person's risk of fractures. The lumbar spine (lower back) and the hip are the skeletal sites usually examined. For the test, remember that: 1. You cannot take this test if you are . 2. Eat a normal diet on the day of the test. 3. Take your medications as you normally would. 4. DO NOT take calcium supplements (such as Tums) for 24 hours before the test. 5. On the day of the test, leave valuables (jewelry or credit cards) at home. 6. The test should be performed prior to oral, rectal or IV contrast studies, or at least 7 days after any of these studies. For the test, you may be asked to wear a hospital gown. You will lie on your back, on a padded table, in a comfortable position. Generally, you can resume your usual activities immediately. Instructions for Blood Management Decreasing the need for blood transfusions after surgery can help your body heal faster and help your body fight infection better. Blood Management will check your blood and iron levels to see if you would benefit from having treatment to help increase your blood counts before your surgery. What do you need to do? 1. Go and have your labs (CBC, Ferritin, Iron Studies) drawn today or within the next three days at the nearest [facility] lab. If you would like, you can go today, following your appointment, to any of our outpatient labs. 2. If it is determined that you would benefit from treatment, someone from the Blood Management Department will call you. If we call you, we will then give further instructions for iron replacement. If you do not hear from Blood Management, your lab results were okay and you do not need additional iron replacement. Questions? Contact us: If you are having surgery at [facility] or If you are having surgery at [facility], [facility], or [facility] documented in this encounter [facility] 03-14-2025 History of Presen t illness Narrative Radiology Service Progress Note PATIENT NAME: Alessandra Gray DATE OF SERVICE: March 14, 2025 TIME: 10:00 AM PATIENT IDENTITY VERIFICATION COMPLETED USING TWO (2) IDENTIFIERS: Name and Date of confirmed by patient verbally. FALL SCREENING: Has the patient had 2 falls in the last year or 1 fall with injury or currently using an Ambulatory Assistive Device (Walker, Cane, Wheelchair, Crutches, etc.)? No PATIENT GENDER DATA: Assigned female at . status: : No status: NO. PATIENT RELEVANT IMPLANT DATA REVIEWED: Not Applicable PATIENT PRESENTS WITH AN IMPLANTABLE OR ATTACHED GERIATRIC PHYSICIAN: No RADIOLOGY DEPARTMENT: General X-ray: Exam(s) Completed: Pelvis X-Ray: Pelvis with Hip Bilateral and Wt. Bearing PERIPHERAL IV DATA: Not applicable SIGNED BY: RT Dina(Karla) March 14, 2025 10:00 AM documented in this encounter [facility] 03-14-2025 Note HNO ID: [id number] Author: ADELA BARLOW RT(R) Service: Radiology Author Type: Technologist Type: Progress Notes Filed: 03/14/2025 10:00 Note Text: Radiology Service Progress Note PATIENT NAME: Alessandra Gray DATE OF SERVICE: March 14, 2025 TIME: 10:00 AM PATIENT IDENTITY VERIFICATION COMPLETED USING TWO (2) IDENTIFIERS: Name and Date of confirmed by patient verbally. FALL SCREENING: Has the patient had 2 falls in the last year or 1 fall with injury or currently using an Ambulatory Assistive Device (Walker, Cane, Wheelchair, Crutches, etc.)? No PATIENT GENDER DATA: Assigned female at . status: : No status: NO. PATIENT RELEVANT IMPLANT DATA REVIEWED: Not Applicable PATIENT PRESENTS WITH AN IMPLANTABLE OR ATTACHED GERIATRIC PHYSICIAN: No RADIOLOGY DEPARTMENT: General X-ray: Exam(s) Completed: Pelvis X-Ray: Pelvis with Hip Bilateral and Wt. Bearing PERIPHERAL IV DATA: Not applicable SIGNED BY: RT Dina(R) March 14, 2025 10:00 AM [facility] 03-14-2025 Note HNO ID: [id number] Author: AZALEA IZQUIERDO PA-C Service: ? 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 She has a history of psoriatic arthritis as well as chronic pain due to lumbar issues. She is on morphine and [place] daily for her chronic pain. Discussed surgical and nonsurgical intervention. Recommended a DEXA scan as she has not had one. Discussed future right total hip arthroplasty 07/30/2025 at [facility] with Dr. Landeros. Patient has been pre-oped today and given the pre-op wipes and information Patient will need to see Dr. Landeros prior to surgery to meet and sign consents. Diagnoses: (M87.051) Avascular necrosis of bone of right hip (HCC) (primary encounter diagnosis) (Z78.0) Asymptomatic postmenopausal status (M06.4) Inflammatory polyarthropathy (HCC) (M89.9, M94.9) Disorder of bone and cartilage (D64.9) Anemia, unspecified type Based upon the evaluation today and after discussions with Alessandra Gray, Alessandra Gray has significant, worsening pain at the hip. This pain is increased with activity and weight bearing, and interferes with activities of daily living. These symptoms have continued despite a number of non-surgical measures, including a trial of oral pain medication (for at least 12 weeks). At this point, the patient will not benefit from further PT due to the severity of their condition. The patient's physical examination is consistent with limitations in range of motion, pain with passive range of motion, and an antalgic gait. These examination findings are corroborated by imaging findings of joint space narrowing, periarticular osteophyte formation, and subchondral sclerosis. The patient has been treated by the practice and all reasonable treatments have failed to control the disease, which causes significant pain andlimits activities of daily living. The patient has failed conservative treatment and joint replacement surgery was discussed and agreed upon by both provider and patient. The patient has elected to proceed with surgical management to improve function and relieve pain refractory to non-surgical measures: Right Primary Total Hip Arthroplasty as evidenced by six months of unsuccessful non-operative treatment as outlined in the HPI below. Surgery Details Date and Location: At on 08/01/2025. Implants: Jim Robotic: No Predicted LOS: 1 day (Outpatient candidate) The risks and benefits of surgery were discussed at length including but not limited to the risks of infection, bleeding, nerve or blood vessel injury, deep venous thrombosis, pulmonary embolism, , paralysis, hip dislocation, leg length discrepancy (including requiring use of permanent shoe lift), bone fracture, component loosening or failure requiring re-operation or amputation. Informed consent was obtained and the patient was scheduled. We also discussed fixation strategies including cement and cementless fixation and modern alternative bearings including metal or ceramic with cross-linked polyethylene, [id number] and [id number]-hpxav as well as advantages and disadvantages of each. We also discussed less invasive surgical approaches and reported benefits and risks of these approaches. The patient has been ordered: Office Visit on 03/14/25 [facility] WALKER TOTAL JOINT REPLACEMENT PRE-SURGERY EDUCATION CLASS DXA-AXIAL SKELETON BD DXA TRABECULAR BONE SCORE (TBS) ALBUMIN COMPLETE BLOOD COUNT AND DIFFERENTIAL IRON AND TIBC FERRITIN VITAMIN B12 FOLATE, SERUM RETICULOCYTE COUNT BLOOD MANAGEMENT REFERRAL CONSULT TO [facility] PATIENT PLACED ON RACHEL DANDRE CARE PATH CONSULTS: IMPACT/PACE Consult for preoperative clearance. Total Joint Arthroplasty: Risk Calculator Alessandra Nicholsrohan has a 5.11% chance of NOT returning home at discharge for a Primary total Hip replacement. Alessandra's estimated Length of Stay is 1 day (Outpatient candidate). Alessandra's 30 day chance of readmission is 1.14%. Readmission Probability 1.14 % (within 30 days following surgery) Estimated LOS 1 day Discharge Disposition Probability D/C to Home 94.89 % D/C to SNF 5.11 % These calculations are based on the following factors: - 65 years of age - sex is not male - BMI of 28.47 kg/m2 - NarxCare score of 392 - 0 hospitalizations in the last 12 months - no history of heart disease - no history of diabetes - no history of COPD - no history of anemia - preoperative ambulation: independent community distances - 6 step(s) to enter home - bed location is NOT on the first floor - bath loc (more content not included)... [facility] 03-14-2025 History of Presen t illness Narrative Images from the original note were not included. 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 She has a history of psoriatic arthritis as well as chronic pain due to lumbar issues. She is on morphine and [place] daily for her chronic pain. Discussed surgical and nonsurgical intervention. Recommended a DEXA scan as she has not had one. Discussed future right total hip arthroplasty 07/30/2025 at [facility] with Dr. Landeros. Patient has been pre-oped today and given the pre-op wipes and information Patient will need to see Dr. Landeros prior to surgery to meet and sign consents. Diagnoses: (M87.051) Avascular necrosis of bone of right hip (HCC) (primary encounter diagnosis) (Z78.0) Asymptomatic postmenopausal status (M06.4) Inflammatory polyarthropathy (HCC) (M89.9, M94.9) Disorder of bone and cartilage (D64.9) Anemia, unspecified type Based upon the evaluation today and after discussions with Alessandra Davon Simonerohan, Alessandra Gray has significant, worsening pain at the hip. This pain is increased with activity and weight bearing, and interferes with activities of daily living. These symptoms have continued despite a number of non-surgical measures, including a trial of oral pain medication (for at least 12 weeks). At this point, the patient will not benefit from further PT due to the severity of their condition. The patient's physical examination is consistent with limitations in range of motion, pain with passive range of motion, and an antalgic gait. These examination findings are corroborated by imaging findings of joint space narrowing, periarticular osteophyte formation, and subchondral sclerosis. The patient has been treated by the practice and all reasonable treatments have failed to control the disease, which causes significant pain and limits activities of daily living. The patient has failed conservative treatment and joint replacement surgery was discussed and agreed upon by both provider and patient. The patient has elected to proceed with surgical management to improve function and relieve pain refractory to non-surgical measures: Right Primary Total Hip Arthroplasty as evidenced by six months of unsuccessful non-operative treatment as outlined in the HPI below. Surgery Details Date and Location: At on 08/01/2025. Implants: Jim Robotic: No Predicted LOS: 1 day (Outpatient candidate) The risks and benefits of surgery were discussed at length including but not limited to the risks of infection, bleeding, nerve or blood vessel injury, deep venous thrombosis, pulmonary embolism, , paralysis, hip dislocation, leg length discrepancy (including requiring use of permanent shoe lift), bone fracture, component loosening or failure requiring re-operation or amputation. Informed consent was obtained and the patient was scheduled. We also discussed fixation strategies including cement and cementless fixation and modern alternative bearings including metal or ceramic with cross-linked polyethylene, muwvljm-[id number]-xkziafr and sbgcq-zo-ipysr as well as advantages and disadvantages of each. We also discussed less invasive surgical approaches and reported benefits and risks of these approaches. The patient has been ordered: Office Visit on 03/14/25 [facility] TOTAL JOINT REPLACEMENT PRE-SURGERY EDUCATION CLASS DXA-AXIAL SKELETON BD DXA TRABECULAR BONE SCORE (TBS) ALBUMIN COMPLETE BLOOD COUNT AND DIFFERENTIAL IRON AND TIBC FERRITIN VITAMIN B12 FOLATE, SERUM RETICULOCYTE COUNT BLOOD MANAGEMENT REFERRAL CONSULT TO [facility] PATIENT PLACED ON [facility] PATH CONSULTS: IMPACT/PACE Consult for preoperative clearance. Total Joint Arthroplasty: Risk Calculator Alessandra Davon Gray has a 5.11% chance of NOT returning home at discharge for a Primary total Hip replacement. Alessandra's estimated Length of Stay is 1 day (Outpatient candidate). Alessandra's 30 day chance of readmission is 1.14%. Readmission Probability 1.14 % (within 30 days following surgery) Estimated LOS 1 day Discharge Disposition Probability D/C to Home 94.89 % D/C to SNF 5.11 % These calculations are based on the following factors: - 65 years of age - sex is not male - BMI of 28.47 kg/m2 - NarxCare score of 392 - 0 hospitalizations in the last 12 months - no history of heart disease - no history of diabetes - no history of COPD - no history of anemia - preoperative ambulation: independent community distances - 6 step(s) to enter home - bed location is NOT on the first floor - bath location is NOT on the first floor - caregiver is consistent - home is not more than 150 miles away - PROMIS-10 Mental Health T score not available - Marital status: Risk Factors for Total Knee Arthroplasty (TKA) Major Risk Factors Obesity Unknown Risk High: BMI > 40 Moderate: BMI 30-40 Normal: BMI < 30 Diabetes normal High: A1C > 8 Moderate: A1C 7-8 Normal: A1C < 7 Hx of DVT / PE normal High: dx of DVT / PE Normal: no dx of DVT / PE Smoking normal High: Current smoker Normal: Non smoker Narcotics Use High Risk High:NarxCare >=300 Moderate: 100-299 Normal: 0-99 Depression Unknown Risk High: PHQ-9 >14 Moderate: PHQ-9 5-14 Normal: PHQ-9 < 5 Area Deprivation Index (MARYLIN) Unknown Risk High: MARYLIN Score > 75 Moderate: MARYLIN 50-75 Normal: MARYLIN < 50 Obesity: height and/or weight are out of date (There is no height and/or weight reading in the past 365 days, so the below BMI readings may be inaccurate) BMI Readings from Last 3 Encounters: 03/14/25 : 28.47 kg/m 11/22/24 : 28.46 kg/m 07/25/24 : 30.41 kg/m Area Deprivation Index (MARYLIN) 02/01/2022 07/14/2023 MARYLIN Score National Score 70 79 Patient Health Questionnaire (PHQ-9) No data to display (0-4) minimal depression, (5-9) mild depression, (10-14) moderate depression, (15-19) moderately severe depression, (20-27) severe depression Bone Density Risk Screen Alessandra Gray is low risk for bone loss based on her age and having no previous diagnoses of osteopenia, osteoporosis, Paget's disease of bone, or cancer of bone. Other risk factors are listed below to determine if they pose a significant risk for bone loss, and if so, recommend ordering a bone densitometry and, upon receiving a result, as needed, order a consult to a bone health specialist (Rheumatology, Endocrinology, or Women's Health) for bone assessment. Risk Factors: History of falls Prednisone or use of systemic steroids Dx of Rheumatoid Arthritis Additional Risk Factors NarxCare score NARX Narcotics: 392 (03/14/2025 8:58 AM) Recommend a consult to Chronic Pain Management. Malnutrition: No Malnutrition Screening Tool (MST) score on file- please complete the MST screening tool (click here to open) and refresh the note. 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 Alessandra Gray has had progressive problems with the hip(s) constantly over the past few year(s) interfering with activities which include rising from a sitting position, standing for prolonged periods of time, getting in and out of a car, and climbing stairs. The problem began limiting activities 1-3 years ago. Alessandra reports a current pain level of 4 (Hip-Left (right hip worse)). She describes the pain as Aching. The pain is Intermittent, and has lasted for 1.5 Years. Interventions tried include Medication, Reposition, Relaxation, Heat. FALL RISK: Alessandra is at risk for falls. She has had either 2 falls in the last year or at least 1 fall with injury and/or is currently using an ambulatory assitive device (walker, cane, wheelchair, crutches, etc.) The following interventions were put in place to prevent falls this visit: Placed Falling Man Sign on Door PROMIS Physical Function Score No data to display FUNCTIONAL STATUS: Totally dependent PREVIOUS TREATMENTS: Past anti-inflammatory medications (not necessarily for this reason for visit): methylprednisolone Medical: OTC NSAIDS for 3 Months or Greater (Tylenol / acetaminophen), Steroid Injections Left Hip, Steroid Injections Right Hip Physical Therapy: Activities Modified REVIEW OF SYSTEMS: PAIN ASSESSMENT: See HPI. MUSCULOSKELETAL: See HPI. No data to display No past medical history on file. No past surgical history on file. No family history on file. Social History Tobacco Use Smoking status: Never Smokeless tobacco: Never ALLERGIES: Aspirin, Clarithromycin, Bee Pollen, Ceclor [Cefaclor], Erythromycin, Gold Salts, Nsaids (Non-Steroidal Anti-Inflammatory Drug), Penicillins, Pineapple, Prilosec [Omeprazole], and Sulfa (Sulfonamide Antibiotics) MEDICATIONS: meclizine (ANTIVERT) 25 mg tab Take 25 mg by mouth three times a day as needed. STELARA 90 mg/mL syringe INJECT 1 ML UNDER THE SKIN EVERY 3 MONTHS betamethasone dipropionate (DIPROSONE) 0.05 % cream APPLY ONE APPLICATION VIA EXTERNAL ROUTE TO AFFECTED AREA ONCE DAILY carvedilol (COREG) 12.5 mg tablet TAKE ONE TABLET BY MOUTH TWICE A DAY ( IN THE MORNING AND IN THE EVENING ) WITH FOOD HYDROcodone-Acetaminophen (NORCO) 10-325 mg per tablet Take 1 tablet by mouth twice daily as needed. morphine SR (MS CONTIN) 30 mg 12 hr tablet TAKE ONE TABLET BY MOUTH EVERY 12 HOURS -FILL ON 3111015 TROKENDI XR 100 mg capsule TROKENDI XR 200 mg capsule pravastatin (PRAVACHOL) 40 mg tablet TAKE ONE TABLET BY MOUTH DAILY FOR 90 DAYS SUMAtriptan (IMITREX) 100 mg tablet Take 100 mg by mouth. SUMAtriptan (IMITREX) 20 mg/actuation nasal spray Use 1 [place] in the nose every 2 hours as needed. cyanocobalamin (VITAMIN B-12) 100 mcg tab Take 100 mcg by mouth. ferrous sulfate 325 mg (65 mg iron) tablet Take 325 mg by mouth. cholecalciferol (VITAMIN D3) 400 unit tab Take 400 Units by mouth. duloxetine (CYMBALTA) 60 mg ORAL CpDR Take one(1) tablet daily. folic acid 1 mg ORAL Tab Take one (1) tablet daily. metaxalone (SKELAXIN) 800 mg ORAL Tab 1 tab 3 times per day OBJECTIVE PHYSICAL EXAM There were no vitals taken for this visit. All other systems deferred. GENERAL: Appears healthy, well-nourished, no deformities. HABITUS: Normal GAIT: Antalgic to the right HIP EXAM: Right: ROM: Extension: Normal Flexion: 110 degrees Internal Rotation: 20 degrees External Rotation: 30 degrees Abduction: 40 degrees Adduction: 30 degrees Strength: Abduction 5/5 and Flexion 5/5 Palpation: No tenderness Log roll: painful. Straight leg raise: Negative Neurovascular Status: Sensation Intact and Moves foot and ankle up & down DATA: Most recent hip imaging was completed on 03/14/2025 (MRI HIP WO/W IVCON RIGHT) . Diagnostic tests reviewed for today's visit: Right hip X-Ray: Evidence of Avascular Necrosis without Collapse Left hip X-Ray: Evidence of Avascular Necrosis without Collapse The following conditions were addressed during the office visit today: Chronic narcotic use - Opiate medication appropriate use counseling SIGNATURE: Azalea Izquierdo PA-C PATIENT NAME: Alessandra Gray DATE: March 14, 2025 TIME: 10:21 AM documented in this encounter [facility] 03-14-2025 Note HNO ID: [id number] Author: CHAD LACY MD Service: ? Author Type: Physician Type: Progress Notes Filed: 03/14/2025 09:28 Note Text: Rheumatology Outpatient Clinic Date of Service: 03/14/2025 Patient: Alessandra Gray Medical Record: [id number] Primary Care Physician: Teto Tillman DO Last Rheumatology visit: 11/22/2024 (with Chad Lacy) History of Present Illness Alessandra Gray is a 65 year old White female who presents on 03/14/2025 for an in-person visit for evaluation of Psoriatic Arthritis. She is currently taking ustekinumab. HISTORY OF PRESENT ILLNESS This patient is well-known to me from my previous practice with [facility] with a history of psoriatic arthritis/seronegative rheumatoid arthritis. This patient has been on several different DMARDs and Biologics over the years. She has tried and failed methotrexate, Arava, Humira/Enbrel, Rituxan, Orencia, Actemra in the past. In the past year she has been on Stelara 45 mg dosage titrated to 90 mg dosage where she has achieved an very good clinical response. She was last seen in September 2021 was doing well and was due for her Stelara in November 2021 when she was unable to achieve prior authorization for the Stelara because I was between offices. She currently experiences stiffness and pain in the hands, wrists shoulders, knees, ankles and feet. She has now even had some right rib pain that is been moderately active. Generally she has done well without any new general medical issues from her other doctors. Meds tried/failed in the past: Methotrexate Leflunomide Humira/Enbrel Actemra Orencia Rituxan Xeljanz/Rinvoq INTERVAL HISTORY Patient returns for reevaluation and management of her psoriatic arthritis/rheumatoid arthritis. Since last visit the patient is main Stelara 90 mg subcutaneously once every 12 weeks. She continues to tolerate the Stelara well. Overall her psoriatic arthritis/rheumatoid arthritis has been doing reasonably well. She has experienced some aches and pains in the fingers and some of the other joints and it seems like it is getting more active at night. It can awaken her at night at times. She did do a recent course of steroids to calm this down. Her knees have been getting more achy even just in the sitting position and will be seeing a [facility] orthopedic surgeon to evaluate her hips. There are no new extra-articular manifestations of her arthritis. She has had ongoing dizziness on and off for the past few years and this has notchanged much since last visit. Otherwise the remainder of her general health has remained stable. Patient-Entered Data PAIN EVALUATION No data found in the last 1 encounters. PROMIS Assessments RAPID 3 Mullen Activities of Daily Living No Data Dress self? - Get in and out of bed? - Walk outdoors? - Wash and dry body? - Get in and out of car? - RAPID 3 Disease Activity Weighed Score Levels: 0 - 1: Near Remission 1.3 - 2.0: Low Severity 2.3 - 4.0: Moderate Severity 4.3 - 10.0: High Severity Review of Systems ROS RHEUMATOLOGYAll other reviewed and negative other than HPI. Past Medical History No past medical history on file. Past Surgical History No past surgical history on file. Family History No family history on file. Social History Social History Tobacco Use Smoking status: Never Smokeless tobacco: Never Current Medications Current Outpatient Medications Medication Sig meclizine (ANTIVERT) 25 mg tab Take 25 mg by mouth three times a day as needed. STELARA 90 mg/mL syringe INJECT 1 ML UNDER THE SKIN EVERY 3 MONTHS betamethasone dipropionate (DIPROSONE) 0.05 % cream APPLY ONE APPLICATION VIA EXTERNAL ROUTE TO AFFECTED AREA ONCE DAILY carvedilol (COREG) 12.5 mg tablet TAKE ONE TABLET BY MOUTH TWICE A DAY ( IN THE MORNING AND IN THE EVENING ) WITH FOOD HYDROcodone-Acetaminophen (NORCO) 10-325 mg per tablet Take 1 tablet by mouth twice daily as needed. morphine SR (MS CONTIN) 30 mg 12 hr tablet TAKE ONE TABLET BY MOUTH EVERY 12 HOURS -FILL ON 3111015 TROKENDI XR 100 mg capsule TROKENDI XR 200 mg capsule pravastatin (PRAVACHOL) 40 mg tablet TAKE ONE TABLET BY MOUTH DAILY FOR 90 DAYS SUMAtriptan (IMITREX) 100 mg tablet Take 100 mg by mouth. SUMAtriptan (IMITREX) 20 mg/actuation nasal spray Use 1 [place] in the nose every 2 hours as needed. cyanocobalamin (VITAMIN B-12) 100 mcg tab Take 100 mcg by mouth. ferrous sulfate 325 mg (65 mg iron) tablet Take 325 mg by mouth. cholecalciferol (VITAMIN D3) 400 unit tab Take 400 Units by mouth. duloxetine (CYMBALTA) 60 mg ORAL CpDR Take one(1) tablet daily. folic acid 1 mg ORAL Tab Take one (1) tablet daily. metaxalone (SKELAXIN) 800 mg ORAL Tab 1 tab 3 times per day No current facility-administered medications for this visit. Labs Imaging Last XR Hand/Finger - Impression Only No resulted procedures found. Last MRI Hand - Impression Only (more content not included)... [facility] 03-14-2025 History of Presen t illness Narrative Images from the original note were not included. Rheumatology Outpatient Clinic Date of Service: 03/14/2025 Patient: Alessandra Gray Medical Record: [id number] Primary Care Physician: Teto Tillman DO Last Rheumatology visit: 11/22/2024 (with Chda Lacy) History of Present Illness Alessandra Gray is a 65 year old White female who presents on 03/14/2025 for an in-person visit for evaluation of Psoriatic Arthritis. She is currently taking ustekinumab. HISTORY OF PRESENT ILLNESS This patient is well-known to me from my previous practice with [facility] with a history of psoriatic arthritis/seronegative rheumatoid arthritis. This patient has been on several different DMARDs and Biologics over the years. She has tried and failed methotrexate, Arava, Humira/Enbrel, Rituxan, Orencia, Actemra in the past. In the past year she has been on Stelara 45 mg dosage titrated to 90 mg dosage where she has achieved an very good clinical response. She was last seen in September 2021 was doing well and was due for her Stelara in November 2021 when she was unable to achieve prior authorization for the Stelara because I was between offices. She currently experiences stiffness and pain in the hands, wrists shoulders, knees, ankles and feet. She has now even had some right rib pain that is been moderately active. Generally she has done well without any new general medical issues from her other doctors. Meds tried/failed in the past: Methotrexate Leflunomide Humira/Enbrel Actemra Orencia Rituxan Xeljanz/Rinvoq INTERVAL HISTORY Patient returns for reevaluation and management of her psoriatic arthritis/rheumatoid arthritis. Since last visit the patient is main Stelara 90 mg subcutaneously once every 12 weeks. She continues to tolerate the Stelara well. Overall her psoriatic arthritis/rheumatoid arthritis has been doing reasonably well. She has experienced some aches and pains in the fingers and some of the other joints and it seems like it is getting more active at night. It can awaken her at night at times. She did do a recent course of steroids to calm this down. Her knees have been getting more achy even just in the sitting position and will be seeing a [facility] orthopedic surgeon to evaluate her hips. There are no new extra-articular manifestations of her arthritis. She has had ongoing dizziness on and off for the past few years and this has not changed much since last visit. Otherwise the remainder of her general health has remained stable. Patient-Entered Data PAIN EVALUATION No data found in the last 1 encounters. PROMIS Assessments RAPID 3 Mullen Activities of Daily Living No Data Dress self? - Get in and out of bed? - Walk outdoors? - Wash and dry body? - Get in and out of car? - RAPID 3 Disease Activity Weighed Score Levels: 0 - 1: Near Remission 1.3 - 2.0: Low Severity 2.3 - 4.0: Moderate Severity 4.3 - 10.0: High Severity Review of Systems ROS RHEUMATOLOGYAll other reviewed and negative other than HPI. Past Medical History No past medical history on file. Past Surgical History No past surgical history on file. Family History No family history on file. Social History Social History Tobacco Use Smoking status: Never Smokeless tobacco: Never Current Medications Current Outpatient Medications Medication Sig meclizine (ANTIVERT) 25 mg tab Take 25 mg by mouth three times a day as needed. STELARA 90 mg/mL syringe INJECT 1 ML UNDER THE SKIN EVERY 3 MONTHS betamethasone dipropionate (DIPROSONE) 0.05 % cream APPLY ONE APPLICATION VIA EXTERNAL ROUTE TO AFFECTED AREA ONCE DAILY carvedilol (COREG) 12.5 mg tablet TAKE ONE TABLET BY MOUTH TWICE A DAY ( IN THE MORNING AND IN THE EVENING ) WITH FOOD HYDROcodone-Acetaminophen (NORCO) 10-325 mg per tablet Take 1 tablet by mouth twice daily as needed. morphine SR (MS CONTIN) 30 mg 12 hr tablet TAKE ONE TABLET BY MOUTH EVERY 12 HOURS -FILL ON 3111015 TROKENDI XR 100 mg capsule TROKENDI XR 200 mg capsule pravastatin (PRAVACHOL) 40 mg tablet TAKE ONE TABLET BY MOUTH DAILY FOR 90 DAYS SUMAtriptan (IMITREX) 100 mg tablet Take 100 mg by mouth. SUMAtriptan (IMITREX) 20 mg/actuation nasal spray Use 1 [place] in the nose every 2 hours as needed. cyanocobalamin (VITAMIN B-12) 100 mcg tab Take 100 mcg by mouth. ferrous sulfate 325 mg (65 mg iron) tablet Take 325 mg by mouth. cholecalciferol (VITAMIN D3) 400 unit tab Take 400 Units by mouth. duloxetine (CYMBALTA) 60 mg ORAL CpDR Take one(1) tablet daily. folic acid 1 mg ORAL Tab Take one (1) tablet daily. metaxalone (SKELAXIN) 800 mg ORAL Tab 1 tab 3 times per day No current facility-administered medications for this visit. Labs Imaging Last XR Hand/Finger - Impression Only No resulted procedures found. Last MRI Hand - Impression Only No resulted procedures found. Last XR Chest - Impression Only No resulted procedures found. Last XR Cervical Spine - Impression Only No resulted procedures found. Health Maintenance Current Immunizations Reviewed on 12/03/2022 Name Date COVID-19 vaccine (MODERNA) 09/15/2023 COVID-19 vaccine, bivalent (MODERNA) 09/16/2022 COVID-19 vaccine, monovalent (MODERNA) 12/22/2021, 06/10/2021, 12/26/2020, 11/28/2020 influenza (IIV3) vaccine 05/20/2021, 04/26/2019 influenza (IIV4) vaccine 06/21/2022, 05/28/2020, 05/22/2020, 04/26/2019, 07/20/2018, 06/29/2017, 08/05/2015 influenza (RIV4) vaccine 05/30/2021 zoster (RZV) vaccine 04/26/2019, 01/13/2019 Physical Exam GENERAL APPEARANCE: Well groomed. Alert and oriented x 3. In no distress. VITAL SIGNS: BP 112/78 Pulse 73 Wt 171 lb 1.2 oz (77.6kg) SKIN: No rash, thickening, nodules, discoloration. EYES: PERRL, EOMI. No inflammation seen. HENT: External examination and palpation of the ears and nose normal. Lips, teeth, and gums normal. Oropharynx and tongue normal. No lesions or exudate. NECK: No mass or asymmetry. RESPIRATORY: Normal respiratory effort. Clear to auscultation and percussion. CARDIOVASCULAR: Heart RRR without gallop, murmur, or rub. No bruits across chest or neck. EXTREMITIES: Normal and equal pulses in all 4 extremities. No edema. ABDOMEN: BS normal. No bruits, No tenderness, mass, or hepatosplenomegaly. NEUROLOGIC: Sensory exam normal. MUSCULOSKELETAL EXAMINATION: Soft tissue tender points: None Motor exam: Normal 5+/5+ muscle strength. Normal bulk and tone. Cervical spine: No visible abnormalities. Full ROM. No tenderness to palpation. Thoracic spine: No visible abnormalities. No tenderness to palpation. Lumbar spine: No visible abnormalities. Full ROM. No tenderness to palpation. Joint Exam 03/14/2025 Right Left MCP 2 Tender Tender MCP 3 Tender Tender MCP 4 Tender Tender Hip Tender Knee Tender Tender The following joints were examined and normal: Left Sternoclavicular, Right Sternoclavicular, Left Acromioclavicular, Right Acromioclavicular, Left Glenohumeral, Right Glenohumeral, Left Elbow, Right Elbow, Left Wrist, Right Wrist, Left MCP 1, Right MCP 1, Left MCP 5, Right MCP 5, Left IP (thumb), Right IP (thumb), Left PIP 2 (finger), Right PIP 2 (finger), Left PIP 3 (finger), Right PIP 3 (finger), Left PIP 4 (finger), Right PIP 4 (finger), Left PIP 5 (finger), Right PIP 5 (finger), Left Ankle, Right Ankle, Left MTP 1, Right MTP 1, Left MTP 2, Right MTP 2, Left MTP 3, Right MTP 3, Left MTP 4, Right MTP 4, Left MTP 5, Right MTP 5 Joint Exam Data (across time) 03/14/2025 11/22/2024 07/25/2024 03/19/2024 11/14/2023 Joint Exam Total Tender 8 8 1 1 1 Total Swollen 0 0 0 0 0 Impression Diagnoses: (L40.50) Psoriatic arthritis (HCC) (primary encounter diagnosis) (M06.09) Rheumatoid arthritis of multiple sites with negative rheumatoid factor (HCC) (Z79.620) Long-term current use of ustekinumab (Z79.899) High risk medication use (M25.561, M25.562, G89.29) Chronic pain of both knees Plan Orders this visit: Office Visit on 03/14/25 COMPLETE BLOOD COUNT AND DIFFERENTIAL ALANINE AMINOTRANSFERASE / SGPT ASPARTATE AMINOTRANSFERASE/SGOT SEDIMENTATION RATE, WESTERGREN CREATININE BLD meclizine (ANTIVERT) 25 mg tab Discussed current status of her psoriatic arthritis/rheumatoid arthritis as modestly active with some recent flareups. We discussed her current treatment with Stelara 90 mg subcutaneously every 12 weeks has been a mainstay for a while. Presently her supply of Stelara is stable. She will need to apply for patient assistance again in February 2025. She had labs recently done at [facility] except new low platelets. Reviewed x-rays of the knees reveal very mild osteoarthritis changes Return in about 4 months (around 07/15/2025). I spent a total of 30 minutes on the date of the service which included preparing to see the patient, [id number] patient care, completing clinical documentation, obtaining and/or reviewing separately obtained history, performing a medically appropriate examination, counseling and educating the patient/family/caregiver, ordering medications, tests, or procedures, independently interpreting results (not separately reported), and communicating results to the patient/family/caregiver. Medical Decision Making: Problems: Moderate: 1+ chronic illnesses with change Data: Unique test result(s) reviewed: 3+ Unique test(s) ordered: 3+ Risk: High: High risk from testing/treatment Medical Decision Making Level: 4 - Moderate Chad Lacy MD Rheumatology Date: March 14, 2025 Time: 9:06 AM documented in this encounter [facility] 03-06-2025 Telephone encounter Note Received results of labs done on 03/04/2025 from [facility] (abnormal results in bold): wbc 4.0 3.4-10.8 Hgb 12.9 11.0-15.9 Hct 38.6 34.0-46.6 plt 132 150-450 MCV 101 79-97 MCH 33.9 26.6-33.0 sed rate 7 0-40 AST 1.19 0.57-1.00 ALT 22 15-59 Cr 1.19 0.57-1.00 Report sent for scanning. [facility] 03-06-2025 Miscellaneous Notes Received results of labs done on 03/04/2025 from [facility] (abnormal results in bold): wbc 4.0 3.4-10.8 Hgb 12.9 11.0-15.9 Hct 38.6 34.0-46.6 plt 132 150-450 MCV 101 79-97 MCH 33.9 26.6-33.0 sed rate 7 0-40 AST 1.19 0.57-1.00 ALT 22 15-59 Cr 1.19 0.57-1.00 Report sent for scanning. documented in this encounter [facility] 11-23-2024 Telephone encounter Note Faxed request for recent labs to [facility]. [facility] 11-23-2024 Miscellaneous Notes Faxed request for recent labs to [facility] lab. documented in this encounter [facility] 11-22-2024 Note HNO ID: [id number] Author: CHAD LACY MD Service: ? Author Type: Physician Type: Progress Notes Filed: 11/22/2024 09:59 Note Text: Rheumatology Outpatient Clinic Date of Service: 11/22/2024 Patient: Alessandra Gray Medical Record: [id number] Primary Care Physician: Teto Tillman DO Last Rheumatology visit: 07/25/2024 (with Chad Lacy) History of Present Illness Alessandra Gray is a 64 year old White female who presents on 11/22/2024 for an in-person visit for evaluation of Psoriatic Arthritis. She is currently taking ustekinumab. HISTORY OF PRESENT ILLNESS This patient is well-known to me from my previous practice with [facility] with a history of psoriatic arthritis/seronegative rheumatoid arthritis. This patient has been on several different DMARDs and Biologics over the years. She has tried and failed methotrexate, Arava, Humira/Enbrel, Rituxan, Orencia, Actemra in the past. In the past year she has been on Stelara 45 mg dosage titrated to 90 mg dosage where she has achieved an very good clinical response. She was last seen in September 2021 was doing well and was due for her Stelara in November 2021 when she was unable to achieve prior authorization for the Stelara because I was between offices. She currently experiences stiffness and pain in the hands, wrists shoulders, knees, ankles and feet. She has now even had some right rib pain that is been moderately active. Generally she has done well without any new general medical issues from her other doctors. Meds tried/failed in the past: Methotrexate Leflunomide Humira/Enbrel Actemra Orencia Rituxan Xeljanz/Rinvoq INTERVAL HISTORY Patient returns for reevaluation and management of her psoriatic arthritis/rheumatoid arthritis. Since last visit the patient is main Stelara 90 mg subcutaneously once every 12 weeks. She continues to tolerate the Stelara well. Overall her psoriatic arthritis/rheumatoid arthritis has been doing reasonably well. She has experienced some aches and pains in the fingers and some of the other joints. The colder weather has had a negative impact. Her knees have been getting more achy even just in the sitting position. She has also been referred to a [facility] orthopedic surgeon to evaluate her hips. There are no new extra-articular manifestations of her arthritis. She has had ongoing dizziness on and off for the past few years and this has not changed much since last visit. Otherwise the remainder of her general health has remained stable. Patient-Entered Data PAIN EVALUATION No data found in the last 1 encounters. PROMIS Assessments RAPID 3 [place]ullen Activities of Daily Living No Data Dress self? - Get in and out of bed? - Walk outdoors? - Wash and dry body? - Get in and out of car? - RAPID 3 Disease Activity Weighed Score Levels: 0 - 1: Near Remission 1.3 - 2.0: Low Severity 2.3 - 4.0: Moderate Severity 4.3 - 10.0: High Severity Review of Systems Review of Systems CONSTITUTION: Negative for: Weight loss or gain, Fever. Chills, Night sweats HEENT: Negative for: Nosebleeds, Mouth sores, Trouble swallowing, Dry mouth RESPIRATORY: Negative for: Cough, Shortness of breath, Pain with breathing, Coughing up blood GASTROINTESTINAL: Negative for: Melena, Diarrhea, Abdominal pain, Heartburn, MUSCULOSKELETAL: Positive for: Arthralgias and Morning Joint Stiffness Negative for: Myalgias, Muscle weakness and Joint swelling NEUROLOGICAL: Negative for: Headaches, Numbness, Memory loss, SKIN: Positive for: Skin changes Negative for: Rash, Sun Sensitive Rash, Hair loss and Nail changes EYES: Negative for: Eye pain, Eye redness, Visual disturbance, Eye dryness CARDIOVASCULAR: Negative for: Chest pain, Leg swelling, Arrhythmia, Presyncope GENITOURINARY: Negative for: Dysuria, Hematuria, Ulceration HEMATOLOGIC/LYMPHATIC: Negative for: Swollen glands All other reviewed and negative other than HPI. Past Medical History No past medical history on file. Past Surgical History No past surgical history on file. Family History No family history on file. Social History Social History Tobacco Use Smoking status: Never Smokeless tobacco: Never Current Medications Current Outpatient Medications Medication Sig STELARA 90 mg/mL syringe INJECT 1 ML UNDER THE SKIN EVERY 3 MONTHS betamethasone dipropionate (DIPROSONE) 0.05 % cream APPLY ONE APPLICATION VIA EXTERNAL ROUTE TO AFFECTED AREA ONCE DAILY carvedilol (COREG) 12.5 mg tablet TAKE ONE TABLET BY MOUTH TWICE A DAY ( IN THE MORNING AND IN THE EVENING ) WITH FOOD HYDROcodone-Acetaminophen (NORCO) 10-325 mg per tablet Take 1 tablet by mouth twice daily as needed. morphine SR (MS CONTIN) 30 mg 12 hr tablet TAKE ONE TABLET BY MOUTH EVERY 12 HOURS -FILL ON 3111015 TROKENDI XR 100 mg capsule TROKENDI XR 200 mg capsule pravastatin (PRAVACHOL) 40 mg tablet TAKE ONE TABLET BY MOUTH DAILY FOR (more content not included)... [facility] 11-22-2024 History of Presen t illness Narrative Images from the original note were not included. Rheumatology Outpatient Clinic Date of Service: 11/22/2024 Patient: Alessandra Gray Medical Record: [id number] Primary Care Physician: Teto Tillman DO Last Rheumatology visit: 07/25/2024 (with Chad Lacy) History of Present Illness Alessandra Gray is a 64 year old White female who presents on 11/22/2024 for an in-person visit for evaluation of Psoriatic Arthritis. She is currently taking ustekinumab. HISTORY OF PRESENT ILLNESS This patient is well-known to me from my previous practice with [facility] with a history of psoriatic arthritis/seronegative rheumatoid arthritis. This patient has been on several different DMARDs and Biologics over the years. She has tried and failed methotrexate, Arava, Humira/Enbrel, Rituxan, Orencia, Actemra in the past. In the past year she has been on Stelara 45 mg dosage titrated to 90 mg dosage where she has achieved an very good clinical response. She was last seen in September 2021 was doing well and was due for her Stelara in November 2021 when she was unable to achieve prior authorization for the Stelara because I was between offices. She currently experiences stiffness and pain in the hands, wrists shoulders, knees, ankles and feet. She has now even had some right rib pain that is been moderately active. Generally she has done well without any new general medical issues from her other doctors. Meds tried/failed in the past: Methotrexate Leflunomide Humira/Enbrel Actemra Orencia Rituxan Xeljanz/Rinvoq INTERVAL HISTORY Patient returns for reevaluation and management of her psoriatic arthritis/rheumatoid arthritis. Since last visit the patient is main Stelara 90 mg subcutaneously once every 12 weeks. She continues to tolerate the Stelara well. Overall her psoriatic arthritis/rheumatoid arthritis has been doing reasonably well. She has experienced some aches and pains in the fingers and some of the other joints. The colder weather has had a negative impact. Her knees have been getting more achy even just in the sitting position. She has also been referred to a [facility] orthopedic surgeon to evaluate her hips. There are no new extra-articular manifestations of her arthritis. She has had ongoing dizziness on and off for the past few years and this has not changed much since last visit. Otherwise the remainder of her general health has remained stable. Patient-Entered Data PAIN EVALUATION No data found in the last 1 encounters. PROMIS Assessments RAPID 3 Mullen Activities of Daily Living No Data Dress self? - Get in and out of bed? - Walk outdoors? - Wash and dry body? - Get in and out of car? - RAPID 3 Disease Activity Weighed Score Levels: 0 - 1: Near Remission 1.3 - 2.0: Low Severity 2.3 - 4.0: Moderate Severity 4.3 - 10.0: High Severity Review of Systems Review of Systems CONSTITUTION: Negative for: Weight loss or gain, Fever. Chills, Night sweats HEENT: Negative for: Nosebleeds, Mouth sores, Trouble swallowing, Dry mouth RESPIRATORY: Negative for: Cough, Shortness of breath, Pain with breathing, Coughing up blood GASTROINTESTINAL: Negative for: Melena, Diarrhea, Abdominal pain, Heartburn, MUSCULOSKELETAL: Positive for: Arthralgias and Morning Joint Stiffness Negative for: Myalgias, Muscle weakness and Joint swelling NEUROLOGICAL: Negative for: Headaches, Numbness, Memory loss, SKIN: Positive for: Skin changes Negative for: Rash, Sun Sensitive Rash, Hair loss and Nail changes EYES: Negative for: Eye pain, Eye redness, Visual disturbance, Eye dryness CARDIOVASCULAR: Negative for: Chest pain, Leg swelling, Arrhythmia, Presyncope GENITOURINARY: Negative for: Dysuria, Hematuria, Ulceration HEMATOLOGIC/LYMPHATIC: Negative for: Swollen glands All other reviewed and negative other than HPI. Past Medical History No past medical history on file. Past Surgical History No past surgical history on file. Family History No family history on file. Social History Social History Tobacco Use Smoking status: Never Smokeless tobacco: Never Current Medications Current Outpatient Medications Medication Sig STELARA 90 mg/mL syringe INJECT 1 ML UNDER THE SKIN EVERY 3 MONTHS betamethasone dipropionate (DIPROSONE) 0.05 % cream APPLY ONE APPLICATION VIA EXTERNAL ROUTE TO AFFECTED AREA ONCE DAILY carvedilol (COREG) 12.5 mg tablet TAKE ONE TABLET BY MOUTH TWICE A DAY ( IN THE MORNING AND IN THE EVENING ) WITH FOOD HYDROcodone-Acetaminophen (NORCO) 10-325 mg per tablet Take 1 tablet by mouth twice daily as needed. morphine SR (MS CONTIN) 30 mg 12 hr tablet TAKE ONE TABLET BY MOUTH EVERY 12 HOURS -FILL ON 3111015 TROKENDI XR 100 mg capsule TROKENDI XR 200 mg capsule pravastatin (PRAVACHOL) 40 mg tablet TAKE ONE TABLET BY MOUTH DAILY FOR 90 DAYS SUMAtriptan (IMITREX) 100 mg tablet Take 100 mg by mouth. SUMAtriptan (IMITREX) 20 mg/actuation nasal spray Use 1 [place] in the nose every 2 hours as needed. cyanocobalamin (VITAMIN B-12) 100 mcg tab Take 100 mcg by mouth. ferrous sulfate 325 mg (65 mg iron) tablet Take 325 mg by mouth. cholecalciferol (VITAMIN D3) 400 unit tab Take 400 Units by mouth. duloxetine (CYMBALTA) 60 mg ORAL CpDR Take one(1) tablet daily. folic acid 1 mg ORAL Tab Take one (1) tablet daily. metaxalone (SKELAXIN) 800 mg ORAL Tab 1 tab 3 times per day No current facility-administered medications for this visit. Labs Imaging Last XR Hand/Finger - Impression Only No resulted procedures found. Last MRI Hand - Impression Only No resulted procedures found. Last XR Chest - Impression Only No resulted procedures found. Last XR Cervical Spine - Impression Only No resulted procedures found. Health Maintenance Current Immunizations Reviewed on 12/03/2022 Name Date COVID-19 vaccine (MODERNA) 09/15/2023 COVID-19 vaccine, bivalent (MODERNA) 09/16/2022 COVID-19 vaccine, monovalent (MODERNA) 12/22/2021, 06/10/2021, 12/26/2020, 11/28/2020 influenza (IIV3) vaccine 05/20/2021, 04/26/2019 influenza (IIV4) vaccine 06/21/2022, 05/28/2020, 05/22/2020, 04/26/2019, 07/20/2018, 06/29/2017, 08/05/2015 influenza (RIV4) vaccine 05/30/2021 zoster (RZV) vaccine 04/26/2019, 01/13/2019 Physical Exam GENERAL APPEARANCE: Well groomed. Alert and oriented x 3. In no distress. VITAL SIGNS: BP 112/78 Pulse 81 Resp 16 Wt 171 lb (77.6kg) SKIN: No rash, thickening, nodules, discoloration. EYES: PERRL, EOMI. No inflammation seen. HENT: External examination and palpation of the ears and nose normal. Lips, teeth, and gums normal. Oropharynx and tongue normal. No lesions or exudate. NECK: No mass or asymmetry. RESPIRATORY: Normal respiratory effort. Clear to auscultation and percussion. CARDIOVASCULAR: Heart RRR without gallop, murmur, or rub. No bruits across chest or neck. EXTREMITIES: Normal and equal pulses in all 4 extremities. No edema. ABDOMEN: BS normal. No bruits, No tenderness, mass, or hepatosplenomegaly. NEUROLOGIC: Sensory exam normal. MUSCULOSKELETAL EXAMINATION: Soft tissue tender points: None Motor exam: Normal 5+/5+ muscle strength. Normal bulk and tone. Cervical spine: No visible abnormalities. Full ROM. No tenderness to palpation. Thoracic spine: No visible abnormalities. No tenderness to palpation. Lumbar spine: No visible abnormalities. Full ROM. No tenderness to palpation. Joint Exam 11/22/2024 Right Left MCP 2 Tender Tender MCP 3 Tender Tender MCP 4 Tender Tender Hip Tender Knee Tender Tender The following joints were examined and normal: Left Sternoclavicular, Right Sternoclavicular, Left Acromioclavicular, Right Acromioclavicular, Left Glenohumeral, Right Glenohumeral, Left Elbow, Right Elbow, Left Wrist, Right Wrist, Left MCP 1, Right MCP 1, Left MCP 5, Right MCP 5, Left IP (thumb), Right IP (thumb), Left PIP 2 (finger), Right PIP 2 (finger), Left PIP 3 (finger), Right PIP 3 (finger), Left PIP 4 (finger), Right PIP 4 (finger), Left PIP 5 (finger), Right PIP 5 (finger), Left Ankle, Right Ankle, Left MTP 1, Right MTP 1, Left MTP 2, Right MTP 2, Left MTP 3, Right MTP 3, Left MTP 4, Right MTP 4, Left MTP 5, Right MTP 5 Joint Exam Data (across time) 11/22/2024 07/25/2024 03/19/2024 11/14/2023 07/14/2023 Joint Exam Total Tender 8 1 1 1 3 Total Swollen 0 0 0 0 0 Impression Diagnoses: (L40.50) Psoriatic arthritis (HCC) (primary encounter diagnosis) (M06.09) Rheumatoid 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 We discussed her current treatment with Stelara 90 mg subcutaneously every 12 weeks has been a mainstay for a while. Presently her supply of Stelara is stable. She will need to apply for patient assistance again in February 2025. She had labs recently done at [facility] locally in [place] unfortunately these results did not make it to us. Patient verbally tells me they were all stable. We will reach out to [facility] to get these results sent to us. I have written orders for her labs to be obtained prior to next visit. I wrote for x-rays of the knees to be done outside x-ray facility to evaluate for degree of osteoarthritis changes compared to her psoriatic/rheumatoid arthritis. Return in about 4 months (around 03/24/2025). I spent a total of 30 minutes on the date of the service which included preparing to see the patient, [id number] patient care, completing clinical documentation, obtaining and/or reviewing separately obtained history, performing a medically appropriate examination, counseling and educating the patient/family/caregiver, and ordering medications, tests, or procedures. Medical Decision Making: Problems: Moderate: 1+ chronic illnesses with change Data: Unique test(s) ordered: 3+ Risk: High: High risk from testing/treatment Medical Decision Making Level: 4 - Moderate Chad Lacy MD Rheumatology Date: November 22, 2024 Time: 9:30 AM documented in this encounter [facility] 10-15-2024 Telephone encounter Note Most recent Rheumatology visit: 07/25/2024 (with Chad Lacy) Last Bone Density on file: None on file Rheumatology Care Team: None on file Recent Office Visits - This Specialty 07/25/2024 Psoriatic arthritis (HCC) Rheumatology Chad Lacy MD 03/19/2024 Psoriatic arthritis (HCC) Rheumatology Chad Lacy MD 11/14/2023 Rheumatoid arthritis of multiple sites with negative rheumatoid factor (HCC) Rheumatology Chad Lacy MD Upcoming Rheumatology Appointments - Next 365 Days Visit Type Date Time Department [facility] 11/22/2024 9:40 AM [facility] CBC: None on file in the last 6 months Vitamin D: None on file in the last 6 months LFT: None on file in the last 6 months Hepatic Function: Creatinine: None on file in the last 6 months ESR/CRP: None on file in the last 6 months Uric Acid: None on file in the last 6 months Open Standing (Multiple Instance) Lab Orders None Open Future (Single Instance) Lab Orders Expected Expires Ordered COMPLETE BLOOD COUNT AND DIFFERENTIAL [SQCBCDIF] 07/25/24 10/24/24 07/25/24 Auth. provider: Chad Lacy MD Assoc. diagnoses: Psoriatic arthritis (HCC), High risk medication use ALANINE AMINOTRANSFERASE / SGPT [SQALT] 07/25/24 10/24/24 07/25/24 Auth. provider: Chad Lacy MD Assoc. diagnoses: Psoriatic arthritis (HCC), High risk medication use ASPARTATE AMINOTRANSFERASE/SGOT [SQAST] 07/25/24 10/24/24 07/25/24 Auth. provider: Chad Lacy MD Assoc. diagnoses: Psoriatic arthritis (HCC), High risk medication use SEDIMENTATION RATE, WESTERGREN [SQWSR] 07/25/24 10/24/24 07/25/24 Auth. provider: Chad Lacy MD Assoc. diagnoses: Psoriatic arthritis (HCC), High risk medication use CREATININE BLD [SQCRET] 07/25/24 10/24/24 07/25/24 Auth. provider: Chad Lacy MD Assoc. diagnoses: Psoriatic arthritis (HCC), High risk medication use [facility] 10-15-2024 Miscellaneous Notes Most recent Rheumatology visit: 07/25/2024 (with Chad Lacy) Last Bone Density on file: None on file Rheumatology Care Team: None on file Recent Office Visits - This Specialty 07/25/2024 Psoriatic arthritis (HCC) Rheumatology Chad Lacy MD 03/19/2024 Psoriatic arthritis (HCC) Rheumatology Chad Lacy MD 11/14/2023 Rheumatoid arthritis of multiple sites with negative rheumatoid factor (HCC) Rheumatology Chad Lacy MD Upcoming Rheumatology Appointments - Next 365 Days Visit Type Date Time Department [facility] 11/22/2024 9:40 AM [facility] RE[facility] CBC: None on file in the last 6 months Vitamin D: None on file in the last 6 months LFT: None on file in the last 6 months Hepatic Function: Creatinine: None on file in the last 6 months ESR/CRP: None on file in the last 6 months Uric Acid: None on file in the last 6 months Open Standing (Multiple Instance) Lab Orders None Open Future (Single Instance) Lab Orders Expected Expires Ordered COMPLETE BLOOD COUNT AND DIFFERENTIAL [SQCBCDIF] 07/25/24 10/24/24 07/25/24 Auth. provider: Chad Lacy MD Assoc. diagnoses: Psoriatic arthritis (HCC), High risk medication use ALANINE AMINOTRANSFERASE / SGPT [SQALT] 07/25/24 10/24/24 07/25/24 Auth. provider: Chad Lacy MD Assoc. diagnoses: Psoriatic arthritis (HCC), High risk medication use ASPARTATE AMINOTRANSFERASE/SGOT [SQAST] 07/25/24 10/24/24 07/25/24 Auth. provider: Chad Lacy MD Assoc. diagnoses: Psoriatic arthritis (HCC), High risk medication use SEDIMENTATION RATE, WESTERGREN [SQWSR] 07/25/24 10/24/24 07/25/24 Auth. provider: Chad Lacy MD Assoc. diagnoses: Psoriatic arthritis (HCC), High risk medication use CREATININE BLD [SQCRET] 07/25/24 10/24/24 07/25/24 Auth. provider: Chad Lacy MD Assoc. diagnoses: Psoriatic arthritis (HCC), High risk medication use documented in this encounter [facility] 09-26-2024 History of Presen t illness Narrative Images from the original note were not included. HISTORY OF PRESENT ILLNESS: EST PT Alessandra Gray is an 64 y.o. @ female. EST PT (WITH LASHONDA/ROBERTO) - HERE FOR MRI RESULTS IN [facility] (RT HIP W/ AND W/O CONTRAST) ON 08/31/24 XRAY RT HIP IN [facility] 08/13/24 MRI RT HIP W/ AND W/O 08/31/24 CORTISONE INJ PER PAIN MANAGEMENT 12/03 NO MDP / PREDNISONE [facility]. MERLIN [employer]) NOTES CONSTANT DULL AND INTERMITTENT SHARP SHOOTING PAIN THAT RADIATES TO KNEE, RADIATES ANTERIOR TO GROIN AND POSTERIOR TO BUTTOCKS. DENIES SWELLING. NOTICES HER FOOT DRAGS WHEN WALKING. INTERMITTENT N/T DOWN LEG. FULL ROM. NOTES POPPING, WEAKNESS, GIVING OUT. DENIES GRINDING. WAKES HS. TAKES MORPHINE 30MG 2X DAILY, NORCO 10-325MG DAILY FOR ARTHRITIS/PAIN. DOES HOME STRETCHING, USES INVERSION TABLE. ALLERGIES: Allergies Allergen Reactions Aspirin Anaphylaxis and Unknown According to pt. Clarithromycin Unknown Swelling of lips and tongue Pineapple Anaphylaxis Bee Venom Unknown Cefaclor Swelling Erythromycin Angioedema and Unknown Hives, tongue swelling Nsaids Angioedema and Swelling Pt states her tongue and throat swell with all nsaids. Omeprazole Unknown and Swelling Pt states she had esophageal spasms. Penicillins Angioedema, Swelling and Unknown Tongue swelling Sulfa Antibiotics Angioedema, Swelling and Unknown HOME MEDICATIONS: Current Outpatient Medications Medication Instructions carvedilol (Coreg) 12.5 MG tablet TAKE ONE TABLET BY MOUTH TWICE A DAY ( IN THE MORNING AND IN THE EVENING ) WITH FOOD cholecalciferol (VITAMIN D-3) 400 Units cyanocobalamin (VITAMIN B-12) 100 mcg diclofenac sodium 2 g DULoxetine (CYMBALTA) 60 mg, Daily ferrous sulfate 325 mg folic acid (Folvite) 1 MG tablet Every 24 hours HYDROcodone-acetaminophen ([place]) 10-325 MG tablet ONE TAB 2 TIMES A DAY NEEDED; FILL ON [id number] Lactobacillus Acid-Pectin (Acidophilus/[place] Pectin) tablet Take by mouth lidocaine (Lidoderm) 5 % patch 1 patch, Every 24 hours metaxalone (Skelaxin) 800 MG tablet TAKE 12 TO 1 TABLET BY MOUTH THREE TIMES A DAY NEEDED Methylcobalamin (X62-Uezxsy) 1 MG chewable tablet as directed Orally morphine CR (MS CONTIN) 30 mg, Every 12 hours pravastatin (PRAVACHOL) 40 mg, Daily SUMAtriptan (IMITREX) 100 mg, Once as needed SUMAtriptan (IMITREX) 20 mg, See admin instructions Trokendi XR 100 MG capsule sustained-release 24 hr Take by mouth Trokendi XR 200 MG capsule sustained-release 24 hr 1 capsule, Daily ustekinumab (Stelara) injection INJECT 1 ML UNDER THE SKIN EVERY 3 MONTHS PHYSICAL EXAM: Hip Musculoskeletal Exam Gait Antalgic: right Inspection Leg length disparity: no discrepancy Right Erythema: none Ecchymosis: none Edema: none Deformity: none Left Erythema: none Ecchymosis: none Edema: none Deformity: none Palpation Right Increased warmth: none Tenderness: present Greater trochanteric region pain: mild Pubic rami pain: mild Lower lumbar region pain: mild Left Increased warmth: none Tenderness: present Greater trochanteric region pain: mild Pubic rami pain: mild Lower lumbar region pain: mild Range of Motion Right Right hip range of motion is within functional limits. Active ROM: pain. Passive ROM: pain. Active extension: 20. Passive extension: 20. Active flexion: 90. Passive flexion: 90. Active internal rotation: 10. Passive internal rotation: 10. Active external rotation: 25. Passive external rotation: 25. Active adduction: 10. Passive adduction: 10. Active abduction: 20. Passive abduction: 20. Left Active ROM: pain. Passive ROM: pain. Active extension: 20. Passive extension: 20. Active flexion: 90. Passive flexion: 90. Active internal rotation: 10. Passive internal rotation: 10. Active external rotation: 25. Passive external rotation: 25. Active adduction: 10. Passive adduction: 10. Active abduction: 20. Passive abduction: 20. Range of motion additional comments: Terminal motion on IR and ER limited by pain Bilaterally Strength Right Right hip strength is normal. Extension: 5/5. Flexion: 4+/5. Flexion is affected by pain. Internal rotation: 5/5. External rotation: 5/5. Adduction: 5/5. Abduction: 4+/5. Abduction is affected by pain. Left Left hip strength is normal. Extension: 5/5. Flexion: 4+/5. Flexion is affected by pain. Internal rotation: 5/5. External rotation: 5/5. Adduction: 5/5. Abduction: 4+/5. Abduction is affected by pain. Neurovascular Right Right hip neurovascular exam is normal. Pulses - PT: normal Posterior tibial: 2+ Left Pulses - PT: normal Posterior tibial: 2+ Special Tests Right Log roll test: positive Left Log roll test: positive General Constitutional: appears stated age Labored breathing: no Psychiatric: normal mood and affect Neurological: alert and oriented x3 Skin: intact Lymphadenopathy: none Vitals: There is no height or weight on file to calculate BMI. Tobacco Use: Low Risk (09/26/2024) Patient History Smoking Tobacco Use: Never Smokeless Tobacco Use: Never Passive Exposure: Not on file Alcohol Use: Not on file IMAGING: Procedures Orders Placed This Encounter Procedures Ambulatory referral to Orthopaedic Surgery B/L HIP AVN. PLEASE CONTACT PT TO SCHEDULE. Standing Status: Future Standing Expiration Date: 03/26/2025 Referral Priority: Routine Referral Type: Consultation Referral Reason: Specialty Services Required Referred to Provider: Darin Landeros MD Requested Specialty: Orthopaedic Surgery Number of Visits Requested: 1 ASSESSMENT: ICD-10-CM 1. Avascular necrosis of bone of right hip (CMS/HCC) M87.051 Ambulatory referral to Orthopaedic Surgery 2. Avascular necrosis of bone of left hip (CMS/HCC) M87.052 Ambulatory referral to Orthopaedic Surgery 3. Right hip pain M25.551 4. Left hip pain M25.552 PLAN: MRI shows bilateral hip AVN without collapse. We have discussed her MRI results and her physical exam with her and her at length. She has been on morphine 30 mg daily for at least 30 years. In addition to [place] 2-3 times a day for years . She has no evidence of collapse on today's MRI. We are sending her to clinic clinic for definitive treatment for AVN bilateral hips without collapse. We'll see her back when necessary. Questions answered in laymen terms at the bedside. The diagnosis, home exercise plan and any ongoing restrictions/ recommendations reviewed. If unable to be reached in office, I recommend evaluation at nearest Emergency Room if any symptoms worsened or new symptoms develop for requiring urgent evaluation. documented in this encounter [facility] 08-27-2024 Telephone encounter Note Called pt and informed her and gave her the number to the [facility] imaging to call them to see if they have order and if she can schedule. [facility] 08-27-2024 Miscellaneous Notes Called pt and informed her and gave her the number to the [facility] imaging to call them to see if they have order and if she can schedule. Called and talked to Hope at [facility]. She said the earliest they could do for MRI hip w and w/o would be Tuesday. Will send referral for [facility] imaging instead. I re-faxed order and notes to [facility]. They might be waiting on approval from insurance still. She could call them at [phone] and see if she can schedule yet. Pt called and left vm stated she saw Lashonda on 08/13/24 for Rt hip and she was suppose to get an MRI [facility] and she has not heard from anyone yet to schedule this. Please advise. Her call back [phone] documented in this encounter [facility] 08-22-2024 Telephone encounter Note Called and talked to Jaylin at [facility]. She said the earliest they could do for MRI hip w and w/o would be Tuesday. Will send referral for [facility] instead. [facility] 08-21-2024 Telephone encounter Note I re-faxed order and notes to [facility]. They might be waiting on approval from insurance still. She could call them at [phone] and see if she can schedule yet. [facility] 08-21-2024 Telephone encounter Note Pt called and left vm stated she saw Lashonda on 08/13/24 for Rt hip and she was suppose to get an MRI [facility] and she has not heard from anyone yet to schedule this. Please advise. Her call back [phone] [facility] 08-13-2024 History of Presen t illness Narrative Images from the original note were not included. Subjective Patient ID: Alessandra Gray is a 64 y.o. female. RT hip pain x 11 months, 09/2023, NKI. Continues getting worse. Hx RT hip steroid injection, thinks 11/2023. Dr Steel pain management at [place]. Injection only lasted about 1 1/2 weeks. 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 Pain is pretty constant. Occas radiates down leg, most of the time it goes all the way down her leg. Does notice she drags her foot at times. On morphine and taking hydrocodone (for back). Has tried multiple topicals, no relief. Occas N/T down leg. Denies swelling. Admits popping. Denies grinding. Admits giving out, feels unstable. Wakes pt at HS, typically goes down and sits on the couch after so long. Does stretches and HEP. Also uses inversion table. [place]: XR [facility] 08/13/24, steroid injection pain management 11/2023, morphine, hydrocodone, topicals, stretching, HEP, inversion table Objective Right Hip Exam Muscle Strength Adduction: 4/5 Tests CHINMAY: positive Left Hip Exam Muscle Strength Adduction: 4/5 Hip Musculoskeletal Exam Gait Limp: right Palpation Right Tenderness: present Greater trochanteric region pain: mild Lower lumbar region pain: mild Range of Motion Right Active ROM: pain. Active internal rotation: 25. Active external rotation: 25. Strength Right Adduction: 4/5. Abduction: 4/5. Left Adduction: 4/5. Abduction: 4/5. Special Tests Right CHINMAY test (right): positive Impingement test: positive Trendelenburg test: negative XR hip right 2 or 3 views Imaging Result: AP and lateral of right hip showed femoral head to be well centered in the acetabulum without evidence of fracture or dislocation. There was some spurring at the inferior medial aspect of the femoral acetabular junction. There was global decrease in joint space height. There was no acute bony process including but not limited to, fracture and/or dislocation. Impression mild degenerative joint disease, right hip Assessment/Plan Encounter Diagnoses: ICD-10-CM 1. Right hip pain M25.551 XR hip right 2 or 3 views 2. Avascular necrosis of bone of right hip (CMS/[facility]) M87.051 MR hip right w and wo IV contrast Creatinine, Serum Creatinine, Serum discussion of due to failure of conservative treatment and AVN would recommend an MRI of the right hip with and without contrast, activities as tolerated to be done at [facility]/ s/p MRI documented in this encounter [facility] 07-25-2024 Note HNO ID: [id number] Author: CHAD LACY MD Service: ? Author Type: Physician Type: Progress Notes Filed: 07/25/2024 10:13 Note Text: Rheumatology Outpatient Clinic Date of Service: 07/25/2024 Patient: Alessandra Gray Medical Record: [id number] Primary Care Physician: Teto Tillman DO Last Rheumatology visit: 03/19/2024 (with Chad Lacy) History of Present Illness Alessandra Gray is a 64 year old White female who presents on 07/25/2024 for an in-person visit for evaluation of Psoriatic Arthritis. She is currently taking ustekinumab. HISTORY OF PRESENT ILLNESS This patient is well-known to me from my previous practice with [facility] with a history of psoriatic arthritis/seronegative rheumatoid arthritis. This patient has been on several different DMARDs and Biologics over the years. She has tried and failed methotrexate, Arava, Humira/Enbrel, Rituxan, Orencia, Actemra in the past. In the past year she has been on Stelara 45 mg dosage titrated to 90 mg dosage where she has achieved an very good clinical response. She was last seen in September 2021 was doing well and was due for her Stelara in November 2021 when she was unable to achieve prior authorization for the Stelara because I was between offices. She currently experiences stiffness and pain in the hands, wrists shoulders, knees, ankles and feet. She has now even had some right rib pain that is been moderately active. Generally she has done well without any new general medical issues from her other doctors. Meds tried/failed in the past: Methotrexate Leflunomide Humira/Enbrel Actemra Orencia Rituxan Xeljanz/Rinvoq INTERVAL HISTORY Patient returns for reevaluation and management of her psoriatic arthritis/rheumatoid arthritis. Since last visit the patient is main Stelara 90 mg subcutaneously once every 12 weeks. She continues to tolerate the Stelara well. Overall her psoriatic arthritis/rheumatoid arthritis has been doing reasonably well. There was a delay in getting the Stelara and she started to flare and utilized a Medrol Dosepak which got her through the rough spot. She has been able to resume the Stelara and has limited joint pain presently. There are no new extra-articular manifestations of her arthritis. She has had ongoing dizziness on and off for the past few years. She also had an episode of chest pain which really was not pursued aggressively by her PCP. Otherwise the remainder of her general health has remained stable. Patient-Entered Data PAIN EVALUATION 07/25/2024 0945 Pain Level: 2 Pain Location: Other: See Comment Level of pain 2 in right hip and lower back PROMIS Assessments RAPID 3 Mullen Activities of Daily Living No Data Dress self? - Get in and out of bed? - Walk outdoors? - Wash and dry body? - Get in and out of car? - RAPID 3 Disease Activity Weighed Score Levels: 0 - 1: Near Remission 1.3 - 2.0: Low Severity 2.3 - 4.0: Moderate Severity 4.3 - 10.0: High Severity Review of Systems Review of Systems CONSTITUTION: Negative for: Weight loss or gain, Fever. Chills, Night sweats HEENT: Negative for: Nosebleeds, Mouth sores, Trouble swallowing, Dry mouth RESPIRATORY: Negative for: Cough, Shortness of breath, Pain with breathing, Coughing up blood GASTROINTESTINAL: Negative for: Melena, Diarrhea, Abdominal pain, Heartburn, MUSCULOSKELETAL: Positive for: Arthralgias and Morning Joint Stiffness Negative for: Myalgias, Muscle weakness and Joint swelling NEUROLOGICAL: Negative for: Headaches, Numbness, Memory loss, SKIN: Positive for: Skin changes Negative for: Rash, Sun Sensitive Rash, Hair loss and Nail changes EYES: Negative for: Eye pain, Eye redness, Visual disturbance, Eye dryness CARDIOVASCULAR: Positive for: Chest pain Negative for: Leg swelling GENITOURINARY: Negative for: Dysuria, Hematuria, Ulceration HEMATOLOGIC/LYMPHATIC: Negative for: Swollen glands All other reviewed and negative other than HPI. Past Medical History No past medical history on file. Past Surgical History No past surgical history on file. Family History No family history on file. Social History Social History Tobacco Use Smoking status: Never Smokeless tobacco: Never Current Medications Current Outpatient Medications Medication Sig ustekinumab (STELARA) 90 mg/mL injection INJECT 1 ML UNDER THE SKIN EVERY 3 MONTHS betamethasone dipropionate (DIPROSONE) 0.05 % cream APPLY ONE APPLICATION VIA EXTERNAL ROUTE TO AFFECTED AREA ONCE DAILY carvedilol (COREG) 12.5 mg tablet TAKE ONE TABLET BY MOUTH TWICE A DAY ( IN THE MORNING AND IN THE EVENING ) WITH FOOD HYDROcodone-Acetaminophen (NORCO) 10-325 mg per tablet Take 1 tablet by mouth twice daily as needed. morphine SR (MS CONTIN) 30 mg 12 hr tablet TAKE ONE TABLET BY MOUTH EVERY 12 HOURS -FILL ON 3111015 TROKENDI XR 100 mg capsule TROKENDI XR 200 mg capsule pravastatin (PRAVACHOL) 40 mg (more content not included)... [facility] 07-25-2024 History of Presen t illness Narrative Images from the original note were not included. Rheumatology Outpatient Clinic Date of Service: 07/25/2024 Patient: Alessandra Gray Medical Record: [id number] Primary Care Physician: Teto Tillman DO Last Rheumatology visit: 03/19/2024 (with Chad Lacy) History of Present Illness Alessandra Gray is a 64 year old White female who presents on 07/25/2024 for an in-person visit for evaluation of Psoriatic Arthritis. She is currently taking ustekinumab. HISTORY OF PRESENT ILLNESS This patient is well-known to me from my previous practice with [facility] with a history of psoriatic arthritis/seronegative rheumatoid arthritis. This patient has been on several different DMARDs and Biologics over the years. She has tried and failed methotrexate, Arava, Humira/Enbrel, Rituxan, Orencia, Actemra in the past. In the past year she has been on Stelara 45 mg dosage titrated to 90 mg dosage where she has achieved an very good clinical response. She was last seen in September 2021 was doing well and was due for her Stelara in November 2021 when she was unable to achieve prior authorization for the Stelara because I was between offices. She currently experiences stiffness and pain in the hands, wrists shoulders, knees, ankles and feet. She has now even had some right rib pain that is been moderately active. Generally she has done well without any new general medical issues from her other doctors. Meds tried/failed in the past: Methotrexate Leflunomide Humira/Enbrel Actemra Orencia Rituxan Xeljanz/Rinvoq INTERVAL HISTORY Patient returns for reevaluation and management of her psoriatic arthritis/rheumatoid arthritis. Since last visit the patient is main Stelara 90 mg subcutaneously once every 12 weeks. She continues to tolerate the Stelara well. Overall her psoriatic arthritis/rheumatoid arthritis has been doing reasonably well. There was a delay in getting the Stelara and she started to flare and utilized a Medrol Dosepak which got her through the rough spot. She has been able to resume the Stelara and has limited joint pain presently. There are no new extra-articular manifestations of her arthritis. She has had ongoing dizziness on and off for the past few years. She also had an episode of chest pain which really was not pursued aggressively by her PCP. Otherwise the remainder of her general health has remained stable. Patient-Entered Data PAIN EVALUATION 07/25/2024 0945 Pain Level: 2 Pain Location: Other: See Comment Level of pain 2 in right hip and lower back PROMIS Assessments RAPID 3 Mullen Activities of Daily Living No Data Dress self? - Get in and out of bed? - Walk outdoors? - Wash and dry body? - Get in and out of car? - RAPID 3 Disease Activity Weighed Score Levels: 0 - 1: Near Remission 1.3 - 2.0: Low Severity 2.3 - 4.0: Moderate Severity 4.3 - 10.0: High Severity Review of Systems Review of Systems CONSTITUTION: Negative for: Weight loss or gain, Fever. Chills, Night sweats HEENT: Negative for: Nosebleeds, Mouth sores, Trouble swallowing, Dry mouth RESPIRATORY: Negative for: Cough, Shortness of breath, Pain with breathing, Coughing up blood GASTROINTESTINAL: Negative for: Melena, Diarrhea, Abdominal pain, Heartburn, MUSCULOSKELETAL: Positive for: Arthralgias and Morning Joint Stiffness Negative for: Myalgias, Muscle weakness and Joint swelling NEUROLOGICAL: Negative for: Headaches, Numbness, Memory loss, SKIN: Positive for: Skin changes Negative for: Rash, Sun Sensitive Rash, Hair loss and Nail changes EYES: Negative for: Eye pain, Eye redness, Visual disturbance, Eye dryness CARDIOVASCULAR: Positive for: Chest pain Negative for: Leg swelling GENITOURINARY: Negative for: Dysuria, Hematuria, Ulceration HEMATOLOGIC/LYMPHATIC: Negative for: Swollen glands All other reviewed and negative other than HPI. Past Medical History No past medical history on file. Past Surgical History No past surgical history on file. Family History No family history on file. Social History Social History Tobacco Use Smoking status: Never Smokeless tobacco: Never Current Medications Current Outpatient Medications Medication Sig ustekinumab (STELARA) 90 mg/mL injection INJECT 1 ML UNDER THE SKIN EVERY 3 MONTHS betamethasone dipropionate (DIPROSONE) 0.05 % cream APPLY ONE APPLICATION VIA EXTERNAL ROUTE TO AFFECTED AREA ONCE DAILY carvedilol (COREG) 12.5 mg tablet TAKE ONE TABLET BY MOUTH TWICE A DAY ( IN THE MORNING AND IN THE EVENING ) WITH FOOD HYDROcodone-Acetaminophen (NORCO) 10-325 mg per tablet Take 1 tablet by mouth twice daily as needed. morphine SR (MS CONTIN) 30 mg 12 hr tablet TAKE ONE TABLET BY MOUTH EVERY 12 HOURS -FILL ON [id number] TROKENDI XR 100 mg capsule TROKENDI XR 200 mg capsule pravastatin (PRAVACHOL) 40 mg tablet TAKE ONE TABLET BY MOUTH DAILY FOR 90 DAYS SUMAtriptan (IMITREX) 100 mg tablet Take 100 mg by mouth. SUMAtriptan (IMITREX) 20 mg/actuation nasal spray Use 1 [place] in the nose every 2 hours as needed. cyanocobalamin (VITAMIN B-12) 100 mcg tab Take 100 mcg by mouth. ferrous sulfate 325 mg (65 mg iron) tablet Take 325 mg by mouth. cholecalciferol (VITAMIN D3) 400 unit tab Take 400 Units by mouth. duloxetine (CYMBALTA) 60 mg ORAL CpDR Take one(1) tablet daily. folic acid 1 mg ORAL Tab Take one (1) tablet daily. metaxalone (SKELAXIN) 800 mg ORAL Tab 1 tab 3 times per day No current facility-administered medications for this visit. Labs Imaging Last XR Hand/Finger - Impression Only No resulted procedures found. Last MRI Hand - Impression Only No resulted procedures found. Last XR Chest - Impression Only No resulted procedures found. Last XR Cervical Spine - Impression Only No resulted procedures found. Health Maintenance Current Immunizations Reviewed on 12/03/2022 Name Date COVID-19 vaccine (MODERNA) 09/15/2023 COVID-19 vaccine, bivalent (MODERNA) 09/16/2022 COVID-19 vaccine, monovalent (MODERNA) 12/22/2021, 06/10/2021, 12/26/2020, 11/28/2020 influenza (IIV3) vaccine 05/20/2021, 04/26/2019 influenza (IIV4) vaccine 06/21/2022, 05/28/2020, 05/22/2020, 04/26/2019, 07/20/2018, 06/29/2017, 08/05/2015 influenza (RIV4) vaccine 05/30/2021 zoster (RZV) vaccine 04/26/2019, 01/13/2019 Physical Exam GENERAL APPEARANCE: Well groomed. Alert and oriented x 3. In no distress. VITAL SIGNS: BP 117/77 Pulse 75 Wt 182 lb 12.2 oz (82.9kg) SKIN: No rash, thickening, nodules, discoloration. EYES: PERRL, EOMI. No inflammation seen. HENT: External examination and palpation of the ears and nose normal. Lips, teeth, and gums normal. Oropharynx and tongue normal. No lesions or exudate. NECK: No mass or asymmetry. RESPIRATORY: Normal respiratory effort. Clear to auscultation and percussion. CARDIOVASCULAR: Heart RRR without gallop, murmur, or rub. No bruits across chest or neck. EXTREMITIES: Normal and equal pulses in all 4 extremities. No edema. ABDOMEN: BS normal. No bruits, No tenderness, mass, or hepatosplenomegaly. NEUROLOGIC: Sensory exam normal. MUSCULOSKELETAL EXAMINATION: Soft tissue tender points: None Motor exam: Normal 5+/5+ muscle strength. Normal bulk and tone. Cervical spine: No visible abnormalities. Full ROM. No tenderness to palpation. Thoracic spine: No visible abnormalities. No tenderness to palpation. Lumbar spine: No visible abnormalities. Full ROM. No tenderness to palpation. Joint Exam 07/25/2024 Right Left Hip Tender Knee Tender The following joints were examined and normal: Left Sternoclavicular, Right Sternoclavicular, Left Acromioclavicular, Right Acromioclavicular, Left Glenohumeral, Right Glenohumeral, Left Elbow, Right Elbow, Left Wrist, Right Wrist, Left MCP 1, Right MCP 1, Left MCP 2, Right MCP 2, Left MCP 3, Right MCP 3, Left MCP 4, Right MCP 4, Left MCP 5, Right MCP 5, Left IP (thumb), Right IP (thumb), Left PIP 2 (finger), Right PIP 2 (finger), Left PIP 3 (finger), Right PIP 3 (finger), Left PIP 4 (finger), Right PIP 4 (finger), Left PIP 5 (finger), Right PIP 5 (finger), Left Knee, Left Ankle, Right Ankle, Left MTP 1, Right MTP 1, Left MTP 2, Right MTP 2, Left MTP 3, Right MTP 3, Left MTP 4, Right MTP 4, Left MTP 5, Right MTP 5 Joint Exam Data (across time) 07/25/2024 03/19/2024 11/14/2023 07/14/2023 12/03/2022 Joint Exam Total Tender 1 1 1 3 5 Total Swollen 0 0 0 0 0 Impression Diagnoses: (L40.50) Psoriatic arthritis (HCC) (primary encounter diagnosis) (M06.09) Rheumatoid arthritis of multiple sites with negative rheumatoid factor (HCC) (Z79.899) High risk medication use (D72.819) Leukopenia, unspecified type Plan Orders this visit: Office Visit on 07/25/24 COMPLETE BLOOD COUNT AND DIFFERENTIAL ALANINE AMINOTRANSFERASE / SGPT ASPARTATE AMINOTRANSFERASE/SGOT SEDIMENTATION RATE, WESTERGREN CREATININE BLD Discussed current status of her psoriatic arthritis/rheumatoid arthritis as modestly active with some recent flareups. We discussed her current treatment with Stelara 90 mg subcutaneously every 12 weeks has been a mainstay for a while. Presently her supply of Stelara is stable. I reviewed her most recent safety monitoring labs which were stable with a low-grade leukopenia which has been consistent for her. I have written orders for her labs to be obtained prior to next visit. I discussed the dizziness and chest pain issues. I suggested that she may want to pursue a neurologist and signal repairer on her own if her PCP is willing to do so. Return in about 4 months (around 11/22/2024). I spent a total of 30 minutes on the date of the service which included preparing to see the patient, [id number] patient care, completing clinical documentation, obtaining and/or reviewing separately obtained history, performing a medically appropriate examination, counseling and educating the patient/family/caregiver, ordering medications, tests, or procedures, independently interpreting results (not separately reported), and communicating results to the patient/family/caregiver. Medical Decision Making: Problems: Moderate: 1+ chronic illnesses with change Data: Unique test(s) ordered: 3+ Risk: High: High risk from testing/treatment Medical Decision Making Level: 4 - Moderate Chad Lacy MD Rheumatology Date: July 25, 2024 Time: 9:48 AM documented in this encounter [facility] 07-23-2024 Telephone encounter Note Patient has been identified by name and date of : Yes, Provider Dr. Lacy Date 07/23/2024 Time 2:45 pm Type of form: Lab results from [facility] Form received via: Fax When form is completed, contact N/A. Form has been forwarded to: Provider's desk. Provider name: On copy given to Dr. Lacy and one copy sent to bassam Tucker LPN [facility] 07-23-2024 Miscellaneous Notes Patient has been identified by name and date of : Yes, Provider Dr. Lacy Date 07/23/2024 Time 2:45 pm Type of form: Lab results from [facility] Form received via: Fax When form is completed, contact N/A. Form has been forwarded to: Provider's desk. Provider name: On copy given to Dr. Lacy and one copy sent to bassam Tucker LPN documented in this encounter [facility] 03-19-2024 History of Presen t illness Narrative Images from the original note were not included. Rheumatology Outpatient Clinic Date of Service: 03/19/2024 Patient: Alessandra Gray Medical Record: [id number] Primary Care Physician: Teto Tillman DO Last Rheumatology visit: 11/14/2023 (with Cahd Lacy) History of Present Illness Alessandra Gray is a 64 year old White female who presents on 03/19/2024 for an in-person visit for evaluation of Psoriatic Arthritis and Rheumatoid Arthritis. She is currently taking methylprednisolone, ustekinumab. HISTORY OF PRESENT ILLNESS This patient is well-known to me from my previous practice with [facility] with a history of psoriatic arthritis/seronegative rheumatoid arthritis. This patient has been on several different DMARDs and Biologics over the years. She has tried and failed methotrexate, Arava, Humira/Enbrel, Rituxan, Orencia, Actemra in the past. In the past year she has been on Stelara 45 mg dosage titrated to 90 mg dosage where she has achieved an very good clinical response. She was last seen in September 2021 was doing well and was due for her Stelara in November 2021 when she was unable to achieve prior authorization for the Stelara because I was between offices. She currently experiences stiffness and pain in the hands, wrists shoulders, knees, ankles and feet. She has now even had some right rib pain that is been moderately active. Generally she has done well without any new general medical issues from her other doctors. Meds tried/failed in the past: Methotrexate Leflunomide Humira/Enbrel Actemra Orencia Rituxan Xeljanz/Rinvoq INTERVAL HISTORY Patient returns for reevaluation and management of her psoriatic arthritis/rheumatoid arthritis. Since last visit the patient is main Stelara 90 mg subcutaneously once every 12 weeks. She continues to tolerate the Stelara well. She states however since last visit she has had 2 distinct flareups 1 occurred at the end of December beginning of January. As she believes at that time she was experiencing stress with her ipqbiq-br-xyn's health. The second time was towards the end of the cycle of her Stelara when it was due for shot in mid February. Each is these have subsided. When these occur it affects all the joints. She has also been noticing she is more sensitive to the barometer/weather changes which is new for her. As she is trying to manage this. She was recently treated for right eye infection that has resolved. Otherwise the remainder of her general health has remained stable. Patient-Entered Data PAIN EVALUATION No data found in the last 1 encounters. PROMIS Assessments RAPID 3 Mullen Activities of Daily Living No Data Dress self? - Get in and out of bed? - Walk outdoors? - Wash and dry body? - Get in and out of car? - RAPID 3 Disease Activity Weighed Score Levels: 0 - 1: Near Remission 1.3 - 2.0: Low Severity 2.3 - 4.0: Moderate Severity 4.3 - 10.0: High Severity Review of Systems Review of Systems CONSTITUTION: Negative for: Weight loss or gain, Fever. Chills, Night sweats HEENT: Negative for: Nosebleeds, Mouth sores, Trouble swallowing, Dry mouth RESPIRATORY: Negative for: Cough, Shortness of breath, Pain with breathing, Coughing up blood GASTROINTESTINAL: Negative for: Melena, Diarrhea, Abdominal pain, Heartburn, MUSCULOSKELETAL: Positive for: Arthralgias and Morning Joint Stiffness Negative for: Myalgias, Muscle weakness and Joint swelling NEUROLOGICAL: Negative for: Headaches, Numbness, Memory loss, SKIN: Positive for: Skin changes Negative for: Rash, Sun Sensitive Rash, Hair loss and Nail changes EYES: Negative for: Eye pain, Eye redness, Visual disturbance, Eye dryness CARDIOVASCULAR: Negative for: Chest pain, Leg swelling, Arrhythmia, Presyncope GENITOURINARY: Negative for: Dysuria, Hematuria, Ulceration HEMATOLOGIC/LYMPHATIC: Negative for: Swollen glands All other reviewed and negative other than HPI. Past Medical History No past medical history on file. Past Surgical History No past surgical history on file. Family History No family history on file. Social History Social History Tobacco Use Smoking status: Never Smokeless tobacco: Never Current Medications Current Outpatient Medications Medication Sig methylPREDNISolone (MEDROL, RENAE,) 4 mg Dose-Pack Take as directed omn pack ustekinumab (STELARA) 90 mg/mL injection INJECT 1 ML UNDER THE SKIN EVERY 3 MONTHS betamethasone dipropionate (DIPROSONE) 0.05 % cream APPLY ONE APPLICATION VIA EXTERNAL ROUTE TO AFFECTED AREA ONCE DAILY carvedilol (COREG) 12.5 mg tablet TAKE ONE TABLET BY MOUTH TWICE A DAY ( IN THE MORNING AND IN THE EVENING ) WITH FOOD HYDROcodone-Acetaminophen (NORCO) 10-325 mg per tablet Take 1 tablet by mouth twice daily as needed. morphine SR (MS CONTIN) 30 mg 12 hr tablet TAKE ONE TABLET BY MOUTH EVERY 12 HOURS -FILL ON 3111015 TROKENDI XR 100 mg capsule TROKENDI XR 200 mg capsule pravastatin (PRAVACHOL) 40 mg tablet TAKE ONE TABLET BY MOUTH DAILY FOR 90 DAYS SUMAtriptan (IMITREX) 100 mg tablet Take 100 mg by mouth. SUMAtriptan (IMITREX) 20 mg/actuation nasal spray Use 1 [place] in the nose every 2 hours as needed. cyanocobalamin (VITAMIN B-12) 100 mcg tab Take 100 mcg by mouth. ferrous sulfate 325 mg (65 mg iron) tablet Take 325 mg by mouth. cholecalciferol (VITAMIN D3) 400 unit tab Take 400 Units by mouth. duloxetine (CYMBALTA) 60 mg ORAL CpDR Take one(1) tablet daily. folic acid 1 mg ORAL Tab Take one (1) tablet daily. metaxalone (SKELAXIN) 800 mg ORAL Tab 1 tab 3 times per day No current facility-administered medications for this visit. Labs Imaging Last XR Hand/Finger - Impression Only No resulted procedures found. Last MRI Hand - Impression Only No resulted procedures found. Last XR Chest - Impression Only No resulted procedures found. Last XR Cervical Spine - Impression Only No resulted procedures found. Health Maintenance Current Immunizations Reviewed on 12/03/2022 Name Date COVID-19 vaccine, 2022- season (MODERNA) 09/15/2023 COVID-19 vaccine, bivalent (MODERNA) 09/16/2022 COVID-19 vaccine, monovalent (MODERNA) 12/22/2021 , 06/10/2021 , 12/26/2020 , 11/28/2020 influenza (IIV3) vaccine 05/20/2021 , 04/26/2019 influenza (IIV4) vaccine 06/21/2022 , 05/28/2020 , 05/22/2020 , 04/26/2019 , 07/20/2018 , 06/29/2017 , 08/05/2015 influenza (RIV4) vaccine 05/30/2021 zoster (RZV) vaccine 04/26/2019 , 01/13/2019 Physical Exam GENERAL APPEARANCE: Well groomed. Alert and oriented x 3. In no distress. VITAL SIGNS: BP 113/75 Pulse 75 Wt 186 lb 14.4 oz (84.8kg) SKIN: No rash, thickening, nodules, discoloration. EYES: PERRL, EOMI. No inflammation seen. HENT: External examination and palpation of the ears and nose normal. Lips, teeth, and gums normal. Oropharynx and tongue normal. No lesions or exudate. NECK: No mass or asymmetry. RESPIRATORY: Normal respiratory effort. Clear to auscultation and percussion. CARDIOVASCULAR: Heart RRR without gallop, murmur, or rub. No bruits across chest or neck. EXTREMITIES: Normal and equal pulses in all 4 extremities. No edema. ABDOMEN: BS normal. No bruits, No tenderness, mass, or hepatosplenomegaly. NEUROLOGIC: Sensory exam normal. MUSCULOSKELETAL EXAMINATION: Soft tissue tender points: None Motor exam: Normal 5+/5+ muscle strength. Normal bulk and tone. Cervical spine: No visible abnormalities. Full ROM. No tenderness to palpation. Thoracic spine: No visible abnormalities. No tenderness to palpation. Lumbar spine: No visible abnormalities. Full ROM. No tenderness to palpation. Joint Exam 03/19/2024 Right Left Hip Tender Knee Tender The following joints were examined and normal: Left Sternoclavicular, Right Sternoclavicular, Left Acromioclavicular, Right Acromioclavicular, Left Glenohumeral, Right Glenohumeral, Left Elbow, Right Elbow, Left Wrist, Right Wrist, Left MCP 1, Right MCP 1, Left MCP 2, Right MCP 2, Left MCP 3, Right MCP 3, Left MCP 4, Right MCP 4, Left MCP 5, Right MCP 5, Left IP, Right IP, Left PIP 2, Right PIP 2, Left PIP 3, Right PIP 3, Left PIP 4, Right PIP 4, Left PIP 5, Right PIP 5, Left Knee, Left Ankle, Right Ankle, Left MTP 1, Right MTP 1, Left MTP 2, Right MTP 2, Left MTP 3, Right MTP 3, Left MTP 4, Right MTP 4, Left MTP 5, Right MTP 5 Joint Exam Data (across time) 03/19/2024 11/14/2023 07/14/2023 12/03/2022 07/05/2022 Joint Exam Total Tender 1 1 3 5 2 Total Swollen 0 0 0 0 0 Impression Diagnoses: (L40.50) Psoriatic arthritis (HCC) (primary encounter diagnosis) (M06.09) Rheumatoid arthritis of multiple sites with negative rheumatoid factor (HCC) (Z79.899) High risk medication use Plan Orders this visit: Office Visit on 03/19/24 COMPLETE BLOOD COUNT AND DIFFERENTIAL ALANINE AMINOTRANSFERASE / SGPT ASPARTATE AMINOTRANSFERASE/SGOT SEDIMENTATION RATE, WESTERGREN CREATININE BLD methylPREDNISolone (MEDROL, RENAE,) 4 mg Dose-Pack Discussed current status of her psoriatic arthritis/rheumatoid arthritis as modestly active with some recent flareups. We discussed her current treatment with Stelara 90 mg subcutaneously every 12 weeks has been a mainstay for a while. She either has experienced a degree of stress that is causing the flareups or Stelara may be losing its effectiveness. At this time I would prefer to stay with the Stelara and utilize a Medrol Dosepak for significant flareups. I dispensed 1 Medrol Dosepak and 3 additional refills. She has been tried on several different DMARDs/Biologics in the past. I would give consideration to [place]/Cosentyx or Tremfya/Skyrizi as our next options if Stelara continues to lose effectiveness. I reviewed her most recent safety monitoring labs which were stable with a low-grade leukopenia which has been consistent for her. I have written orders for her labs to be obtained prior to next visit. Return in about 4 months (around 07/20/2024). I spent a total of 32 minutes on the date of the service which included preparing to see the patient, [id number] patient care, completing clinical documentation, obtaining and/or reviewing separately obtained history, performing a medically appropriate examination, counseling and educating the patient/family/caregiver, ordering medications, tests, or procedures, independently interpreting results (not separately reported), and communicating results to the patient/family/caregiver. Medical Decision Making: Problems: Moderate: 1+ chronic illnesses with change Data: Unique test result(s) reviewed: 3+ Unique test(s) ordered: 3+ Risk: High: High risk from testing/treatment Medical Decision Making Level: 4 - Moderate Chad Lacy MD Rheumatology Date: March 19, 2024 Time: 9:45 AM documented in this encounter [facility] 03-16-2024 Telephone encounter Note Outcome Approved today CaseId:[id number];Status:Approved ;Review Type:Prior Auth;Coverage Start Date:02/15/2024;Coverage End Date:03/16/2025; Authorization Expiration Date: 03/15/2025 Drug Stelara 90MG/ML syringe [facility] 03-16-2024 Miscellaneous Notes Outcome Approved today CaseId:[id number];Status:Approved ;Review Type:Prior Auth;Coverage Start Date:02/15/2024;Coverage End Date:03/16/2025; Authorization Expiration Date: 03/15/2025 Drug Stelara 90MG/ML syringe Prior authorization for Stelara initiated on Cover My Meds. Pending. documented in this encounter [facility] 03-16-2024 Telephone encounter Note Prior authorization for Stelara initiated on Cover My Meds. Pending. [facility] 03-12-2024 Telephone encounter Note Patient has been identified by name and date of : Yes, Provider Barbara Date 03/12/24 Time 10:32 AM Type of form: lab results from [facility] received via: Fax Form has been forwarded to: Sent for scanning Jennifer Bustos LPN [facility] 03-12-2024 Miscellaneous Notes Patient has been identified by name and date of : Yes, Provider Barbara Date 03/12/24 Time 10:32 AM Type of form: lab results from [facility] Form received via: Fax Form has been forwarded to: Sent for scanning Jennifer Bustos LPN documented in this encounter [facility] 11-14-2023 Miscellaneous Notes Received fax from [facility] lab results one copy given to Dr. Lacy for review and on copy sent to scanning. Received labs from Dr. Lacy to have scanned from [facility]. Sent to scanning documented in this encounter [facility] 11-14-2023 History of Presen t illness Narrative Images from the original note were not included. Rheumatology Outpatient Clinic Date of Service: 11/14/2023 Patient: Alessandra Gray Medical Record: [id number] Primary Care Physician: Teto Tillman DO Last Rheumatology visit: 07/14/2023 (with Chad Lacy) History of Present Illness Alessandra Gray is a 63 year old White female who presents on 11/14/2023 for an in-person visit for evaluation of Psoriatic Arthritis (Follow up). She is currently taking ustekinumab. HISTORY OF PRESENT ILLNESS This patient is well-known to me from my previous practice with [facility] with a history of psoriatic arthritis/seronegative rheumatoid arthritis. This patient has been on several different DMARDs and Biologics over the years. She has tried and failed methotrexate, Arava, Humira/Enbrel, Rituxan, Orencia, Actemra in the past. In the past year she has been on Stelara 45 mg dosage titrated to 90 mg dosage where she has achieved an very good clinical response. She was last seen in September 2021 was doing well and was due for her Stelara in November 2021 when she was unable to achieve prior authorization for the Stelara because I was between offices. She currently experiences stiffness and pain in the hands, wrists shoulders, knees, ankles and feet. She has now even had some right rib pain that is been moderately active. Generally she has done well without any new general medical issues from her other doctors. INTERVAL HISTORY Patient returns for reevaluation and management of her psoriatic arthritis/rheumatoid arthritis. She is maintained Stelara 90 mg subcutaneously every 3 months as her mainstay treatment. As she continues to tolerate this well without noticeable side effect. She states that her arthritis is doing well and has little in the way of joint complaints other than some hip pain from avascular necrosis. 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 Left hip is still active with pain and she manages. The right hip is improved with the injection therapy. She is noticing some mild achiness to the knees more on the right than the left. Most other joints are doing well. There are no new extra-articular manifestations of her arthritis. Her general health remains stable. Patient-Entered Data PAIN EVALUATION No data found in the last 1 encounters. PROMIS Assessments RAPID 3 [place] Activities of Daily Living No Data Dress self? - Get in and out of bed? - Walk outdoors? - Wash and dry body? - Get in and out of car? - RAPID 3 Disease Activity Weighed Score Levels: 0 - 1: Near Remission 1.3 - 2.0: Low Severity 2.3 - 4.0: Moderate Severity 4.3 - 10.0: High Severity Review of Systems Review of Systems CONSTITUTION: Negative for: Weight loss or gain, Fever. Chills, Night sweats HEENT: Negative for: Nosebleeds, Mouth sores, Trouble swallowing, Dry mouth RESPIRATORY: Negative for: Cough, Shortness of breath, Pain with breathing, Coughing up blood GASTROINTESTINAL: Negative for: Melena, Diarrhea, Abdominal pain, Heartburn, MUSCULOSKELETAL: Positive for: Arthralgias and Morning Joint Stiffness Negative for: Myalgias, Muscle weakness and Joint swelling NEUROLOGICAL: Negative for: Headaches, Numbness, Memory loss, SKIN: Negative for: Rashes, Sun sensitive rashes, Skin color changes, Hair loss, Nail changes EYES: Negative for: Eye pain, Eye redness, Visual disturbance, Eye dryness CARDIOVASCULAR: Negative for: Chest pain, Leg swelling, Arrhythmia, Presyncope GENITOURINARY: Negative for: Dysuria, Hematuria, Ulceration HEMATOLOGIC/LYMPHATIC: Negative for: Swollen glands All other reviewed and negative other than HPI. Past Medical History No past medical history on file. Past Surgical History No past surgical history on file. Family History No family history on file. Social History Social History Tobacco Use Smoking status: Never Smokeless tobacco: Never Current Medications Current Outpatient Medications Medication Sig betamethasone dipropionate (DIPROSONE) 0.05 % cream APPLY ONE APPLICATION VIA EXTERNAL ROUTE TO AFFECTED AREA ONCE DAILY carvedilol (COREG) 12.5 mg tablet TAKE ONE TABLET BY MOUTH TWICE A DAY ( IN THE MORNING AND IN THE EVENING ) WITH FOOD HYDROcodone-Acetaminophen (NORCO) 10-325 mg per tablet Take 1 tablet by mouth twice daily as needed. morphine SR (MS CONTIN) 30 mg 12 hr tablet TAKE ONE TABLET BY MOUTH EVERY 12 HOURS -FILL ON [id number] TROKENDI XR 100 mg capsule TROKENDI XR 200 mg capsule pravastatin (PRAVACHOL) 40 mg tablet TAKE ONE TABLET BY MOUTH DAILY FOR 90 DAYS calcitonin,salmon, (MIACALCIN, FORTICAL) 200 unit/actuation nasal spray Use 1 [place] in the nose. lidocaine (LIDODERM) 5 % Apply 1 Patch as directed q 24 HR. diclofenac (VOLTAREN) 1 % topical gel Apply 2 g to affected area. SUMAtriptan (IMITREX) 100 mg tablet Take 100 mg by mouth. SUMAtriptan (IMITREX) 20 mg/actuation nasal spray Use 1 [place] in the nose every 2 hours as needed. cyanocobalamin (VITAMIN B-12) 100 mcg tab Take 100 mcg by mouth. ferrous sulfate 325 mg (65 mg iron) tablet Take 325 mg by mouth. cholecalciferol (VITAMIN D3) 400 unit tab Take 400 Units by mouth. duloxetine (CYMBALTA) 60 mg ORAL CpDR Take one(1) tablet daily. folic acid 1 mg ORAL Tab Take one (1) tablet daily. metaxalone (SKELAXIN) 800 mg ORAL Tab 1 tab 3 times per day ustekinumab (STELARA) 90 mg/mL injection INJECT 1 ML UNDER THE SKIN EVERY 3 MONTHS Acidophilus-Pectin, [place] 25 million cell -100 mg tab Take by mouth. (Patient not taking: Reported on 11/14/2023) No current facility-administered medications for this visit. Labs Imaging Last XR Hand/Finger - Impression Only No resulted procedures found. Last MRI Hand - Impression Only No resulted procedures found. Last XR Chest - Impression Only No resulted procedures found. Last XR Cervical Spine - Impression Only No resulted procedures found. Health Maintenance Current Immunizations Reviewed on 12/03/2022 Name Date COVID-19 vaccine, 2022- season (MODERNA) 09/15/2023 COVID-19 vaccine, bivalent (MODERNA) 09/16/2022 COVID-19 vaccine, monovalent (MODERNA) 12/22/2021 , 06/10/2021 , 12/26/2020 , 11/28/2020 influenza (IIV3) vaccine 05/20/2021 , 04/26/2019 influenza (IIV4) vaccine 06/21/2022 , 05/28/2020 , 05/22/2020 , 04/26/2019 , 07/20/2018 , 06/29/2017 , 08/05/2015 influenza (RIV4) vaccine 05/30/2021 zoster (RZV) vaccine 04/26/2019 , 01/13/2019 Physical Exam GENERAL APPEARANCE: Well groomed. Alert and oriented x 3. In no distress. VITAL SIGNS: BP 133/79 Pulse 89 Resp 20 Wt 187 lb (84.8kg) SKIN: No rash, thickening, nodules, discoloration. EYES: PERRL, EOMI. No inflammation seen. HENT: External examination and palpation of the ears and nose normal. Lips, teeth, and gums normal. Oropharynx and tongue normal. No lesions or exudate. NECK: No mass or asymmetry. RESPIRATORY: Normal respiratory effort. Clear to auscultation and percussion. CARDIOVASCULAR: Heart RRR without gallop, murmur, or rub. No bruits across chest or neck. EXTREMITIES: Normal and equal pulses in all 4 extremities. No edema. ABDOMEN: BS normal. No bruits, No tenderness, mass, or hepatosplenomegaly. NEUROLOGIC: Sensory exam normal. MUSCULOSKELETAL EXAMINATION: Soft tissue tender points: None Motor exam: Normal 5+/5+ muscle strength. Normal bulk and tone. Cervical spine: No visible abnormalities. Full ROM. No tenderness to palpation. Thoracic spine: No visible abnormalities. No tenderness to palpation. Lumbar spine: No visible abnormalities. Full ROM. No tenderness to palpation. Joint Exam 11/14/2023 Right Left Hip Tender Knee Tender The following joints were examined and normal: Left Sternoclavicular, Right Sternoclavicular, Left Acromioclavicular, Right Acromioclavicular, Left Glenohumeral, Right Glenohumeral, Left Elbow, Right Elbow, Left Wrist, Right Wrist, Left MCP 1, Right MCP 1, Left MCP 2, Right MCP 2, Left MCP 3, Right MCP 3, Left MCP 4, Right MCP 4, Left MCP 5, Right MCP 5, Left IP, Right IP, Left PIP 2, Right PIP 2, Left PIP 3, Right PIP 3, Left PIP 4, Right PIP 4, Left PIP 5, Right PIP 5, Left Knee, Left Ankle, Right Ankle, Left MTP 1, Right MTP 1, Left MTP 2, Right MTP 2, Left MTP 3, Right MTP 3, Left MTP 4, Right MTP 4, Left MTP 5, Right MTP 5 Joint Exam Data (across time) Joint Exam 11/14/2023 07/14/2023 12/03/2022 07/05/2022 02/01/2022 Total Tender 1 3 5 2 12 Total Swollen 0 0 0 0 0 Impression Diagnoses: (M06.09) Rheumatoid arthritis of multiple sites with negative rheumatoid factor (HCC) (primary encounter diagnosis) (L40.50) Psoriatic arthritis ([facility]) (Z79.899) High risk medication use (M87.052) Avascular necrosis of bone of left hip ([facility]) Plan Orders this visit: Office Visit on 11/14/23 CBC + DIFF ALT/SGPT AST/SGOT BLD SED RATE WESTERGR[place] CREATININE BLD ustekinumab (STELARA) 90 mg/mL injection Discussed current status of her psoriatic arthritis/rheumatoid arthritis as reasonably stable on current treatment with Stelara 90 mg subcutaneously every 3 months. I did refill her Stelara for one syringe and 3 additional refills for 1 year supply. I reviewed her most recent safety monitoring labs and these are quite stable. I printed lab orders for her to do prior to next visit. We discussed her orthopedic surgery and pain management approach with injections and will continue to monitor hip pain going forward. Return in about 4 months (around 03/15/2024). I spent a total of 30 minutes on the date of the service which included preparing to see the patient, [id number] patient care, completing clinical documentation, obtaining and/or reviewing separately obtained history, performing a medically appropriate examination, counseling and educating the patient/family/caregiver, ordering medications, tests, or procedures, independently interpreting results (not separately reported), and communicating results to the patient/family/caregiver. Medical Decision Making: Problems: Low: Stable chronic illness Data: Unique test result(s) reviewed: 3+ Unique test(s) ordered: 3+ Risk: High: High risk from testing/treatment Medical Decision Making Level: 4 - Moderate Chad Lacy MD Rheumatology Date: November 14, 2023 Time: 9:53 AM documented in this encounter [facility] 08-25-2023 Evaluation note Encounter Date Diagnosis Assessment Notes Aug, Well adult exam (ICD-10 - Z00.00) 63-year-old female who has multiple chronic medical conditions but is overall doing well with her current medication regimen. She continues to follow with rheumatology and she is going to be seen Ortho next week due to bilateral hip avascular necrosis. Patient had lab work done couple months ago with rheumatology and results this was reviewed and no concerning findings. She is due coming up in October for repeat lipid panel and metabolic panel and this was ordered for today. 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 She will be contacted with results once reviewed. Patient declines mammogram at this time. She will follow-up in 1 year or sooner if an acute issue arises. 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 Both hips show AVN changes. Both hips show intact subchondral bone. The left hip does show some thinning of the articular cartilage. I believe this is a fairly stable process. I would feel more comfortable if we had a second opinion from orthopedic surgery to look at this and render their opinion. The patient will work with her local orthopedic group to investigate this further. Dr. Lacy [facility] Miscellaneous Notes* Telephone Encounter - Nelly Simpson - 07/11/2023 4:40 PM EDT Received outside lab result from [facility] under pt chart for review [facility] note* Encounter Date Diagnosis Assessment Notes Treatment Notes Treatment Clinical Notes Jun, Immunization due (ICD-10 - Z23) [facility] Other 08-23-2023 Evaluation note* Encounter Date Diagnosis Assessment Notes Treatment Notes Treatment Clinical Notes Apr, Dizziness (ICD-10 - R42) Patient's dizziness is most consistent with vestibular issues and patient was given a vestibular rehab exercise handout to begin doing. Her issue with dizziness has resolved in the last 2 weeks therefore I do not recommend any aggressive testing. She is not getting any syncope or near syncope therefore cardiac is less likely. I would start the rehab exercises and monitor for worsening symptoms. If they occur then further work-up can be initiated at that time. Patient was understand agrees with this plan. [facility] Other 04-03-2023 Miscellaneous Notes* Telephone Encounter - Eliz Tucker LPN - 12/13/2022 10:21 AM EDT Most recent Rheumatology visit: 12/03/2022 (with Chad Lacy) Recent Office Visits - This Specialty 12/03/2022 Psoriatic arthritis ([facility]) Rheumatology Chad Lacy MD 07/05/2022 Psoriatic arthritis ([facility]) Rheumatology Chad Lacy MD 02/01/2022 Psoriatic arthritis (HCC) Rheumatology Chad Lacy MD Upcoming Rheumatology Appointments - Next 365 Days Visit Type Date Time Department [facility] EST [facility] 07/14/2023 9:30 AM [facility] CBC: None on file in the last 6 months Vitamin D: None on file in the last 6 months LFT: None on file in the last 6 months Creatinine:None on file in the last 6 months ESR/CRP: None on file in the last 6 months Uric Acid: None on file in the last 6 months Open Standing (Multiple Instance) Lab Orders None Open Future (Single Instance) Lab Orders Expected Expires Ordered CBC + DIFF [SQCBCDIF] 12/03/22 02/02/23 12/03/22 Auth. provider: Chad Lacy MD Assoc. diagnoses: Psoriatic arthritis (HCC), Rheumatoid arthritis of multiple sites with negative rheumatoid factor (HCC), High risk medication use ALT/SGPT [SQALT] 12/03/22 02/02/23 12/03/22 Auth. provider: Chad Lacy MD Assoc. diagnoses: Psoriatic arthritis (HCC), Rheumatoid arthritis of multiple sites with negative rheumatoid factor (HCC), High risk medication use AST/SGOT BLD [SQAST] 12/03/22 02/02/23 12/03/22 Auth. provider: Chad Lacy MD Assoc. diagnoses: Psoriatic arthritis (HCC), Rheumatoid arthritis of multiple sites with negative rheumatoid factor (HCC), High risk medication use SED RATE WESTERGREN [SQWSR] 12/03/22 02/02/23 12/03/22 Auth. provider: Chad Lacy MD Assoc. diagnoses: Psoriatic arthritis (HCC), Rheumatoid arthritis of multiple sites with negative rheumatoid factor (HCC), High risk medication use CREATININE BLD [SQCRET] 12/03/22 02/02/23 12/03/22 Auth. provider: Chad Lacy MD Assoc. diagnoses: Psoriatic arthritis (HCC), Rheumatoid arthritis of multiple sites with negative rheumatoid factor (HCC), High risk medication use [facility] Miscellaneous Notes* Telephone Encounter - Sara Franklin Ma - 11/26/2022 8:41 AM EDT Received lab results from [facility] collected on 11/25 See scanned docs documented in this [facility] Evaluation note* Encounter Date Diagnosis Assessment Notes Treatment Notes Treatment Clinical Notes Oct, Hypertension (ICD-10 - I10) [facility] Other 11-10-2022 Miscellaneous Notes* Telephone Encounter - Sara Noemi James - 07/22/2022 3:37 PM EST Received lab result from [facility] 06/30 See scanned docs documented [facility] Evaluation note* Encounter Date Diagnosis Assessment Notes Treatment Notes Treatment Clinical Notes Jun, Encounter for immunization (ICD-10 - Z23) [facility] Other 07-26-2022 Evaluation note* Encounter Date Diagnosis Assessment Notes Treatment Notes Treatment Clinical Notes Mar, Depression (ICD-10 - F32.9) [facility] Other 05-23-2022 History of Present illness Narrative* Chad Lacy MD - 02/01/2022 10:07 AM EDT Images from the original note were not included. Rheumatology Outpatient Clinic Date of Service: 02/01/2022 Patient: Alessandra Gray Medical Record: [id number] Primary Care Physician: Baljeet Barnard MD Last [facility] visit: [facility] Referring Provider: SELF History of Present Illness Alessandra Gray is a 61 year old White female who presents on 02/01/2022 for an in-person visit for evaluation of Psoriatic Arthritis and Rheumatoid Arthritis. HISTORY OF PRESENT ILLNESS This patient is well-known to me from my previous practice with [facility] with a historyof psoriatic arthritis/seronegative rheumatoid arthritis. This patient has been on several different DMARDs and Biologics over the years. She has tried and failed methotrexate, Arava, Humira/Enbrel, Rituxan, Orencia, Actemra in the past. In the past year she has been on Stelara 45 mg dosage titrated to 90 mg dosage where she has achieved an very good clinical response. She was last seen in September 2021 was doing well and was due for her Stelara in November 2021 when she was unable to achieve priorauthorization for the Stelara because I was between offices. She currently experiences stiffness and pain in the hands, wrists shoulders, knees, ankles and feet. She has now even had some right rib pain that is been moderately active. Generally she has done well without any new general medical issues from her other doctors. Patient-Entered Data PAIN EVALUATION 02/01/2022 0945 Pain Level: 5 PROMIS Assessments RAPID 3 [place] Activities of Daily Living No Data Dress self? - Get in and out of bed? - Walk outdoors? - Wash and dry body? - Get in and out of car? - RAPID 3 Disease Activity Weighed Score Levels: 0 - 1: Near Remission 1.3 - 2.0: Low Severity 2.3 - 4.0: Moderate Severity 4.3 - 10.0: High Severity Review of Systems Review of Systems CONSTITUTION: Negative for: Weight loss or gain, Fever. Chills, Night sweats HEENT: Negative for: Nosebleeds, Mouth sores, Trouble swallowing, Dry mouth RESPIRATORY: Negative for: Cough, Shortness of breath, Pain with breathing, Coughing up blood GASTROINTESTINAL: Negative for: Melena, Diarrhea, Abdominal pain, Heartburn, MUSCULOSKELETAL: Positive for: Arthralgias, Myalgias, Joint swelling and Morning Joint Stiffness Negative for: Muscle weakness NEUROLOGICAL: Positive for: Headaches Negative for: Numbness and Memory loss SKIN: Positive for: Skin changes (psoriasis) Negative for: Rash, Sun Sensitive Rash, Hair loss and Nail changes EYES: Negative for: Eye pain, Eye redness, Visual disturbance, Eye dryness CARDIOVASCULAR: Positive for: Chest pain (rib pain in right side) Negative for: Leg swelling GENITOURINARY: Negative for: Dysuria, Hematuria, Ulceration HEMATOLOGIC/LYMPHATIC: Negative for: Swollen glands All other reviewed and negative other than HPI. Past Medical History No past medical history on file. Past Surgical History No past surgical history on file. Family History No family history on file. Social History Social History Tobacco Use Smoking status: Never Smoker Smokeless tobacco: Never Used Substance Use Topics Alcohol use: Not on file Drug use: Not on file Current Medications Current Outpatient Medications Medication Sig TROKENDI XR 100 mg capsule TROKENDI XR 200 mg capsule pravastatin (PRAVACHOL) 40 mg tablet TAKE ONE TABLET BY MOUTH DAILY FOR 90 DAYS carvedilol (COREG) 25 mg tablet Take 25 mg by mouth. HYDROcodone-acetaminophen (NORCO) 5-325 mg per tablet Take 1 tablet by mouth every 6 hours as needed. calcitonin,salmon, (MIACALCIN, FORTICAL) 200 unit/actuation nasal spray Use 1 [place] in the nose. lidocaine (LIDODERM) 5 % Apply 1 Patch as directed q 24 HR. diclofenac (VOLTAREN) 1 % topical gel Apply 2 g to affected area. SUMAtriptan (IMITREX) 100 mg tablet Take 100 mg by mouth. SUMAtriptan (IMITREX) 20 mg/actuation nasal spray Use 1 [place] in the nose every 2 hours as needed. cyanocobalamin (VITAMIN B-12) 100 mcg tab Take 100 mcg by mouth. ferrous sulfate 325 mg (65 mg iron) tablet Take 325 mg by mouth. cholecalciferol (VITAMIN D3) 400 unit tab Take 400 Units by mouth. Acidophilus-Pectin, [place] 25 million cell -100 mg tab Take by mouth. ustekinumab (STELARA) 90 mg/mL injection Inject 1 mL subcutaneously every 3 months. duloxetine (CYMBALTA) 60 mg ORAL CpDR Take one(1) tablet daily. folic acid 1 mg ORAL Tab Take one (1) tablet daily. metaxalone (SKELAXIN) 800 mg ORAL Tab 1 tab 3 times per day morphine SR (BK) 50 mg ORAL CSRP 1 tab every 12hours No current facility-administered medications for this visit. Labs Imaging Last XR Hand/Finger - Impression Only No resulted procedures found. Last MRI Hand - Impression Only No resulted procedures found. Last XR Chest - Impression Only No resulted procedures found. Last XR Cervical Spine - Impression Only No resulted procedures found. Health Maintenance Current Immunizations Reviewed on 02/01/2022 No immunizations on file. Physical Exam GENERAL APPEARANCE: Well groomed. Alert and oriented x 3. In no distress. VITAL SIGNS: BP 116/65 Pulse 74 Temp (Src) 97.7 (Temporal) Ht 5' 5 (1.65m) Wt 184 lb (83.5kg) BMI 30.62 kg/(m^2). SKIN: No rash, thickening, nodules, discoloration. EYES: PERRL, EOMI. No inflammation seen. HENT: External examination and palpation of the ears and nose normal. Lips, teeth, and gums normal.Oropharynx and tongue normal. No lesions or exudate. NECK: No mass or asymmetry. RESPIRATORY: Normal respiratory effort. Clear to auscultation and percussion. CARDIOVASCULAR: Heart RRR without gallop, murmur, or rub. No bruits across chest or neck. EXTREMITIES: Normal and equal pulses in all 4 extremities. No edema. ABDOMEN: BS normal. No bruits, No tenderness, mass, or hepatosplenomegaly. NEUROLOGIC: Sensory exam normal. MUSCULOSKELETAL EXAMINATION: Soft tissue tender points: None Motor exam: Normal 5+/5+ muscle strength. Normal bulk and tone. Cervical spine: No visible abnormalities. Full ROM. No tenderness to palpation. Thoracic spine: No visible abnormalities. No tenderness to palpation. Lumbar spine: No visible abnormalities. Full ROM. No tenderness to palpation. Joint Exam 02/01/2022 Right Left Glenohumeral Tender Tender Wrist Tender Tender MCP 2 Tender Tender MCP 3 Tender Tender MCP 4 Tender Tender Knee Tender Tender Ankle Tender Tender MTP 1 Tender Tender MTP 2 Tender Tender MTP 3 Tender Tender MTP 5 Tender The following joints were examined and normal: Left Sternoclavicular, Right Sternoclavicular, Left Acromioclavicular, Right Acromioclavicular, Left Elbow, Right Elbow, Left MCP 1, Right MCP 1, Left MCP 5, Right MCP 5, Left IP, Right IP, Left PIP 2, Right PIP 2, Left PIP 3, Right PIP 3, Left PIP 4, Right PIP 4, Left PIP 5, Right PIP 5, Left MTP 4, Right MTP 4, Right MTP 5 Joint Exam Data (across time) Joint Exam 02/01/2022 Total Tender 12 Total Swollen 0 Impression Diagnoses: (L40.50) Psoriatic arthritis (HCC) (primary encounter diagnosis) (M06.09) Rheumatoid arthritis of multiple sites with negative rheumatoid factor (HCC) (Z79.899) High risk medication use (D72.819) Leukopenia, unspecified type Plan Orders this visit: Office Visit on 02/01/22 CBC + DIFF ALT/SGPT AST/SGOT BLD SED RATE [place] CREATININE BLD ustekinumab (STELARA) 90 mg/mL injection *Discontinued* TROKENDI XR 100 mg capsule TROKENDI XR 200 mg capsule pravastatin (PRAVACHOL) 40 mg tablet carvedilol (COREG) 25 mg tablet HYDROcodone-acetaminophen (NORCO) 5-325 mg per tablet calcitonin,salmon, (MIACALCIN, FORTICAL) 200 unit/actuation nasal spray lidocaine (LIDODERM) 5 % diclofenac (VOLTAREN) 1 % topical gel SUMAtriptan (IMITREX) 100 mg tablet SUMAtriptan (IMITREX) 20 mg/actuation nasal spray cyanocobalamin (VITAMIN B-12) 100 mcg tab ferrous sulfate 325 mg (65 mg iron) tablet cholecalciferol (VITAMIN D3) 400 unit tab Acidophilus-Pectin, [place] 25 million cell -100 mg tab ustekinumab (STELARA) 90 mg/mL injection Discussed her psoriatic arthritis as the predominant arthritis and has been very responsive to Stelara 90 mg every 3 months. She is now flaring to a degree off of treatment by 2 months and needs thisresumed ERAN. She shares with me her recent lab tests that show her persistent leukopenia which is minimally changed from previous. Otherwise her labs are stable. I will resubmit for the Stelara and new lab orders for prior to next visit. I discussed the newer rib pain more than likely related to her psoriatic arthritis with an enthesopathic process and we will monitor as she resumes her Stelara. Return in about 5 months (around 07/04/2022). I spent a total of 35 minutes on the date of the service which included preparing to see the patient, [id number] patient care, completing clinical documentation, obtaining and/or reviewing separately obtained history, performing a medically appropriate examination, counseling and educating the pat ient/family/caregiver, ordering medications, tests, or procedures, independently interpreting results (not separately reported) and communicating results to the patient/family/caregiver. Medical Decision Making: Problems: Moderate: 1+ chronic illnesses with change Data: Unique test result(s) reviewed: 3+ Unique test(s) ordered: 3+ Risk: High: High risk from testing/treatment and Drug therapy requiring intensive monitoring Medical Decision Making Level: 4 - Moderate Chad Lacy MD Rheumatology Date: February 01, 2022 Time: 10:42 AM documented in [facility] Evaluation note* Encounter Date Diagnosis Assessment Notes Treatment Notes Treatment Clinical Notes Nov, Flank pain (ICD-10 - R10.9) Patient's flank pain and her symptoms are certainly concerning for possible kidney stone. Currently her symptoms are completely resolved and therefore there is no treatment needed at this time. Will obtain a urinalysis as well as a KUB to assess for underlying UTI versus kidney stone. Urinalysis today did show some leukocyte esterase but no other abnormalities. Will send for culture and await results. Will call patient with results of this and the KUB. Further treatment and assessment will be based on the results of these tests. Patient does have an appointment with urology in the middle of December. [facility] Other 12-08-2021 Evaluation note* Encounter Date Diagnosis Assessment Notes Treatment Notes Treatment Clinical Notes Aug, Migraine without aura, not intractable, without status migrainosus (ICD-10 - G43.009) Aug, Well adult exam (ICD-10 - Z00.00) 61-year-old female that has a few chronic medical conditions but appears to be doing well with her current medication regimen except for some chronic rhinitis that she has been battling for some time now. Patient will be trialed on Flonase for this issue and is instructed to call me if she does not feel that it is helping. Patient voiced understanding agrees with this plan. Aug, Hypertension (ICD-10 - I10) Aug, Depression (ICD-10 - F32.9) Aug, Chronic rhinitis (ICD-10 - J31.0) Aug, Encounter for screening for cardiovascular disorders (ICD-10 - Z13.6) [facility] Other 11-10-2021 Evaluation note* Encounter Date Diagnosis Assessment Notes Treatment Notes Treatment Clinical Notes Jul, Hypertension (ICD-10 - I10) [facility] Other 10-27-2021 Evaluation note* Encounter Date Diagnosis Assessment Notes Treatment Notes Treatment Clinical Notes Jun, Strain of rhomboid muscle, initial encounter (ICD-10 - S29.012A) Patient will have her muscle relaxer refilled and will be started on prednisone to help with the pain. She has very tight rhomboids that are in spasm currently and she likely did something to aggravate this even though she cannot think of anything and that it denied. Hopefully we can get it calmed down with steroids and muscle relaxers and if not she is to return and possibly have a trigger point injection at that time. Jun, Hypertension (ICD-10 - I10) Patient's blood pressure is mildly hypotensive and she is not symptomatic now but she states that sometimes she does get symptomatic with some dizziness therefore I will decrease her Coreg to 12.5 mg twice daily. [facility] Other Evaluation note* Diagnosis Psoriatic arthritis (HCC)- Primary Psoriatic arthropathy Rheumatoid arthritis of multiple sites with negative rheumatoid factor (HCC) High risk medication use Encounter for long-term (current) use of other medications Leukopenia, unspecified type documented in this encounter [facility] noteNo InformationNort Solapa4 Other Evaluation noteNo assessment information available [facility] Work Phone: Evaluation note* Diagnosis Psoriatic arthritis (HCC) Psoriatic arthropathy documented in this encounter [facility]* Diagnosis Rheumatoid arthritis of multiple sites with negative rheumatoid factor (HCC)- Primary Psoriatic arthritis (HCC) Psoriatic arthropathy High risk medication use Encounter for long-term (current) use of other medications Avascular necrosis of bone of left hip (HCC) documented [facility]* Diagnosis Psoriatic arthritis (HCC)- Primary Psoriatic arthropathy Rheumatoid arthritis of multiple sites with negative rheumatoid factor (HCC) High risk medication use Encounter for long-term (current) use of other medications [facility] Diagnosis Onset Date Resolution Status Hypertension acute Atypical chest pain noneacti ve [facility] Work Phone: Evaluation note* Diagnosis Psoriatic arthritis (HCC)- Primary Psoriatic arthropathy Rheumatoid arthritis of multiple sites with negative rheumatoid factor (HCC) High risk medication use Encounter for long-term (current) use of other medications Leukopenia, unspecified type [facility] Right [facility]- Primary Pain in joint, pelvic region and thigh Avascular necrosis of bone of right hip (CMS/HCC) [facility] Diagnosis Avascular necrosis of bone of right hip (CMS/HCC)- Primary Avascular necrosis of bone of left hip (CMS/HCC) Right hip pain Pain in joint, pelvic region and thigh Left hip pain Pain in joint, pelvic region and thigh [facility] Diagnosis Psoriatic arthritis (HCC) Psoriatic arthropathy [facility] Diagnosis Psoriatic arthritis (HCC)- Primary Psoriatic arthropathy Rheumatoid arthritis of multiple sites with negative rheumatoid factor (HCC) High risk medication use Encounter for long-term (current) use of other medications Chronic pain of both knees [facility] Diagnosis Primary osteoarthritis of right hip- Primary Primary localized osteoarthrosis, pelvic region and thigh Primary osteoarthritis of left hip Primary localized osteoarthrosis, pelvic region and thigh [facility] Diagnosis Psoriatic arthritis (HCC)- Primary Psoriatic arthropathy Rheumatoid arthritis of multiple sites with negative rheumatoid factor (HCC) Long-term current use of ustekinumab High risk medication use Encounter for long-term (current) use of other medications Chronic pain of both knees [facility] Diagnosis Avascular necrosis of bone of right hip (HCC)- Primary Asymptomatic postmenopausal status Inflammatory polyarthropathy (HCC) Unspecified inflammatory polyarthropathy Disorder of bone and cartilage Disorder of bone and cartilage, unspecified Anemia, unspecified type [facility] Diagnosis Primary osteoarthritis of right hip Primary localized osteoarthrosis, pelvic region and thigh Primary osteoarthritis of left hip Primary localized osteoarthrosis, pelvic region and thigh [facility] Diagnosis Avascular necrosis of bone of right hip (HCC)- Primary documented in this encounter [facility] general Narrative - Reported* Type Description Date Medical History Hypertension Medical History Hyperlipidemia Medical History Rheumatoid Arthritis Medical History Disc Disorder with Radiculopathy : cervical; lumbar Medical History Migraine Headaches Medical History Psoriasis Medical History rotator cuff repair Surgical History colonoscopy 2006 Surgical History CEASAREAN 1990 Surgical History HYSTERECTOMY 1990 Surgical History TUBES IN EARS Surgical History COLONOSCOPY DR AMIN 08-26-16 Hospitalization History SEE ABOVE Hospitalization History DEHYDRATION/ DIARRHEA FI MARCELLO GRIFFIN 08-27-2016 [facility] Other History general Narrative - Reported* Type Description Date Medical History Hypertension Medical History Hyperlipidemia Medical History Rheumatoid Arthritis Medical History Disc Disorder with Radiculopathy : cervical; lumbar Medical History Migraine Headaches Medical History Psoriasis Medical History rotator cuff repair Surgical History colonoscopy 2006 Surgical History CEASAREAN 1990 Surgical History HYSTERECTOMY 1990 Surgical History TUBES IN EARS Surgical History COLONOSCOPY DR AMIN 08-26-16 Surgical History rotator cuff 2021 Hospitalization History SEE ABOVE Hospitalization History DEHYDRATION/ DIARRHEA FI MARCELLO GRIFFIN 08-27-2016 [facility] Other Hospital Discharge instructions Additional Instructions DISCHARGE INSTRUCTIONS FOR COLONOSCOPY WHAT TO EXPECT: - You may feel full, gassy or cramping after your procedure. In some cases, this may be from a few hours to a day. Walking may help relieve the discomfort. - If you have polyp(s) removed you may note some minor bloody discharge after your first bowel movements. - You should begin to recover from anesthesia within 1 hour of the procedure, however may feel groggy for the next 24 hours. DO's AND DON'Ts: - Call your doctor right away if you have a hard abdomen, severe pain, are passing lots of bright red blood or clots. - Call your doctor if you develop any rashes, hives or difficulty breathing. - Let your doctor know if you have not had a bowel movement by 3 days after your procedure. - If you take 81 mg aspirin for your heart it is safe to resume this medication. - If you take other blood thinner medications your doctor will instruct you when these can safely be resumed. - Do NOT drive for 24 hours. - Do NOT operate machinery such as power tools, lawn mowers, snow blowers, sewing machines, etc. for 24 hours. - Avoid alcoholic beverages and drugs for allergies, nerves, or sleep. - Do NOT stay alone. Do NOT leave your child unattended. - Do NOT make important personal or business decisions or sign any legal documents. - Eat solid foods and drink liquids in smaller amounts than usual until normal appetite returns. If you should experience an upset stomach, liquids high in sugar content (soda, [place]-A[place], non-acid juices) are recommended. - You can resume normal activities tomorrow. FOLLOW UP & RECOMMENDATIONS: -Please call the office and make a follow up appointment to see me as needed -Notify the doctor if you have any problems. -Repeat colonoscopy to be scheduled with a 2 day bowel preparation and adult colonoscope -Follow up with PCP. -Office number [phone]. [facility] Work Phone: Reason for referral (narrative)No reason for referral information availableC[facility] Clinic [facility] Work Phone: Summary Purpose Family History No Family History Records Found Relationship Condition Age at Onset Recorded Date/T yonny Not Specified Hypertension Unknown Relationship Condition Age at Onset Recorded Date/T yonny father Hypertension Unknown grandparent Unknown mother Hypertension Unknown Unknown sister Diabetes mellitus Unknown Relationship Condition Age at Onset Recorded Date/T yonny father Hypertension Unknown grandparent Unknown mother Unknown Hypertension Unknown sister Diabetes mellitus Unknown Advance Directives No Advanced Directives Records Found Advance Directive Response Recorded Date/ Time Advance Directives No July 13, 2017 2:27pm Advance Directive Response Recorded Date/ Time Advance Directives No July 13, 2017 1:27pm Reason for Referral Specialty Diagnoses / Procedures Referred By Vidal t Referred To Contact Diagnoses Psoriatic arthritis (HCC) Chad Lacy MD [address] [place] [address] Referral ID Status Reason Start Date Expiration Date V isits Requested Visits Authorized [id number] Authorized 02/01/2022 02/01/2023 1 1 Chief Complaint and Reason for Visit Chief Complaint L40.50 Z79.899 M06.0 9 L40.50 M06.09 Z79.899 D72.819 M25.552 M87.052 Chief Complaint i10 f32.9 m06.9 z51. 81 l40.50 z79.899 d72.819 m87 cardiac concerns Reason for Visit Hypertension Atypical chest pain Chief Complaint Admit Date L40.50 July 20, 2024 1 1:11am Chief Complaint Admit Date see order January 02, 2025 9:3 9am Chief Complaint Admit Date SCREENING April 04, 2025 6:53 am Additional Source Comments INFORMATION SOURCE (unrecogn ized section and content) DATE CREATED AUTHOR 12/17/2018 [facility] ical [facility] DATE CREATED AUTHOR AUTHOR'S ORGANIZ ATION 11/20/2021 [facility] ical [facility] DATE CREATED AUTHOR AUTHOR'S ORGANIZ ATION 09/29/2024 [facility] DATE CREATED AUTHOR AUTHOR'S ORGANIZ ATION 04/19/2025 [facility] DATE CREATED AUTHOR AUTHOR'S ORGANIZ ATION 05/30/2025 [facility] Source Comments (unrecognize d section and content) In the event this informatio n is protected by the Federal Confidentiality of Alcohol and Drug Abuse Patient Records regulations: The Federal rules restrict any use of the information to criminally investigate or prosecute any alcohol or drug abuse patient.[facility] the event this information is protected by the Federal Confidentiality of Alcohol and Drug Abuse Patient Records regulations: The Federal rules restrict any use of the information to criminally investigate or prosecute any alcohol or drug abuse patient.[facility] the event this information is protected by the Federal Confidentiality of Alcohol and Drug Abuse Patient Records regulations: The Federal rules restrict any use of the information to criminally investigate or prosecute any alcohol or drug abuse patient.[facility] the event this information is protected by the Federal Confidentiality of Alcohol and Drug Abuse Patient Records regulations: The Federal rules restrict any use of the information to criminally investigate or prosecute any alcohol or drug abuse patient.[facility] HospitalIn the event this information is protected by the Federal Confidentiality of Alcohol and Drug Abuse Patient Records regulations: The Federal rules restrict any use of the information to criminally investigate or prosecute any alcohol or drug abuse patient.[facility] HospitalIn the event this information is protected by the Federal Confidentiality of Alcohol and Drug Abuse Patient Records regulations: The Federal rules restrict any use of the information to criminally investigate or prosecute any alcohol or drug abuse patient.[facility]In the event this information is protected by the Federal Confidentiality of Alcohol and Drug Abuse Patient Records regulations: The Federal rules restrict any use of the information to criminally investigate or prosecute any alcohol or drug abuse patient.[facility] HospitalIn the event this information is protected by the Federal Confidentiality of Alcohol and Drug Abuse Patient Records regulations: The Federal rules restrict any use of the information to criminally investigate or prosecute any alcohol or drug abuse patient.[facility] HospitalIn the event this information is protected by the Federal Confidentiality of Alcohol and Drug Abuse Patient Records regulations: The Federal rules restrict any use of the information to criminally investigate or prosecute any alcohol or drug abuse patient.[facility] HospitalIn the event this information is protected by the Federal Confidentiality of Alcohol and Drug Abuse Patient Records regulations: The Federal rules restrict any use of the information to criminally investigate or prosecute any alcohol or drug abuse patient.[facility] HospitalIn the event this information is protected by the Federal Confidentiality of Alcohol and Drug Abuse Patient Records regulations: The Federal rules restrict any use of the information to criminally investigate or prosecute any alcohol or drug abuse patient.[facility] HospitalIn the event this information is protected by the Federal Confidentiality of Alcohol and Drug Abuse Patient Records regulations: The Federal rules restrict any use of the information to criminally investigate or prosecute any alcohol or drug abuse patient.[facility] HospitalIn the event this information is protected by the Federal Confidentiality of Alcohol and Drug Abuse Patient Records regulations: The Federal rules restrict any use of the information to criminally investigate or prosecute any alcohol or drug abuse patient.[facility] HospitalIn the event this information is protected by the Federal Confidentiality of Alcohol and Drug Abuse Patient Records regulations: The Federal rules restrict any use of the information to criminally investigate or prosecute any alcohol or drug abuse patient.[facility] HospitalIn the event this information is protected by the Federal Confidentiality of Alcohol and Drug Abuse Patient Records regulations: The Federal rules restrict any use of the information to criminally investigate or prosecute any alcohol or drug abuse patient.[facility] HospitalIn the event this information is protected by the Federal Confidentiality of Alcohol and Drug Abuse Patient Records regulations: The Federal rules restrict any use of the information to criminally investigate or prosecute any alcohol or drug abuse patient.[facility] HospitalIn the event this information is protected by the Federal Confidentiality of Alcohol and Drug Abuse Patient Records regulations: The Federal rules restrict any use of the information to criminally investigate or prosecute any alcohol or drug abuse patient.[facility] HospitalIn the event this information is protected by the Federal Confidentiality of Alcohol and Drug Abuse Patient Records regulations: The Federal rules restrict any use of the information to criminally investigate or prosecute any alcohol or drug abuse patient.[facility] HospitalIn the event this information is protected by the Federal Confidentiality of Alcohol and Drug Abuse Patient Records regulations: The Federal rules restrict any use of the information to criminally investigate or prosecute any alcohol or drug abuse patient.[facility] HospitalIn the event this information is protected by the Federal Confidentiality of Alcohol and Drug Abuse Patient Records regulations: The Federal rules restrict any use of the information to criminally investigate or prosecute any alcohol or drug abuse patient.[facility] HospitalIn the event this information is protected by the Federal Confidentiality of Alcohol and Drug Abuse Patient Records regulations: The Federal rules restrict any use of the information to criminally investigate or prosecute any alcohol or drug abuse patient.[facility] HospitalIn the event this information is protected by the Federal Confidentiality of Alcohol and Drug Abuse Patient Records regulations: The Federal rules restrict any use of the information to criminally investigate or prosecute any alcohol or drug abuse patient.[facility] HospitalIn the event this information is protected by the Federal Confidentiality of Alcohol and Drug Abuse Patient Records regulations: The Federal rules restrict any use of the information to criminally investigate or prosecute any alcohol or drug abuse patient.[facility] HospitalIn the event this information is protected by the Federal Confidentiality of Alcohol and Drug Abuse Patient Records regulations: The Federal rules restrict any use of the information to criminally investigate or prosecute any alcohol or drug abuse patient.[facility] HospitalIn the event this information is protected by the Federal Confidentiality of Alcohol and Drug Abuse Patient Records regulations: The Federal rules restrict any use of the information to criminally investigate or prosecute any alcohol or drug abuse patient.[facility] HospitalIn the event this information is protected by the Federal Confidentiality of Alcohol and Drug Abuse Patient Records regulations: The Federal rules restrict any use of the information to criminally investigate or prosecute any alcohol or drug abuse patient.[facility] Reason for Visit (unrecogniz ed section and content) Reason Comments Psoriatic Arthritis Rheumatoid Arthritis Reason Comments Outside Lab Results Reason Comments Refill Request Reason Comments Results Reason Comments Psoriatic Arthritis Follow up Reason Comments Insurance Authorization Stelara Reason Comments Psoriatic Arthritis Rheumatoid Arthritis Reason Comments Psoriatic Arthritis Reason Comments Pain Reason Onset Date Comments MRI 08/21/2024 Reason Comments Results Labs Reason Comments Results Lab Reason Comments New Reason Comments Radiology XR Specialty Diagnoses / Procedures Referred By Contac t Referred To Contact XR IMAGING Diagnoses Primary osteoarthritis of right hip Primary osteoarthritis of left hip Procedures XR HIP BILATERAL 5V PEL/AP/LAT EACH HIP RADEX HIPS BILATERAL WITH PELVIS MINIMUM 5 VIEWS Azalea Izquierdo, JEYSON [address] [id number] Phone: tel: fax: X[facility] [place] [address] Referral ID Status Reason Start Date Expiration Date V isits Requested Visits Authorized [id number] Closed Auto-Generate d Referral 03/11/2025 04/06/2026 1 1 Reason Comments Medication Problem Reason Comments Insurance Authorization [id number] 90MG/ML syringes Care Teams (unrecognized sec tion and content) Team Status: Active Member Role Status Dates Teto Tillman DO Primary Care Provider Active Team Status: Active Member Role Status Dates Teto Tillman DO Primary Care Provider Active Start: December 13, 2024 Marcus Greenwood DO Attending Provider Active S tart: December 13, 2024 Team Status: Inactive Member Role Status Dates Teto Tillman DO Primary Care Provider Active Start: January 02, 2025 End: January 02, 2025 Chad Lacy MD [facility] Attending Provider Active Start: January 02, 2025 End: January 02, 2025 Team Status: Inactive Member Role Status Dates Teto N Cal , DO Primary Care Provider Active Merlin Steel Attending Provider Active Seasoner Hand Relationship Specialty Start Date End Date Baljeet Barnard [address] [place] [address] PCP - General 01/10/07 Seasoner Hand Relationship Specialty Start Date End Date Teto Tillman, DO [address] [facility] [place] [address] PCP - General Family Medicine 07/05/22 Seasoner Hand Relationship Specialty Start Date End Date Teto Tillman, DO [address] [facility] [place] [address] PCP - General Family Medicine 07/05/22 Seasoner Hand Relationship Specialty Start Date End Date Teto Tillman, DO [address] [facility] [place] [address] PCP - General Family Medicine 07/05/22 Team Status: Inactive Member Role Status Dates Teto Tillman , DO Primary Care Provider Active Chad Lacy MD [facility] Attending Provider Active Seasoner Hand Relationship Specialty Start Date End Date Cal Tetoya Werner, DO [address] [facility] [place] [address] PCP - General Family Medicine 07/05/22 Seasoner Hand Relationship Specialty Start Date End Date Teto Tillman, DO [address] [facility] [place] [address] PCP - General Family Medicine 07/05/22 Seasoner Hand Relationship Specialty Start Date End Date Teto Tillman, DO [address] [facility] [place] [address] PCP - General Family Medicine 07/05/22 Seasoner Hand Relationship Specialty Start Date End Date Teto Tillman DO [address] [place] [address] PCP - General Family Medicine 07/05/22 Seasoner Hand Relationship Specialty Start Date End Date Teto Tillman DO [address] [facility]. [facility] [place] [address] PCP - General Family Medicine 07/05/22 Team Status: Inactive Member Role Status Dates Teto Tillman DO Primary Care Provi roddy, Attending Provider Active Start: March 09, 2024 End: March 09, 2024 Chad Lacy MD [facility] Referring Provider Active Start: March 09, 2024 End: March 09, 2024 Team Status: Inactive Member Role Status Dates Teto Tillman DO Primary Care Provider Active Start: April 16, 2024 End: April 16, 2024 Merlin Rajput APRN Attending Provider Active Start: April 16, 2024 End: April 16, 2024 Team Status: Active Member Role Status Dates Teto Tillman DO Primary Care Provider Active Start: April 16, 2024 Merlin Rajput APRN Attending Provider Active Start: April 16, 2024 Seasoner Hand Relationship Specialty Start Date End Date Teto Tillman DO [address] [facility] [facility] [place] [address] PCP - General Family Medicine 07/05/22 Seasoner Hand Relationship Specialty Start Date End Date Teto Tillman DO [address] [facility] [facility] [place] [address] PCP - General Family Medicine 07/05/22 Seasoner Hand Relationship Specialty Start Date End Date Teto Tillman DO [address] [facility] [facility] [place] [address] PCP - General Family Medicine 07/05/22 Team Status: Inactive Member Role Status Dates Teto Tillman DO Primary Care Provider Active Start: July 20, 2024 End: July 20, 2024 Chad Lacy MD [facility] Attending Provider Active Start: July 20, 2024 End: July 20, 2024 Seasoner Hand Relationship Specialty Start Date End Date Teto Tillman MD [address] [facility] [place] [address] PCP - General Family Medicine 08/30/23 Seasoner Hand Relationship Specialty Start Date End Date Teto Tillman MD [address] [facility] [place] [address] PCP - General Family Medicine 08/30/23 Seasoner Hand Relationship Specialty Start Date End Date Teto Tillman MD [address] [facility] [place] [address] PCP - General Family Medicine 08/30/23 Seasoner Hand Relationship Specialty Start Date End Date Teto Tillman MD [address] [facility] [place] [address] PCP - General Family Medicine 08/30/23 Seasoner Hand Relationship Specialty Start Date End Date Teto Tillman DO [address] [facility] [place] [address] PCP - General Family Medicine 07/05/22 Padmini Welch Jr., [address] [facility] [address] [place] [address] Orthopedics 09/26/24 Seasoner Hand Relationship Specialty Start Date End Date Teto Tillman, DO [address] [place] [address] PCP - General Family Medicine 07/05/22 Padmini Welch Jr., DO [address] [facility] [address] [place] [address] Orthopedics 09/26/24 Seasoner Hand Relationship Specialty Start Date End Date Teto Tillman, DO [address] [place] [address] PCP - General Family Medicine 07/05/22 Padmini Welch Jr., DO [address] [facility] [address] [place] [address] Orthopedics 09/26/24 Seasoner Hand Relationship Specialty Start Date End Date Teto Tillman, DO [address] [facility] [place] [address] PCP - General Family Medicine 07/05/22 Padmini Welch Jr., DO [address] [facility] [address] [place] [address] Orthopedics 09/26/24 Seasoner Hand Relationship Specialty Start Date End Date Teto Tillman, DO [address] [facility] [address] PCP - General Family Medicine 07/05/22 Padmini Welch Jr., DO [address] [facility] [address] [place] [address] Orthopedics 09/26/24 Seasoner Hand Relationship Specialty Start Date End Date Teto Tillman, DO [address] [facility] [place] [address] PCP - General Family Medicine 07/05/22 Padmini Welch Jr., DO [address] [facility] [address] [place] [address] Orthopedics 09/26/24 Seasoner Hand Relationship Specialty Start Date End Date Teto Tillman, DO [address] [facility]. [facility] [place] [address] PCP - General Family Medicine 07/05/22 Padmini Welch Jr., DO [address] [address] Orthopedics 09/26/24 Seasoner Hand Relationship Specialty Start Date End Date Teto Tillman, DO [address] [facility] [address] PCP - General Family Medicine 07/05/22 Padmini Welch Jr., DO [address] [address] Orthopedics 09/26/24 Seasoner Hand Relationship Specialty Start Date End Date Teto Tillman, DO [address] [facility] [address] PCP - General Family Medicine 07/05/22 Padmini Welch Jr., DO [address] [place] [address] Orthopedics 09/26/24 Team Status: Active Member Role Status Dates Teto Tillman , Primary Care Provider Active Start: April 04, 2025 Sahara Gomez , DO Attending Provider Active St art: April 04, 2025 Sahara Goemz , DO Other Provider Active Start: April 04, 2025 Goals (unrecognized section and content) Goals may be documented in a n alternate section FOR RECORDS PERTAINING TO PATIENTS WHO ARE OR HAVE BEEN ENROLLED IN A CHEMICAL DEPENDENCY/SUBSTANCEABUSE PROGRAM, SOME INFORMATION MAY BE OMITTED. This clinical summary was aggregated from multiple sources. Caution should be exercised in using it in the provision of clinical care. This summary normalizes information from multiple sources, and as a consequence, information in this document may materially change the coding, format and clinical context of patient data. In addition, data may be omitted in some cases. CLINICAL DECISIONS SHOULD BE BASED ON THE PRIMARY CLINICAL RECORDS. [employer] provides no warranty or guarantee of the accuracy or completeness of information in this document.
== END 2025-05-31 09:47 | disposition home or self-care (01) ==
LOC: RAD 09:47
PROVIDERS: Visit Provider Orthopaedic Surgery
DX: M25.551 Pain in right hip (principal); M85.88 Other specified disorders of bone density and structure, other site
CPT/HCPCS: 73501